=== PATIENT | male | born 1935 | race Caucasian/White ===

== ENCOUNTER 2020-03-23 08:45 | Outpatient (CLI) | payer MEDICARE, SELFPAY ==
--- NOTE | ~2020-03-23 | MR_ITS ---
EXAMINATION: MR lumbar spine wo con EXAM DATE: 03/23/2020 10:06 INDICATION: 2 back surgeries. Back pain. TECHNIQUE: Multi-sequential, multiplanar MR images of the lumbar spine were obtained without contrast . Sagittal T1, T2, T2 fat saturation images. Axial T2 weighted images. Comparison is made to prior examination from 08/10/2019. FINDINGS: There is moderate to severe disc disease L3-4 and L4-5. There is 3 mm anterolisthesis L3 on L4 and 2 mm retrolisthesis L4 on L5. Mild L5-S1 disc disease. The conus medullaris terminates at the L1/2 level and has normal signal intensity and morphology. Prior left hemilaminotomy is L4-5. Omid jarek soft tissue is unremarkable. Level by level evaluation: T12-L1: Disc does not extend beyond the endplate margin. Facet arthropathy: Minimal. Neural foraminal stenosis: No stenosis. Central canal stenosis: No stenosis. L1-L2: Disc does not extend beyond the endplate margin. Facet arthropathy: Mild. Neural foraminal stenosis: No stenosis. Central canal stenosis: No stenosis. L2-L3: There is a mild diffuse disc bulge. Facet arthropathy: Mild to moderate. There is a left facet joint synovial cyst. Neural foraminal stenosis: Mild bilateral. Central canal stenosis: Mild. L3-L4: There is a large diffuse disc bulge. Facet arthropathy: Severe . Ligamentum flavum enlargement. Neural foraminal stenosis: Severe left, moderate to severe right. Central canal stenosis: Severe. L4-L5: There is a moderate to large diffuse disc bulge. Facet arthropathy: Moderate. Neural foraminal stenosis: Severe left, moderate to severe right. Central canal stenosis: Posterior decompression. L5-S1: There is a moderate diffuse disc bulge. Facet arthropathy: Mild to moderate. Neural foraminal stenosis: Moderate to severe left, moderate right. Central canal stenosis: Mild to moderate. Interval progression of the disc disease and stenosis at the L3-4 level. IMPRESSION: 1. L3-4 grade 1 anterolisthesis, severe central canal stenosis with mild progression compared to 201 9. 2. L3-4 and L4-5 significant neural foraminal stenosis. Reviewed, dictated and finalized at location A. IMPRESSION: 1. L3-4 grade 1 anterolisthesis, severe central canal stenosis with mild progr ession compared to 2019. 2. L3-4 and L4-5 significant neural foraminal stenosis.
== END 2020-03-23 08:46 | disposition home or self-care (01) ==
PROVIDERS: PCP Family Medicine; Visit Provider Nurse Practitioner Family
DX: M54.5 Low back pain (principal); M43.16 Spondylolisthesis, lumbar region; M48.061 Spinal stenosis, lumbar region without neurogenic claudication
CPT/HCPCS: 72148

== ENCOUNTER → 2021-08-09 03:09 | Outpatient (CLI) | payer MEDICARE, SELFPAY ==
[2021-08-10 07:19] LABS: SARS-CoV-2 RNA PCR Positive
== END ==
PROVIDERS: PCP Family Medicine; Visit Provider Family Medicine
DX: U07.1 COVID-19 (principal)
CPT/HCPCS: C9803; U0003; U0005

== ENCOUNTER → 2022-04-05 13:23 | Outpatient (CLI) | payer MEDICARE, SELFPAY ==
--- NOTE | ~2022-04-05 | DEXA_ITS ---
Bone Density Report Name: BINTA NICOLE Age: 87 Sex: Male Ethnicity: White Date of : 1935 Indication: screening for osteoporosis; height loss; postmenopausal Referring Provider: Alan, Allegra Rankin Study: Bone densitometry was performed. Exam Date: April 05, 2022 Accession number: [id number] Bone Density: Region BMD T-score Z-score Classification AP Spine (L1, L2) 1.125 0.7 1.9 Normal Femoral Neck (Left) 0.616 -2.3 -0.6 Osteopenia Total Hip (Left) 0.825 -1.4 -0.1 Osteopenia Femoral Neck (Right) 0.611 -2.3 -0.6 Osteopenia Total Hip (Right) 0.865 -1.1 0.2 Osteopenia Total Hip Mean 0.845 -1.3 0.1 Osteopenia World Health Organization criteria for BMD impression classify patients as: Normal (T-score at or above -1.0), Osteopenia (T-score between -1.0 and -2.5), or Osteoporosis (T-score at or below -2.5). 10-year Fracture Risk(1): Major Osteoporotic Fracture 10% Hip Fracture 4.5% Reported Risk Factors: [place] (), Neck BMD=0.611, BMI=28.4 (1) FRAX(R) Version 3.08. Fracture probability calculated for an untreated patient. Fracture probability may be lower if the patient has received treatment. Clinical Information Provided by Patient: Is being treated for osteoporosis Has used the following medications: Prolia (i.e. denosumab), Calcium Patient maximum height was 69.0 No regular weight bearing exercise Impression: The patient has low bone mass, based on the Left Femoral Neck T-score. The patient has an estimated ten-year risk of hip fracture of 4.5% and an estimated ten-year risk of major fracture of 10%, based on the WHO FRAX algorithm. Discussion: It is important to ask patients whether they are taking their medications and to encourage continued and appropriate compliance with their osteoporosis therapies to reduce fracture risk. It is also important to review their risk factors and encourage appropriate calcium and vitamin D intakes, exercise, fall prevention and other lifestyle measures. Follow-Up: Consider repeating this study in 2 years to reassess this patient's status, or sooner if there is some new clinical indication. Reported by: JANNA on 04/05/2022 2:04:00 PM. Reviewed, dictated and finalized at location AValeria BRUNNER
== END ==
PROVIDERS: PCP Family Medicine; Visit Provider Internal Medicine Endocrinology, Diabetes & Metabolism
DX: M81.0 Age-related osteoporosis without current pathological fracture (principal); M85.852 Other specified disorders of bone density and structure, left thigh; M85.851 Other specified disorders of bone density and structure, right thigh
CPT/HCPCS: 77080

== ENCOUNTER 2023-03-14 14:23 | Outpatient (CLI) | payer MEDICARE, SELFPAY ==
[2023-03-14 19:33] LABS: Alanine Aminotransferase 24 U/L (6-50); Albumin Level 4.1 g/dL (3.5-5.1); Alkaline Phosphatase 63 U/L (38-126); Anion Gap 4 mmol/L (8-16); Aspartate Amino Transferase 35 U/L (17-59); Bilirubin,Total 0.6 mg/dL (0.2-1.3); Blood Urea Nitrogen 39 mg/dL (9-20); Calcium 9.3 mg/dL (8.4-10.2); Carbon Dioxide 33 mmol/L (22-30); Chloride 101 mmol/L (98-107); Estimated Glomerular Filt Rate 41; Glucose 115 mg/dL (65-110); Potassium 4.4 mmol/L (3.4-5.0); Sodium 138 mmol/L (137-145)
== END 2023-03-14 14:24 | disposition home or self-care (01) ==
LOC: ANHGOSHLAB 14:24
PROVIDERS: PCP Family Medicine; Visit Provider Family Medicine
DX: R73.03 Prediabetes (principal); I10 Essential (primary) hypertension
CPT/HCPCS: 36415; 80053; 83036

== ENCOUNTER 2023-03-19 09:36 | Outpatient (CLI) | payer MEDICARE, SELFPAY ==
--- NOTE | ~2023-03-19 | MR_ITS ---
MRI of the lumbar spine Clinical History: Pain Technique: Axial T2-weighted images, and sagittal T1-weighted, T2-weighted, and T2 fat-sat images wer e acquired. Findings: No acute fracture seen. Stable 6 mm anterolisthesis of L3 over L4. There is severe degenera tive disc narrowing at L3-L4, L4-L5, and L5-S1. No suspicious bone marrow signal abnormality seen. At L1-L2, there is no disc bulge or herniation. There is minimal facet joint hypertrophy. No spinal c anal stenosis or neural foraminal narrowing. At L2-L3, there is advanced facet arthropathy with minimal disc bulge. There is an associated 6 mm le ft synovial cyst, which mildly compresses the thecal sac. Neural foramina are minimally narrowed. At L3-L4, disc bulge and uncovering is present with probable left foraminal disc protrusion. There is also severe facet arthropathy. These factors all contribute to severe thecal sac compression/spinal canal stenosis and severe left neural foraminal narrowing. There is moderate right neural foraminal n arrowing. At L4-L5, there is diffuse disc bulge and severe facet arthropathy. No central canal stenosis. There is severe bilateral neural foraminal narrowing, left worse than right. At L5-S1, there is diffuse disc bulge and moderate facet arthropathy. No spinal canal stenosis. There is severe bilateral neural foraminal narrowing. Paravertebral soft tissues are unremarkable. Impression: Severe degenerative spondylosis at L3-L4, L4-L5, and L5-S1, as detailed above. 6 mm anterolisthesis of L3 over L4, similar to prior exam. Reviewed, dictated and finalized at [facility]. Impression: Severe degenerative spondylosis at L3-L4, L4-L5, and L5-S1, as detailed above. 6 mm anterolisthesis of L3 over L4, similar to prior exam.
== END 2023-03-19 09:37 | disposition home or self-care (01) ==
PROVIDERS: PCP Family Medicine; Visit Provider Family Medicine
DX: R29.898 Other symptoms and signs involving the musculoskeletal system (principal); R26.81 Unsteadiness on feet; M54.50 Low back pain, unspecified; G89.29 Other chronic pain; R29.6 Repeated falls; M47.896 Other spondylosis, lumbar region
CPT/HCPCS: 72148

== ENCOUNTER 2023-04-18 09:54 | Outpatient (CLI) | payer MEDICARE, SELFPAY ==
[2023-04-18 12:57] LABS: Alanine Aminotransferase 19 U/L (6-50); Albumin Level 3.9 g/dL (3.5-5.1); Alkaline Phosphatase 43 U/L (38-126); Anion Gap 2 mmol/L (8-16); Aspartate Amino Transferase 28 U/L (17-59); Bilirubin,Total 0.7 mg/dL (0.2-1.3); Blood Urea Nitrogen 28 mg/dL (9-20); Calcium 8.6 mg/dL (8.4-10.2); Carbon Dioxide 33 mmol/L (22-30); Chloride 102 mmol/L (98-107); Estimated Glomerular Filt Rate 38; Glucose 106 mg/dL (65-110); Potassium 4.2 mmol/L (3.4-5.0); Sodium 137 mmol/L (137-145)
[2023-04-18 12:59] LABS: Parathyroid Intact 99.9 pg/mL (7.5-53.5)
[2023-04-18 13:01] LABS: Hemoglobin A1C 5.3 % (<5.7)
[2023-04-18 13:18] LABS: Free T4 Free Thyroxine 1.21 ng/mL (0.78-2.19); Vitamin D 25 Hydroxy 44.8 ng/mL
== END 2023-04-18 09:55 | disposition home or self-care (01) ==
LOC: ANHGOSHLAB 09:55
PROVIDERS: PCP Family Medicine; Visit Provider Nurse Practitioner
DX: M81.0 Age-related osteoporosis without current pathological fracture (principal); R73.01 Impaired fasting glucose
CPT/HCPCS: 36415; 80053; 82306; 83036; 83970; 84439; 84443

== ENCOUNTER 2023-04-23 10:00 | Outpatient (RCR) | payer MEDICARE, SELFPAY ==
--- NOTE | 2023-03-26 14:53 | PTOPEVAL1 ---
Assessment and note entered by Mariela Wang, PT, DPT Evaluation Information Assessment Status Evaluation Diagnosis unsteadiness on feet Onset 6-8 months Subjective Information Pt states he has chronic low back pain, he states he is limited in his standing tolerance d/t this. He states in the last 6-8 month he has noticed and increase in balance issues and unsteadiness when he is walking. He reports 4 falls in the last 6 months, he attributes all of these to balance. He is using a cane today and has been for the last 2 weeks, he states he would like to feel stable enough to get rid of the cane. Pt states he like to spend time outdoors walking and fishing. Reported Pain Level Pain Score 0: Self Report Assessment PT Clinical Summary Leobardo presents to therapy today for his initial evaluation with a diagnosis of unsteadiness on feet . Today he demonstrates decreased BLE strength L>R , decreased static and standing balance, and decreased functional mobility. He demonstrates significant L ankle weakness resulting in a mild foot drop during ambulation. He demonstrates a 40 /56 on the CORDOBA balance scale placing him at an increased risk for falls. Skilled physical therapy services are indicated to address the deficits noted above, to improve balance, strength, functional mobility, and to return to PLOF. Plan of Care Interventions Electrical Stimulation,Gait Training,Hot Pack/Cold Pack,Manual Therapy,Neuro Re-education,Patient/ Caregiver Educati,Therapeutic Activities, Therapeutic Exercise PT Services Indicated Yes Treatment Frequency and 2x/wk for 4 wks Duration These treatments will address the objective and functional deficits as defined above. The patient will be advanced safely and appropriately in order for the patient to progress towards his/her prior level of function. Additional exercises will be introduced and as well as a comprehensive home exercise program upon discharge, if needed, ?to ensure carryover of functional gains achieved in the clinic. This treatment plan has been reviewed and agreement upon by the patient.
--- NOTE | 2023-04-23 11:36 | PTOPDC ---
Assessment and note entered by Mariela Wang, PT, DPT Evaluation Information Assessment Status Discharge Diagnosis unsteadiness on feet Onset 6-8 months Subjective Information Pt states things are going slow but sure. Pt reports 50% to where he would like to be. Pt states his foot drop and balance and the biggest deficits. Reported Pain Level Pain Score 0: Self Report Assessment PT Clinical Summary Leobardo presents to therapy today for his initial evalution with a diagnosis of unsteadiness on feet . Today he reports improvement in his overall function despite having many measurable changes. His CORDOBA balance score did increased from 40/56 to 46/56 but his 2 min walk distance and 5xSTS time increased slightly. He declines any falls in the last month and states he feels good with continuing therpay on his own. He will be discharged at this time per pt request. If he needs additional therapy at a later date he will need a new order. Plan of Care PT Services Indicated No
== END 2023-04-23 15:48 | disposition home or self-care (01) ==
LOC: ANHGOSHPT 10:00
PROVIDERS: PCP Family Medicine; Visit Provider Family Medicine
DX: M54.50 Low back pain, unspecified (principal); R26.81 Unsteadiness on feet; R29.898 Other symptoms and signs involving the musculoskeletal system; G89.29 Other chronic pain
CPT/HCPCS: 97110; 97112; 97116; 97161; 97530

== ENCOUNTER 2023-05-21 06:56 | Day surgery (SDC) | payer MEDICARE, SELFPAY ==
[2023-05-09 13:19] VITALS: BMI 25.4
--- NOTE | ~2023-05-21 | XR_ITS ---
EXAMINATION: XR fluoroscopy no charge INDICATION: Left sacroiliac joint injection TECHNIQUE: 49 fluoroscopic images are submitted for review. Total fluoroscopic time is 7.4 seconds. COMPARISON: None available FINDINGS: Fluoroscopic images demonstrate injection of the left sacroiliac joint. Surgical clips are noted in the left pelvis. Please refer to procedure note for full details. IMPRESSION: 1. Please refer to procedure note for full details. Reviewed, dictated and finalized at location D.
[2023-05-21 07:15] VITALS: BP 121/54; PULSE 57; RESP 20; TEMP 36.7; O2SAT 99
--- NOTE | 2023-05-21 07:19 | WPDHPUPDATE1 ---
History and Physical Update Update Date/Time: 05/21/23 07:19 History and Physical has been reviewed, including an updated exam of the patient. There are NO changes in the patient's condition. Risks, benefits, and alternatives have been discussed and questions answered. Patient agrees to proceed with procedure.
[2023-05-21 08:20] VITALS: BP 144/59; PULSE 60; RESP 15; O2SAT 98
[2023-05-21] MEDS: LIDOCAINE HCL 1% PF INJ 5 ML VIAL 4 ML XX (08:20)
[2023-05-21] MEDS: BUPivacaine HCL 0.5% 10 ML AMP INFILTRATE (08:22)
[2023-05-21 08:27] VITALS: BP 132/56; PULSE 60; RESP 18; O2SAT 99
--- NOTE | 2023-05-21 09:39 | W.PM.PROC2 ---
Procedure Note - Detailed Date of Procedure 05/21/23 Pre-op Diagnosis Left Sacroiliitis Sacral Spondylosis Post-op Diagnosis Same Procedure Performed Left SAcroiliac Joint Steroid Injection with Fluoroscopy Surgeon Ger Torres MD Scientific Diver None. Anesthesia Local Indications Low Back Pain Findings None Description of Procedure INFORMED CONSENT: Risks, benefits and alternatives to the procedure were discussed in detail with the patient who expressed explicit understanding and consent to proceed. Patient was informed verbally and in written form regarding the risks associated with the procedure including the low risk of serious infection, bleeding/bruising, allergic reaction, nerve or organ injury, paralysis, procedural site pain or discomfort, worsening pain and/or mobility, failure to treat and/or disfigurement. The patient expressed explicit understanding and consent to proceed. All materials required for the procedure were available prior to procedure start. Site and side were marked prior to procedure and confirmed in the presence of the patient. PROCEDURE IN DETAIL: The patient was brought to the procedural suite and placed in the prone position. Patient was made comfortable with use of pillows under the head/chest, hips and ankles. Skin overlying the injection site on the affected side(s) was prepared broadly with ChloraPrep applicator and draped in a sterile manner. Aseptic technique was used throughout. The left SI joint was identified in the AP view and contralateral oblique angulation with caudal tilt was utilized to optimize visualization of the inferior and medial joint line representing the posterior portion of the joint. Local anesthesia was established by infiltration with approximately 5 mL of 2% lidocaine via a 1-1/2 inch 27-gauge needle. A 22-gauge 3.5 inch Quincke spinal needle was advanced until the needle entered the inferior third of the joint space approximately 1cm cephalad from its most inferior point. In the AP view, 0.5 mL of Omnipaque-300 contrast medium was injected after negative aspiration for CSF, blood or other bodily fluid, showing appropriate intra-articular spread of contrast without evidence of intravascular, perineural or intrathecal placement. A 2.0 mL solution containing 10 mg of dexamethasone in 0.5% PF bupivacaine was injected after repeat negative aspiration. Appropriate spread of the injectate was confirmed with washout of previous injected contrast. No parasthesias were elicited. Needle was removed completely intact without difficulty. Images were saved and documented in the patient chart. Patient's skin was cleansed and sterile bandage applied. The patient tolerated the procedure well. The patient was transported to the recovery area in stable condition where they were observed for an appropriate amount of time prior to discharge, without evidence of complication. The patient was instructed to avoid excessive activity for the next 48 hours, including climbing and frequent use of stairs. Showers only for 48 hours. They were instructed not to drive or operate heavy machinery for 24 hours. They are to monitor for severe headaches, fevers, chills, night sweats, erythema/swelling at the site or any other signs of infection, bleeding/bruising, bowel or bladder changes as well as new pain, weakness or numbness in the upper or lower extremity. Should they notice these changes, they are instructed to call our office immediately or report directly to the nearest Emergency Department if no answer or if after posted office hours. COMPLICATIONS: None COMMENTS: None EXPOSURE: Time: 7.4s, Dose: 3.34mGy CONTRAST WASTED: 14.5mL Omnipaque-300. Drains No Packing No Pathology None sent Complications No immediate complications Condition Stable Disposition PACU [facility] Billing Surgery - Charge Forward: Surgery Billing
== END 2023-05-21 08:49 | disposition home or self-care (01) ==
PROVIDERS: PCP Family Medicine; Visit Provider Anesthesiology Pain Medicine
PROC: (CPT G0260; principal; 2023-05-21 08:00)
DX: M46.1 Sacroiliitis, not elsewhere classified (principal)
CPT/HCPCS: G0260; 27096; 99199

== ENCOUNTER 2023-06-24 08:57 | Outpatient (CLI) | payer MEDICARE, SELFPAY ==
[2023-06-24 13:04] LABS: Basophils Percent Auto 0.4 % (0.2-1.2); Eosinophils Absolute Auto 0.2 K/mm3 (0-0.3); Eosinophils Percent Auto 4.3 % (0-4.4); Hematocrit 36.6 % (42.0-52.0); Hemoglobin 11.7 g/dL (14.0-18.0); Immature Granulocyte Absolute 0.02 K/mm3 (0.00-0.031); Immature Granulocyte Percent A 0.4 % (0-0.5); Lymphocytes Absolute Auto 1.71 K/mm3 (0.9-3.2); Lymphocytes Percent Auto 34.8 % (18.3-44.2); Mean Corpuscular Hemoglobin 31.4 pg (26-34); Mean Corpuscular Volume 98.1 fl (80-100); Mean Platelet Volume 10.7 fl (7.4-10.4); Monocytes Absolute Auto 0.6 K/mm3 (0.1-0.6); Monocytes Percent Auto 11.8 % (2.6-8.5); Neutrophils Absolute Auto 2.4 K/mm3 (1.3-6.7); Neutrophils Percent Auto 48.3 % (45.5-73.1); Platelet Count Result 133 k/mm3 (150-375); Red Blood Count 3.73 M/mm3 (4.6-6.20); Red Cell Distribution Width 12.5 % (11.5-14.5); White Blood Count 4.9 K/mm3 (4.5-10.0)
[2023-06-24 13:13] LABS: Alanine Aminotransferase 19 U/L (6-50); Albumin Level 3.6 g/dL (3.5-5.1); Alkaline Phosphatase 45 U/L (38-126); Anion Gap 1 mmol/L (8-16); Aspartate Amino Transferase 29 U/L (17-59); Bilirubin,Total 0.4 mg/dL (0.2-1.3); Blood Urea Nitrogen 22 mg/dL (9-20); Calcium 9.4 mg/dL (8.4-10.2); Carbon Dioxide 32 mmol/L (22-30); Chloride 100 mmol/L (98-107); Cholesterol 123 mg/dL (0-200); Estimated Glomerular Filt Rate 44; Glucose 91 mg/dL (65-110); HDL Direct 35 mg/dL; Sodium 133 mmol/L (137-145); Triglycerides 105 mg/dL (<150)
[2023-06-24 13:24] LABS: LDL Cholesterol Direct 74 mg/dL
[2023-06-25 00:20] LABS: Hemoglobin A1C 5.4 % (<5.7)
[2023-06-27 09:54] LABS: Vitamin D 1,25 (OH)2 Total 19 pg/mL (18-72); Vitamin D2 1,25 (OH)2 <8 pg/mL; Vitamin D3 1,25 (OH)2 19 pg/mL
[2023-06-27 18:48] LABS: PSA, Free <0.01 ng/mL; PSA, Total <0.1 ng/mL (<=4.0)
== END 2023-06-24 08:58 | disposition home or self-care (01) ==
PROVIDERS: Nurse Practitioner Family; PCP Family Medicine; Visit Provider Family Medicine
DX: R73.03 Prediabetes (principal); I10 Essential (primary) hypertension; Z12.5 Encounter for screening for malignant neoplasm of prostate; E55.9 Vitamin D deficiency, unspecified; E78.5 Hyperlipidemia, unspecified
CPT/HCPCS: 36415; 80053; 80061; 82652; 83036; 84153; 84154; 85025; G0103

== ENCOUNTER 2023-07-12 10:29 | Outpatient (CLI) | payer MEDICARE, SELFPAY ==
[2023-07-12 11:58] LABS: Basophils Percent Auto 0.3 % (0.2-1.2); Eosinophils Absolute Auto 0.3 K/mm3 (0-0.3); Eosinophils Percent Auto 4.4 % (0-4.4); Hematocrit 36.5 % (42.0-52.0); Hemoglobin 11.8 g/dL (14.0-18.0); Immature Granulocyte Absolute 0.01 K/mm3 (0.00-0.031); Immature Granulocyte Percent A 0.2 % (0-0.5); Immature Platelet Fraction Pct 5.8 % (0.9-11.2); Lymphocytes Absolute Auto 1.75 K/mm3 (0.9-3.2); Lymphocytes Percent Auto 29.4 % (18.3-44.2); Mean Corpuscular HGB Conc 32.3 g/dl (32-36); Mean Corpuscular Hemoglobin 31.4 pg (26-34); Mean Corpuscular Volume 97.1 fl (80-100); Mean Platelet Volume 10.9 fl (7.4-10.4); Monocytes Absolute Auto 0.6 K/mm3 (0.1-0.6); Monocytes Percent Auto 10.7 % (2.6-8.5); Neutrophils Absolute Auto 3.3 K/mm3 (1.3-6.7); Platelet Count Result 144 k/mm3 (150-375); Red Blood Count 3.76 M/mm3 (4.6-6.20); Red Cell Distribution Width 12.6 % (11.5-14.5)
== END 2023-07-12 10:30 | disposition home or self-care (01) ==
PROVIDERS: PCP Family Medicine; Visit Provider Nurse Practitioner Family
DX: D69.6 Thrombocytopenia, unspecified (principal); M10.9 Gout, unspecified
CPT/HCPCS: 36415; 84550; 85025; 85055

== ENCOUNTER 2023-08-26 01:58 | Day surgery (SDC) | payer MEDICARE, SELFPAY ==
[2023-08-15 11:27] VITALS: BMI 26.6
--- NOTE | 2023-08-15 11:31 | PC.NURSE ---
Report to the Outpatient Waiting Room, entrance under the green pavilion located off [facility], at time _0700_ on date _[id number]_. Planned Procedure Time: _0900_. Time changes happen often and if your time is changed the preop area will call you the afternoon before. - You and your visitor will be asked to self-screen and do not enter if you have any COVID symptoms. - A mask is optional within the hospital at this time. 1. NPO after midnight. 2. Take a bath/shower the evening before and morning of procedure. 3. Please take your scheduled medications, especially blood pressure and diabetes medications as prescribed, with small sips of water prior to procedure. You may also take your prescribed pain medicaitons as needed. DO NOT STOP ANY OF YOUR OTHER PRESCRIPTION MEDICATIONS PRIOR TO SURGERY ?EXCEPT THE FOLLOWING Please no make-up, nail croatian, hairspray, perfume, deodorant, or body powder the day of surgery. No jewelry (including any body piercings) or valuables the day of surgery, leave them at home. Please take a shower or bath the night before, or the morning of, surgery with an antibacterial soap. Wear comfortable, loose fitting clothing. - Jewelry must be removed prior to entering the operating room. Rings and piercings that are not removed may be cut off. - The hospital will not accept responsibility for valuables. - Please leave all valuables, including medications, at home the day of surgery. If you are going home after surgery, a licensed p d driver must drive you home. - NO public transportation without another adult if you receive anesthesia. - We recommend that an adult stay with you for 24 hours following discharge. - We also recommend that you do not drive, make important decision, drink alcoholic beverages, or take any drugs that were not prescribed by your health care provider for at least 24 hours after your discharge time. Follow any additional instructions given to you from your surgeon. If you or anyone in your household have experienced Covid symptoms in the past week, please notify your surgeon or the nurse liaison at the phone number below for possible testing. Telephone instructions given to __Patient___and asked if any additional questions and then verbalized understanding. Patient advised to call surgeon office or pre surgery nurse liaison [phone] if any additional questions.
--- NOTE | ~2023-08-26 | XR_ITS ---
EXAMINATION: XR fluoroscopy no charge DATE: 08/26/2023 10:14 INDICATION: Lumbar decompression TECHNIQUE: 11 fluoroscopic images of the lumbar spine were obtained during procedure performed by Dr. Torres. Radiologist was not present for the imaging or procedure. The amount of fluoroscopy time used during this procedure was 9.7 minutes. COMPARISON: None. FINDINGS: There is severe lower lumbar spondylosis. Fluoroscopic images demonstrate surgical instrumentation pr ojecting over the posterior elements on the left and right sides of the lower lumbar spine. IMPRESSION: 1. Fluoroscopy utilized during reported lumbar decompression bilaterally at the lower lumbar spine. S ee procedure note for further detail. Reviewed, dictated and finalized at location A. IMPRESSION: 1. Fluoroscopy utilized during reported lumbar decompression bilaterally at the lower lumbar spine. See procedure note for further detail.
--- NOTE | 2023-08-26 04:41 | PM.HPGS ---
History of Present Illness History of Present Illness Consent: Risks, benefits, and alternatives have been discussed and questions answered. Patient agrees to proceed with procedure. Chief complaint: spinal stenosis lumbar region Narrative: Leobardo Torres is a 88 year old male with chronic recalcitrant low back and lower extremity pain secondary to multilevel moderate to severe central canal stenosis at L2-3 and L3-4 with ligamentum flavum hypertrophy resulting in intermittent neurogenic claudication and marked activity intolerance/disability despite aggressive conservative management over the past several years. Patient presents for bilateral L2-3, L3-4 minimally invasive lumbar decompression under fluoroscopic guidance with possible epidurogram. 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[place] artery Chest pain Chronic low back pain Chronic low back pain without sciatica Chronic systolic (congestive) heart failure CKD (chronic kidney disease) stage 3, GFR 30-59 ml/min Conjunctivitis, right eye Dilated cardiomyopathy Dyslipidemia, goal LDL below 100 Environmental allergies Essential (primary) hypertension Fracture of right ankle, lateral malleolus 03/21/2001 Gout attack History of prostate cancer Hypogonadism in male Osteoporosis Pancytopenia Prediabetes Soreness of tongue Spinal stenosis 06/2015 Surgical History Surgical History H/O lumbar discectomy L4-5 2001 History of cholecystectomy 2007 History of hemilaminectomy L3-4 07/09/2016 History of prostatectomy 2004 History of surgery of head SCC of scalp excision 05/2020 Hx of CABG 1993 Hx of lumbosacral spine surgery 2001 and 2015 Family History Family History Mother Lupus Son Lymphoma Social History Social History Smoking status: Never smoker Second hand tobacco smoke exposure: No Alcohol intake: current Drinks per week: 1 Alcohol use details: 2 beers consumed weekly Substance use: never Substance use type: does not use Lack of Transportation: No Lack of Food: Never True Current Housing: I Have Housing Concerned About Future Housing: No Difficulty Paying Gas/Electric Bills: No Difficulty Paying for Meds: No Currently Unemployed: No Education: High School Diploma/GED Difficulty w/ Childcare or Family Care: No Living arrangements: with family Additional living arrangements comments: Occupation/Education: retired Gender identity (if verbalized by the patient): Male Spiritual care concerns: No Meds Home Medications and Allergies Home Medications Medication Instructions Recorded Confirmed Type amlodipine 5 mg tablet 5 mg PO DAILY 10/26/19 08/15/23 History hydralazine 25 mg tablet 25 mg PO BID 10/26/19 08/15/23 History hydrochlorothiazide 12.5 mg tablet 12.5 mg PO DAILY 10/26/19 08/15/23 History carvedilol 25 mg tablet 37.5 mg PO Q12H 07/06/21 08/15/23 History denosumab 60 mg/mL subcutaneous 60 mg subcut [id number] 07/06/21 08/15/23 History syringe (Prolia) simvastatin 20 mg tablet 20 mg PO QHS 07/06/21 08/15/23 History esomeprazole magnesium 40 mg 40 mg PO DAILY PRN GERD #90 caps 11/30/22 08/15/23 Rx capsule,delayed release fluticasone propionate 50 1 spray intranasal DAILY #47.4 mL 03/14/23 08/15/23 Rx mcg/actuation nasal spray,suspension (Allergy Relief (fluticasone)) aspirin 81 mg tablet,delayed 81 mg PO DAILY 07/12/23 08/15/23 History release (Adult Aspirin Regimen) ferrous sulfate 325 mg (65 mg 325 mg PO DAILY 3 months #90 tabs 07/12/23 08/15/23 Rx iron) tablet tramadol 50 mg tablet 50 mg PO Q6H PRN pain #30 tabs 09
--- NOTE | 2023-08-26 05:05 | WPDHPUPDATE1 ---
History and Physical Update Update Date/Time: 08/26/23 05:05 History and Physical has been reviewed, including an updated exam of the patient. There are NO changes in the patient's condition. Risks, benefits, and alternatives have been discussed and questions answered. Patient agrees to proceed with procedure.
[2023-08-26 07:22] VITALS: BP 129/55; PULSE 60; RESP 20; TEMP 36.1; O2SAT 98
[2023-08-26] MEDS: LACTATED RINGERS 1,000 ML 30 ML IV CONT (07:38)
--- NOTE | 2023-08-26 07:47 | WPDANESEPPF ---
Anes - Initial Pre Proc Eval Procedure: Operation Date: 08/26/23 09:00 Proposed Procedures p Bilateral L2-3, L3-4 Minimally Invasive Lumbar Decompression Under Fluoroscopic Guidance with Possible Epidurogram - Ger Torres MD Date/Time: 08/26/23 07:47 Surgeon: Ger Torres MD Pre Op Diagnosis: spinal stenosis lumbar region Patient Data Age: 88 Gender: M Height: 1.75 m Weight: 79.1 kg Last Vital Signs Temp 36.1 C L 08/26/23 07:22 Pulse 60 08/26/23 07:22 Resp 20 08/26/23 07:22 BP 129/55 L 08/26/23 07:22 Pulse Ox 98 08/26/23 07:22 O2 Del Method Room Air 08/26/23 07:22 Allergies Allergy/AdvReac Type Severity Reaction Status Date / Time No Known Allergies Allergy Unknown Verified 08/26/23 07:12 Home Medications Medication Instructions Recorded Confirmed Type amlodipine 5 mg tablet 5 mg PO DAILY 10/26/19 08/15/23 History hydralazine 25 mg tablet 25 mg PO BID 10/26/19 08/15/23 History hydrochlorothiazide 12.5 mg tablet 12.5 mg PO DAILY 10/26/19 08/15/23 History carvedilol 25 mg tablet 37.5 mg PO Q12H 07/06/21 08/15/23 History denosumab 60 mg/mL subcutaneous 60 mg subcut [id number] 07/06/21 08/15/23 History syringe (Prolia) simvastatin 20 mg tablet 20 mg PO QHS 07/06/21 08/15/23 History esomeprazole magnesium 40 mg 40 mg PO DAILY PRN GERD #90 caps 11/30/22 08/15/23 Rx capsule,delayed release fluticasone propionate 50 1 spray intranasal DAILY #47.4 mL 03/14/23 08/15/23 Rx mcg/actuation nasal spray,suspension (Allergy Relief (fluticasone)) aspirin 81 mg tablet,delayed 81 mg PO DAILY 07/12/23 08/15/23 History release (Adult Aspirin Regimen) ferrous sulfate 325 mg (65 mg 325 mg PO DAILY 3 months #90 tabs 07/12/23 08/15/23 Rx iron) tablet tramadol 50 mg tablet 50 mg PO Q6H PRN pain #30 tabs 07/12/23 08/15/23 Rx baclofen 10 mg tablet 10 mg PO QHS PRN muscle spasm #30 07/25/23 08/15/23 Rx tabs diclofenac sodium 3 % topical gel 1 applic topical BID #100 grams 07/25/23 08/15/23 Rx Patient hx anesthesia problems: none Family hx anesthesia problems: none Results Review: All pre-operative results and documents have been reviewed as part of the pre-operative evaluation. [facility] Past Medical History Medical History Anemia CAD in [place] artery Chest pain Chronic low back pain Chronic low back pain without sciatica Chronic systolic (congestive) heart failure CKD (chronic kidney disease) stage 3, GFR 30-59 ml/min Conjunctivitis, right eye Dilated cardiomyopathy Dyslipidemia, goal LDL below 100 Environmental allergies Essential (primary) hypertension Fracture of right ankle, lateral malleolus 03/21/2001 Gout attack History of prostate cancer Hypogonadism in male Osteoporosis Pancytopenia Prediabetes Soreness of tongue Spinal stenosis 06/2015 Surgical History Surgical History H/O lumbar discectomy L4-5 2001 History of cholecystectomy 2008 History of hemilaminectomy L3-4 07/09/2016 History of prostatectomy 2004 History of surgery of head SCC of scalp excision 05/2020 Hx of CABG 1993 Hx of lumbosacral spine surgery 2001 and 2015 Family History Family History Mother Lupus Son Lymphoma Social History Social History Smoking status: Never smoker Second hand tobacco smoke exposure: No Alcohol intake: current Drinks per week: 1 Alcohol use details: 2 beers consumed weekly Substance use: never Substance use type: does not use Lack of Transportation: No Lack of Food: Never True Current Housing: I Have Housing Concerned About Future Housing: No Difficulty Paying Gas/Electric Bills: No Difficulty Paying for Meds: No Currently Unemployed: No Education: High School Diploma/GED Difficulty w/ Childca
[2023-08-26] MEDS: ceFAZolin 2 GM/D5W 50 ML 2 GM/50 ML BAG IVPB (09:01)
[2023-08-26] MEDS: BUPIVACAINE/EPINEPHRINE 0.5% 50 ML VIAL INFILTRATE (09:17)
[2023-08-26] MEDS: LIDO 1%/EPINEPHRINE 1:100,000 50 ML VIAL INFILTRATE (09:17)
[2023-08-26 10:14] VITALS: BP 112/47; PULSE 53; RESP 14; O2SAT 99
[2023-08-26 10:45] VITALS: BP 113/52; PULSE 58; RESP 16
[2023-08-26 11:15] VITALS: BP 116/50; PULSE 62; RESP 20
[2023-08-26 11:30] VITALS: RESP 20
--- NOTE | 2023-08-26 12:56 | W.PM.PROC2 ---
Procedure Note - Detailed Date of Procedure 08/26/23 Pre-op Diagnosis spinal stenosis lumbar region with neurogenic claudication Post-op Diagnosis Same Procedure Performed Bilateral L2-3, L3-4 Minimally Invasive Lumbar Decompression with Fluoroscopy. Surgeon Ger Torres MD Anesthesia MAC and Local Description of Procedure INFORMED CONSENT: Risks, benefits, and alternatives to the procedure were discussed in detail with the patient who expressed explicit understanding and consent to proceed. Risks discussed with the patient included but were not limited to risk of serious local or systemic infection, bleeding/bruising, epidural hematoma, dural puncture or tear resulting in CSF leak and acute or chronic post-dural puncture headache, scarring/deformity, immediate or delayed allergic reaction, decreased mobility, failure to treat pain, inadvertent neurologic injury resulting in increased pain, weakness/paralysis or numbness, inadvertent organ injury, need for additional surgery, allergic reaction, heart attack, stroke, seizure, coma, . Anesthetic risks were also briefly discussed by myself and the rail loader. The patient expressed understanding and consent to proceed, agreeing that potential benefits outweigh risk of harm. All materials required for the procedure were immediately available prior to procedure start. Site and side were confirmed with the patient, compared carefully to the patient chart and consent, and marked prior to transport to the operating room. Appropriate time out procedure was performed per protocol prior to procedure start. PROCEDURE IN DETAIL: The patient was brought to the operative suite and placed in the prone position. Appropriate ASA standard monitors were attached. Anesthesia was initiated without difficulty or event. Eyes were protected. Pressure points were padded with joints in neutral position. When appropriate, breasts and genitals were evaluated and protected. Eyes were checked and were free from undue pressure. Skin overlying the procedure site was marked with sterile marker. Surgical area was prepared in a typical sterile fashion with ChloraPrep and allowed to dry for at least 3 minutes prior to sterilely draping the surgical site. The lumbar spine was identified in the AP fluoroscopic view with slight cephalad tilt perfectly aligning the endplates at the targeted levels with spinous processes bisecting the transpedicular plane. After identifying the intended incision site approximately 1.5 levels inferior to the level of interest, the area was anesthetized by infiltration with no more than 10ml of a 1:1 admixture of 0.5% PF bupivacaine with epinephrine and 2% PF lidocaine with epinepherine via a 27-gauge needle after negative aspiration. A 22-gauge spinal needle was used to provide additional and adequate local anesthesia to the level of the interspinous ligament, ligamentum flavum and the periosteum of the lamina at the intended treatment levels. In the AP view, a #11 scalpel blade was used to create a single stab incision at the intended incision site on the targeted side. The Vertos MILD kit was opened and the included cannula and trocar assembly was advanced through the incision to contact the midportion of the right lamina just adjacent to the spinous process at L4. Once seated, the lateral view was used to gauge depth demonstrating the most anterior tip of the trocar posterior to the epidural space at all times. The nursing care attendant-provided cannula stabilizer was placed over the trocar flush to the patient's lumbar flank. Cannula obturator with handle was removed. Included depth guide was then attached to the insertion port on the cannula and set to an intial depth of 15 mm. The bone rongeur was advanced to the depth of the lumbar lamina at the targeted level. Depth gauge was then adjusted allowing rongeur tip to advance in the contralateral oblique view to the anterior border of the superior and inferior
== END 2023-08-26 11:33 | disposition home or self-care (01) ==
PROVIDERS: PCP Family Medicine; Visit Provider Anesthesiology Pain Medicine
PROC: (CPT 0275T; principal; 2023-08-26 09:00)
DX: M48.062 Spinal stenosis, lumbar region with neurogenic claudication (principal); M47.817 Spondylosis without myelopathy or radiculopathy, lumbosacral region; M96.1 Postlaminectomy syndrome, not elsewhere classified; G89.29 Other chronic pain; Z00.6 Encounter for examination for normal comparison and control in clinical research program; I12.9 Hypertensive chronic kidney disease with stage 1 through stage 4 chronic kidney disease, or unspecified chronic kidney disease; N18.30 Chronic kidney disease, stage 3 unspecified; I50.22 Chronic systolic (congestive) heart failure; I42.0 Dilated cardiomyopathy; E78.5 Hyperlipidemia, unspecified; I25.10 Atherosclerotic heart disease of native coronary artery without angina pectoris; D64.9 Anemia, unspecified; M81.0 Age-related osteoporosis without current pathological fracture; R73.03 Prediabetes; Z79.82 Long term (current) use of aspirin; Z95.1 Presence of aortocoronary bypass graft
CPT/HCPCS: 0275T; 99199; C1889; J0690; J2704; J3010; J7120

== ENCOUNTER 2023-12-04 07:51 | Observation (INO) | payer MEDICARE, SELFPAY ==
[2023-12-04] VITALS (13 sets, daily range): BP systolic 95–119; BP diastolic 46–65; PULSE 64–78; RESP 12–20; TEMP 36.5–36.7; O2SAT 94–98; BMI 24.4
--- NOTE | ~2023-12-04 | XR_ITS ---
XR chest 2V 12/04/2023 08:33 Indication: Increased weakness and cough Procedure: AP and lateral views of the chest Comparison: Comparison to multiple prior studies sequentially, with oldest reviewed study dated 11/23. Findings: Status post median sternotomy for CABG. Heart size normal. Right basilar atelectasis. No ed berna, pleural effusion or pneumothorax. No acute osseous abnormality. Impression: 1: Right basilar atelectasis. Reviewed, dictated and finalized at location B. L FIXER Impression: 1: Right basilar atelectasis.
--- NOTE | 2023-12-04 08:05 | ECG_ITS ---
Measurements Intervals [place] Rate: 68 P: 71 MT: 164 QRS: 12 QRSD: 100 T: 85 QT: 418 QTc: 446 Interpretive Statements SINUS RHYTHM CANNOT RULE OUT SEPTAL INFARCT, AGE INDETERMINATE BORDERLINE ST-T WAVE ABNORMALITY- HIGH LATERAL LEADS BASELINE ARTIFACT- II, III, V4-V6 ABNORMAL ECG NO PREVIOUS ECG AVAILABLE FOR COMPARISON Electronically Signed On 12-04-2023 8:30:27 RHEOLOGIST by Brock Arreola D.O.
[2023-12-04 08:29] LABS: Basophils Percent Auto 0.2 % (0.2-1.2); Eosinophils Percent Auto 0.1 % (0-4.4); Hematocrit 34.6 % (42.0-52.0); Hemoglobin 11.4 g/dL (14.0-18.0); Immature Granulocyte Absolute 0.11 K/mm3 (0.00-0.031); Immature Granulocyte Percent A 0.9 % (0-0.5); Lymphocytes Absolute Auto 0.96 K/mm3 (0.9-3.2); Lymphocytes Percent Auto 7.8 % (18.3-44.2); Mean Corpuscular HGB Conc 32.9 g/dl (32-36); Mean Corpuscular Hemoglobin 30.9 pg (26-34); Mean Corpuscular Volume 93.8 fl (80-100); Mean Platelet Volume 10.2 fl (7.4-10.4); Monocytes Absolute Auto 1.3 K/mm3 (0.1-0.6); Monocytes Percent Auto 10.4 % (2.6-8.5); Neutrophils Absolute Auto 9.9 K/mm3 (1.3-6.7); Neutrophils Percent Auto 80.6 % (45.5-73.1); Platelet Count Result 188 k/mm3 (150-375); Red Blood Count 3.69 M/mm3 (4.6-6.20); Red Cell Distribution Width 13.1 % (11.5-14.5); White Blood Count 12.3 K/mm3 (4.5-10.0)
[2023-12-04 08:31] LABS: Alanine Aminotransferase 29 U/L (6-50); Albumin Level 3.3 g/dL (3.5-5.1); Alkaline Phosphatase 99 U/L (38-126); Anion Gap 9 mmol/L (8-16); Aspartate Amino Transferase 28 U/L (17-59); Bilirubin,Total 1.3 mg/dL (0.2-1.3); Blood Urea Nitrogen 49 mg/dL (9-20); Carbon Dioxide 30 mmol/L (22-30); Chloride 95 mmol/L (98-107); Estimated CRCL calculation 23 ml/min; Estimated Glomerular Filt Rate 30; Glucose 148 mg/dL (65-110); Potassium 3.1 mmol/L (3.4-5.0); Sodium 134 mmol/L (137-145)
--- NOTE | 2023-12-04 09:04 | ED.GENADULT ---
HPI - General Adult General Chief complaint: Weakness Stated complaint: Weakness Time Seen by Provider: 12/04/23 08:12 History of Present Illness HPI narrative: 88-year-old male presenting to the emergency department for evaluation of persistent generalized weakness. Patient states approximately 2 weeks ago he was diagnosed with an upper respiratory infection. Patient also recently had his grown son and has been depressed from that. Family states that the patient has had increased generalized weakness, decreased p.o. intake and has been most of the day in bed. Related Data Home Medications Medication Instructions Recorded Confirmed amlodipine 5 mg tablet 5 mg PO DAILY 10/26/19 12/04/23 hydralazine 25 mg tablet 10 mg PO BID 10/26/19 12/04/23 hydrochlorothiazide 12.5 mg tablet 12.5 mg PO DAILY 10/26/19 12/04/23 carvedilol 25 mg tablet 37.5 mg PO Q12H 07/06/21 12/04/23 denosumab 60 mg/mL subcutaneous 60 mg subcut [id number] 07/06/21 12/04/23 syringe (Prolia) simvastatin 20 mg tablet 20 mg PO QHS 07/06/21 12/04/23 aspirin 81 mg tablet,delayed 81 mg PO DAILY 07/12/23 12/04/23 release (Adult Aspirin Regimen) esomeprazole magnesium 40 mg 40 mg PO EVERY OTHER DAY PRN GERD 12/04/23 12/04/23 capsule,delayed release fluticasone propionate 50 1 spray intranasal QHS PRN 12/04/23 12/04/23 mcg/actuation nasal congestion spray,suspension (Allergy Relief (fluticasone)) Allergies Allergy/AdvReac Type Severity Reaction Status Date / Time No Known Allergies Allergy Unknown Verified 12/04/23 15:17 Review of Systems Review of Systems: All systems reviewed & are unremarkable except as noted in HPI and below PMFSH Past Medical History Medical History Acquired left foot drop Anemia CAD in [place] artery Chronic low back pain Chronic systolic (congestive) heart failure Chronic venous insufficiency of lower extremity CKD (chronic kidney disease) stage 3, GFR 30-59 ml/min Conjunctivitis, right eye Dilated cardiomyopathy Dyslipidemia, goal LDL below 100 Environmental allergies Essential (primary) hypertension Fracture of right ankle, lateral malleolus 03/21/2001 Gout attack (~07/2023) History of prostate cancer Hypogonadism in male Osteoporosis Pancytopenia Prediabetes Spinal stenosis 06/2015 Surgical History Surgical History H/O lumbar discectomy L4-5 2001 History of back surgery (~08/2023) Bilateral L2-3, L3-4 Minimally Invasive Lumbar Decompression with Fluoroscopy. History of cholecystectomy 2007 History of hemilaminectomy L3-4 07/09/2016 History of prostatectomy 2003 History of surgery of head SCC of scalp excision 05/2020 Hx of CABG 1993 Hx of lumbosacral spine surgery 2001 and 2015 Family History Family History (Updated 12/04/23 @ 15:34 by Maxim Cee RN) Mother Lupus Son No problems noted. Sibling Lymphoma Social History Social History Smoking status: Never smoker Second hand tobacco smoke exposure: No Alcohol intake: current Drinks per week: 1 Alcohol use details: 2 beers consumed weekly Substance use: never Substance use type: does not use Do You Feel Safe in your Home?: Yes Lack of Transportation: No Lack of Food: Never True Current Housing: I Have Housing Concerned About Future Housing: No Difficulty Paying Gas/Electric Bills: No Difficulty Paying for Meds: No Currently Unemployed: No Education: High School Diploma/GED Difficulty w/ Childcare or Family Care: No Living arrangements: with family Additional living arrangements comments: Occupation/Education: retired Gender identity (if verbalized by the patient): Male Spiritual care concerns: No Exam Narrative: APPEARANCE: Ill-appearing HEAD: normocephalic, atraumatic. EYES: PER
[2023-12-04] MEDS: SODIUM CHLORIDE 0.9% IV 1,000 ML 999 ML IV CONT (09:43)
[2023-12-04 10:13] LABS: Influenza A QL RT-PCR Negative (Negative); Influenza B QL RT-PCR Negative (Negative); RSV RNA, RT-PCR Negative (Negative); SARS-CoV-2 RNA PCR Negative (Negative)
[2023-12-04 11:48] LABS: Appearance Urine Cloudy (Clear); Bacteria Urine Rare /hpf; Bilirubin Urine Negative (Negative); Blood Urine Negative (Negative); Color Urine Dark Yellow (Yellow); Glucose Urine UA Negative (Negative); Ketones Urine Trace mg/dL (Negative); Leukocyte Esterase Ur 3+ LEU/UL (Negative); Need Manual Microscopic Reviewed; Nitrate Urine Negative (Negative); Protein Urine 1+ mg/dL (Negative); RBC Urine 0-2 /hpf (0-2); Specific Grav Ur 1.014 (1.001-1.035); Squamous Epithelial Cell Urine None seen /hpf (Few); WBC Urine >100 /hpf
[2023-12-04 11:51] LABS: Add Urine Microscopic? YES
--- NOTE | 2023-12-04 15:28 | ADMGEN ---
This patient, Leobardo Torres, was admitted to [facility] Surg Room 331-01. Patient/family oriented to hospital policies and general routines including ID bracelet, bed and alarms, visiting hours, pain management, procedures, bathroom and other care routines, personal items, smoking policy, room service/diet, and visiting hours. Information on how to activate the Rapid Response Team has been discussed. Patient/Family are encouraged to report perceived risks to care and to ask questions if they do not understand what they are told or what they should do.
--- NOTE | 2023-12-04 16:00 | PC.NURSE ---
On 12/04/23, the SUPERVISOR LIQUEFACTION, Jessica Quiles provided care and completed [employer] documentation on this patient. I have reviewed the SUPERVISOR LIQUEFACTION's documentation and agree with the findings.
--- NOTE | 2023-12-04 18:10 | PC.NURSE ---
On 12/04/23, the CAR REPAIRMAN, Jessica Quiles, provided care and completed [employer] documentation on this patient. I have reviewed the CAR REPAIRMAN's documentation and agree with the findings.
[2023-12-04 20:12] LABS: Anion Gap 8 mmol/L (8-16); Blood Urea Nitrogen 44 mg/dL (9-20); Calcium 7.8 mg/dL (8.4-10.2); Carbon Dioxide 28 mmol/L (22-30); Chloride 99 mmol/L (98-107); Estimated CRCL calculation 25 ml/min; Estimated Glomerular Filt Rate 34; Glucose 153 mg/dL (65-110); Magnesium 1.8 mg/dL (1.6-2.3); Sodium 135 mmol/L (137-145)
--- NOTE | 2023-12-04 20:40 | PM.IMHP ---
H&P: HPI History of Present Illness Date/Time: 12/04/23 18:00 Chief Complaint: Weakness. Narrative: This is a very pleasant 88-year-old gentleman with history of coronary artery disease status post bypass, heart failure with reduced ejection fraction, hypertension, dyslipidemia, chronic kidney disease, and other comorbidities who presented to the emergency department via private vehicle from home for evaluation of weakness. Just after the 1st of the year he developed cold symptoms to include cough, postnasal drip, runny nose, and generalized malaise. He tested negative for COVID and influenza and was treated symptomatically. He continues to have symptoms but they are improving. Unfortunately his appetite has not improved and he has not had good oral intake for couple of weeks. He does not necessarily have nausea and denies vomiting. He does have a couple of loose stools a day but not in significant quantities. Overall he is just feeling increasingly more weak leading him to come to the ER today. He denies fever, chills, sweats, focal weakness, paresthesias, lightheadedness, syncope, near syncope, chest pain, pleuritic pain, shortness a breath, vomiting, and dysuria. He was afebrile on arrival to the ED with blood pressures running at the lower end of normal. His labs were significant for WBC count of 12.3, hemoglobin 11.4, sodium 134, potassium 3.1, chloride 95, BUN 49, creatinine 2.10, albumin 3.3, total protein 7.0. Urine was cloudy with trace ketones, 3+ leukocyte esterase, greater than 100 wbc's, and rare bacteria. He tested negative for influenza, RSV, and COVID. Chest x-ray showed right basilar atelectasis. In the ED he received a L of normal saline and 1 g ceftriaxone and he is being admitted in this setting for further hydration given acute on chronic kidney injury. Review of Systems Review of Systems: Twelve systems were reviewed and are negative except for as per HPI. [facility] Past Medical History Medical History Acquired left foot drop Anemia CAD in [place] artery Chronic low back pain Chronic systolic (congestive) heart failure Chronic venous insufficiency of lower extremity CKD (chronic kidney disease) stage 3, GFR 30-59 ml/min Conjunctivitis, right eye Dilated cardiomyopathy Dyslipidemia, goal LDL below 100 Environmental allergies Essential (primary) hypertension Fracture of right ankle, lateral malleolus 03/21/2001 Gout attack (~07/2023) History of prostate cancer Hypogonadism in male Osteoporosis Pancytopenia Prediabetes Spinal stenosis 06/2015 Surgical History Surgical History H/O lumbar discectomy L4-5 2001 History of back surgery (~08/2023) Bilateral L2-3, L3-4 Minimally Invasive Lumbar Decompression with Fluoroscopy. History of cholecystectomy 2008 History of hemilaminectomy L3-4 07/09/2016 History of prostatectomy 2004 History of surgery of head SCC of scalp excision 05/2020 Hx of CABG 1993 Hx of lumbosacral spine surgery 2001 and 2015 Family History Family History Mother Lupus Son No problems noted. Sibling Lymphoma Social History Social History (Updated 12/04/23 @ 20:48 by Pastora Arzola PA-C) Social History: Surrogate medical decision maker: Seemaphan Torres, spouse. Code status: Full code. Smoking status: Never smoker Second hand tobacco smoke exposure: No Alcohol intake: current Drinks per week: 1 Alcohol use details: 2 beers consumed weekly Substance use: never Substance use type: does not use Do You Feel Safe in your Home?: Yes Lack of Transportation: No Lack of Food: Never True Current Housing: I Have Housing Concerned About Future Housing: No Difficulty Paying Gas/Electric Bills: No Difficulty Paying for Meds: No Currently Unemployed: No Education: High School
[2023-12-04] MEDS: ACETAMINOPHEN 325 MG TABLET 650 MG PO (21:18)
[2023-12-04] MEDS: SIMVASTATIN 20 MG TABLET PO (21:18)
[2023-12-04] MEDS: carvediloL 12.5 MG TABLET 37.5 MG PO (21:18)
[2023-12-04] MEDS: POTASSIUM CHLORIDE 20 MEQ ER TABLET 40 MEQ PO (21:19)
[2023-12-04] MEDS: SODIUM CHLORIDE 0.9% IV 1,000 ML 100 ML IV CONT (21:19)
[2023-12-05 05:51] VITALS: BP 110/61; PULSE 71; RESP 18; TEMP 36.7; O2SAT 97
[2023-12-05 06:03] LABS: Hematocrit 33.4 % (42.0-52.0); Hemoglobin 10.8 g/dL (14.0-18.0); Mean Corpuscular HGB Conc 32.3 g/dl (32-36); Mean Corpuscular Hemoglobin 30.5 pg (26-34); Mean Corpuscular Volume 94.4 fl (80-100); Mean Platelet Volume 9.8 fl (7.4-10.4); Platelet Count Result 156 k/mm3 (150-375); Red Blood Count 3.54 M/mm3 (4.6-6.20); Red Cell Distribution Width 13.2 % (11.5-14.5); White Blood Count 8.1 K/mm3 (4.5-10.0)
[2023-12-05 06:14] LABS: Anion Gap 4 mmol/L (8-16); Blood Urea Nitrogen 38 mg/dL (9-20); Calcium 7.6 mg/dL (8.4-10.2); Carbon Dioxide 32 mmol/L (22-30); Chloride 102 mmol/L (98-107); Estimated CRCL calculation 28 ml/min; Estimated Glomerular Filt Rate 38; Glucose 128 mg/dL (65-110); Magnesium 1.8 mg/dL (1.6-2.3); Potassium 3.3 mmol/L (3.4-5.0); Sodium 138 mmol/L (137-145)
[2023-12-05 06:46] LABS: Hemoglobin A1C 5.9 % (<5.7)
[2023-12-05] MEDS: ENOXAPARIN 30 MG/0.3 ML SYRINGE SUB-Q (09:52)
[2023-12-05] MEDS: ASPIRIN 81 MG ENTERIC TABLET PO (09:53)
[2023-12-05 09:54] VITALS: PULSE 72
[2023-12-05] MEDS: carvediloL 12.5 MG TABLET 37.5 MG PO ×2 (09:54→21:37)
[2023-12-05 10:42] VITALS: O2SAT 96
[2023-12-05 13:36] VITALS: BMI 24.5
[2023-12-05 14:00] VITALS: BP 125/49; PULSE 71; RESP 18; TEMP 36.8; O2SAT 97
--- NOTE | 2023-12-05 15:46 | PM.IMPN ---
Progress Note: A&P Assessment and Plan (1) Generalized weakness: Code(s): R53.1 - Weakness Status: Acute Assessment and Plan: Alteration of gait and mobility due to weakness and current dx of foot drop that is pre-existing. PT and OT evaluations ordered. Interval improvement according to pt and Care coordination does not expect any needs at discharge. Fall Precautions. (2) Acute on chronic kidney failure: Code(s): N17.9 - Acute kidney failure, unspecified; N18.9 - Chronic kidney disease, unspecified Status: Acute Assessment and Plan: Interval improvement trend: 2.10-->1.90-->1.70 with known baseline of 1.4-1.7. Continue IVF hydration with NS at 60 ml/hr for continued hydration overnight. Monitor daily labs for trend. (3) Hypokalemia: Code(s): E87.6 - Hypokalemia Status: Acute Assessment and Plan: Potassium this AM increased to 3.3. Continue supplemental potassium as ordered. Encourage dietary supplementation upon discharge. (4) Abnormal urinalysis: Code(s): R82.90 - Unspecified abnormal findings in urine Status: Acute Assessment and Plan: Concerning for possible UTI. Urine culture is pending. Continue Rocephin empirically. Monitor labs and VS. Not currently meeting Sepsis criteria. (5) Congestive heart failure: Code(s): I50.9 - Heart failure, unspecified Status: Chronic Assessment and Plan: Pt appears euvolemic. Last ECHO was 05/2020 and it showed an EF of 32% with no mention of diastolic function. It pt's overall appearance changes to reflect volume overload, consider checking ECHO again. Daily weight Accurate I&O (6) Hypertension: Code(s): I10 - Essential (primary) hypertension Status: Chronic Assessment and Plan: Continue Carvedilol Monitor VS trend Time Spent With Patient Time with patient: 25 - 35 minutes Subjective Date/time seen: 12/05/23 1030 Interval history: This pt was examined at the bedside in interval assessment after presenting to the ER with weakness and was subsequently admitted to the hospital for EDER, Abnormal UA suggestive of UTI, and a low potassium. Overnight he reports interval improvement and states he feels much better. He has no acute complaints at this time. 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 He has had interval improvement in his overall renal function as compared to when he admitted. He does not appear to be in any acute distress at this time. Review of Systems Review of Systems: All systems reviewed & are unremarkable except as noted in HPI and below Exam Narrative: General: Mildly ill-appearing gentleman sitting up in bed in good spirits and without any signs of acute distress. HEENT: PERRL, EOMI. normocephalic and atraumatic Neck: Supple. No JVD and FROM Respiratory: Lungs are clear to auscultation bilaterally. Cardiovascular: Regular rate and rhythm with S1-S2. No peripheral edema noted. No JVD. Gastrointestinal: Abdomen is soft, nontender, and nondistended with positive bowel sounds. Skin: Warm and dry. No rash or lesions on limited exam. Extremities: No cyanosis, clubbing, or significant edema. Radial and pedal pulses intact. Neurological: Alert. No focal deficits with exception of known left foot drop. Psychiatric: Pleasant and cooperative with normal mood and affect. Judgment and insight intact. Objective Data Vital Signs Vital Signs: Vital Signs - 24 hr 12/04/23 20:25 12/04/23 20:00 12/05/23 05:51 Temperature 97.8 F 98.1 F Pulse Rate 78 78 71 Respiratory Rate 20 20 18 Blood Pressure 119/65 110/61 Pulse Oximetry 94 94 97 Oxygen Delivery Room Air 12/05/23 09:54 12/05/23 10:42 12/05/23 14:00 Temperature 98.2 F Pulse Rate 72 71 Respiratory Rate 18 Blo
[2023-12-05] MEDS: SODIUM CHLORIDE 0.9% IV 1,000 ML 60 ML IV CONT (18:53)
[2023-12-05 20:00] VITALS: PULSE 73; RESP 16; O2SAT 96
[2023-12-05 21:23] VITALS: BP 103/40; PULSE 76; RESP 16; TEMP 37.1; O2SAT 97
[2023-12-05] MEDS: ACETAMINOPHEN 325 MG TABLET 650 MG PO (21:38)
[2023-12-05] MEDS: SIMVASTATIN 20 MG TABLET PO (21:38)
[2023-12-06] MEDS: POTASSIUM CHLORIDE 20 MEQ ER TABLET 40 MEQ PO (05:22)
[2023-12-06] MEDS: SODIUM CHLORIDE 0.9% IV 1,000 ML 60 ML IV CONT (05:22)
[2023-12-06 05:46] VITALS: BP 117/48; PULSE 64; RESP 16; TEMP 36.2; O2SAT 96
[2023-12-06 06:17] LABS: Basophils Percent Auto 0.3 % (0.2-1.2); Eosinophils Absolute Auto 0.1 K/mm3 (0-0.3); Eosinophils Percent Auto 1.1 % (0-4.4); Hematocrit 32.1 % (42.0-52.0); Hemoglobin 10.5 g/dL (14.0-18.0); Immature Granulocyte Absolute 0.04 K/mm3 (0.00-0.031); Immature Granulocyte Percent A 0.6 % (0-0.5); Lymphocytes Absolute Auto 1.37 K/mm3 (0.9-3.2); Mean Corpuscular HGB Conc 32.7 g/dl (32-36); Mean Corpuscular Hemoglobin 30.9 pg (26-34); Mean Corpuscular Volume 94.4 fl (80-100); Mean Platelet Volume 9.8 fl (7.4-10.4); Monocytes Absolute Auto 0.6 K/mm3 (0.1-0.6); Monocytes Percent Auto 10.1 % (2.6-8.5); Neutrophils Absolute Auto 4.1 K/mm3 (1.3-6.7); Neutrophils Percent Auto 65.9 % (45.5-73.1); Platelet Count Result 183 k/mm3 (150-375); Red Cell Distribution Width 13.1 % (11.5-14.5); White Blood Count 6.2 K/mm3 (4.5-10.0)
[2023-12-06 06:36] LABS: Alanine Aminotransferase 26 U/L (6-50); Albumin Level 2.8 g/dL (3.5-5.1); Alkaline Phosphatase 82 U/L (38-126); Anion Gap 5 mmol/L (8-16); Aspartate Amino Transferase 30 U/L (17-59); Bilirubin,Total 0.6 mg/dL (0.2-1.3); Blood Urea Nitrogen 30 mg/dL (9-20); Calcium 7.5 mg/dL (8.4-10.2); Carbon Dioxide 29 mmol/L (22-30); Chloride 101 mmol/L (98-107); Estimated CRCL calculation 166 ml/min; Estimated Glomerular Filt Rate 48; Glucose 132 mg/dL (65-110); Magnesium 1.7 mg/dL (1.6-2.3); Potassium 3.3 mmol/L (3.4-5.0); Sodium 135 mmol/L (137-145)
[2023-12-06 08:00] VITALS: BP 130/52; PULSE 64; PULSE 69; RESP 16; RESP 18; TEMP 36.5; O2SAT 96; O2SAT 97
[2023-12-06] MEDS: carvediloL 12.5 MG TABLET 37.5 MG PO (08:47)
[2023-12-06] MEDS: ENOXAPARIN 30 MG/0.3 ML SYRINGE SUB-Q (08:47)
[2023-12-06] MEDS: ASPIRIN 81 MG ENTERIC TABLET PO (08:47)
--- NOTE | 2023-12-06 09:04 | P.DS_ITS ---
DS: Admitting Diagnosis Discharge Date 12/06/2023 Admitting Diagnosis EDER, Hypokalemia, UTI, CHF, HTN DS: Discharge Diagnosis Discharge Diagnosis (1) Generalized weakness: Code(s): R53.1 - Weakness Status: Resolved Assessment and Plan: * Alteration of gait and mobility due to weakness and current dx of foot drop that is pre-existing. * PT and OT evaluations ordered. * Interval improvement according to pt and Care coordination does not expect any needs at discharge. * Fall Precautions. * 12/06/23, Discharge date, pt was evaluated by therapies who state he is CGA, and is stable. It is recommended for skilled as outpatient however, pt is leaving next week for [place] and is not going to cancel his trip. He believes he is at his normal level of functioning. (2) Acute on chronic kidney failure: Code(s): N17.9 - Acute kidney failure, unspecified; N18.9 - Chronic kidney disease, unspecified Status: Resolved Assessment and Plan: * Interval improvement trend: 2.10-->1.90-->1.70 with known baseline of 1.4-1.7. * Continue IVF hydration with NS at 60 ml/hr for continued hydration overnight. * Monitor daily labs for trend. * 12/06/23. Discharge Date, resolved with Cr this AM of 1.4 (3) Hypokalemia: Code(s): E87.6 - Hypokalemia Status: Acute Assessment and Plan: * Potassium this AM increased to 3.3. * Continue supplemental potassium as ordered. * Encourage dietary supplementation upon discharge. * 12/06/23, discharge date, stable potassium at 3.3. (4) Abnormal urinalysis: Code(s): R82.90 - Unspecified abnormal findings in urine Status: Acute Assessment and Plan: * Concerning for possible UTI. * Urine culture is pending. * Continue Rocephin empirically. * Monitor labs and VS. * Not currently meeting Sepsis criteria. * 12/06/23, Discharge date, Urine culture grew out Gram negative Bacilli. Suspect E.coli. Pt has had interval improvement with Beta Lactam abx and will be placed on one for discharge. (5) Congestive heart failure: Code(s): I50.9 - Heart failure, unspecified Status: Chronic Assessment and Plan: * Pt appears euvolemic. * Last ECHO was 05/2020 and it showed an EF of 32% with no mention of diastolic function. * It pt's overall appearance changes to reflect volume overload, consider checking ECHO again. * Daily weight * Accurate I&O * 12/06/23, Discharge date, Stable and pt appears Euvolemic. (6) Hypertension: Code(s): I10 - Essential (primary) hypertension Status: Chronic Assessment and Plan: * Continue Carvedilol * Monitor VS trend * 12/06/23, Discharge date, BP's have remained stable during his hospital course. DS: Summary Hospital Course Reason for hospitalization: IVF hydration for EDER, Abx treatment of UTI, and evaluation of overall generalized weakness for safety. Hospital Course: This pt was admitted to the hospital for EDER, Abnormal UA suggestive of UTI, and a low potassium. He has had interval improvement during the course of his stay and states he feels much better overall with less weakness and increased tolerance. He has no acute complaints at this time. 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 EDER is now resolved. Electrolytes are stable, VSS, and pt is prepared for discharge with an overall favorable hospital course. Pt is a
--- NOTE | 2023-12-06 09:04 | PM.DS ---
DS: Admitting Diagnosis Discharge Date 12/06/2023 Admitting Diagnosis EDER, Hypokalemia, UTI, CHF, HTN DS: Discharge Diagnosis Discharge Diagnosis (1) Generalized weakness: Code(s): R53.1 - Weakness Status: Resolved Assessment and Plan: Alteration of gait and mobility due to weakness and current dx of foot drop that is pre-existing. PT and OT evaluations ordered. Interval improvement according to pt and Care coordination does not expect any needs at discharge. Fall Precautions. 12/06/23, Discharge date, pt was evaluated by therapies who state he is CGA, and is stable. It is recommended for skilled as outpatient however, pt is leaving next week for [place] and is not going to cancel his trip. He believes he is at his normal level of functioning. (2) Acute on chronic kidney failure: Code(s): N17.9 - Acute kidney failure, unspecified; N18.9 - Chronic kidney disease, unspecified Status: Resolved Assessment and Plan: Interval improvement trend: 2.10-->1.90-->1.70 with known baseline of 1.4-1.7. Continue IVF hydration with NS at 60 ml/hr for continued hydration overnight. Monitor daily labs for trend. 12/06/23. Discharge Date, resolved with Cr this AM of 1.4 (3) Hypokalemia: Code(s): E87.6 - Hypokalemia Status: Acute Assessment and Plan: Potassium this AM increased to 3.3. Continue supplemental potassium as ordered. Encourage dietary supplementation upon discharge. 12/06/23, discharge date, stable potassium at 3.3. (4) Abnormal urinalysis: Code(s): R82.90 - Unspecified abnormal findings in urine Status: Acute Assessment and Plan: Concerning for possible UTI. Urine culture is pending. Continue Rocephin empirically. Monitor labs and VS. Not currently meeting Sepsis criteria. 12/06/23, Discharge date, Urine culture grew out Gram negative Bacilli. Suspect E.coli. Pt has had interval improvement with Beta Lactam abx and will be placed on one for discharge. (5) Congestive heart failure: Code(s): I50.9 - Heart failure, unspecified Status: Chronic Assessment and Plan: Pt appears euvolemic. Last ECHO was 05/2020 and it showed an EF of 32% with no mention of diastolic function. It pt's overall appearance changes to reflect volume overload, consider checking ECHO again. Daily weight Accurate I&O 12/06/23, Discharge date, Stable and pt appears Euvolemic. (6) Hypertension: Code(s): I10 - Essential (primary) hypertension Status: Chronic Assessment and Plan: Continue Carvedilol Monitor VS trend 12/06/23, Discharge date, BP's have remained stable during his hospital course. DS: Summary Hospital Course Reason for hospitalization: IVF hydration for EDER, Abx treatment of UTI, and evaluation of overall generalized weakness for safety. Hospital Course: This pt was admitted to the hospital for EDER, Abnormal UA suggestive of UTI, and a low potassium. He has had interval improvement during the course of his stay and states he feels much better overall with less weakness and increased tolerance. He has no acute complaints at this time. 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 EDER is now resolved. Electrolytes are stable, VSS, and pt is prepared for discharge with an overall favorable hospital course. Pt is agreeable with this POC and verbalizes understanding and all questions are answered to his satisfaction. Status at Discharge Cognitive/behavioral status at discharge: At baseline Functional status at discharge: uses cane/walker Overall status at discharge: patient is back to baseline Time Spent with Patient Time attestation: Total time spent providing and/or coordinating discharge services: Time spent: Greater than 30 minutes Specific discharge activities: Follow up direct
[2023-12-06 09:59] VITALS: BP 126/48; PULSE 72; RESP 18; TEMP 36.5; O2SAT 98
[2023-12-06 10:00] VITALS: BP 118/41; PULSE 74; RESP 18; TEMP 36.5; O2SAT 99
== END 2023-12-06 12:02 | disposition home or self-care (01) ==
LOC: ANHED 08:48 → ANH3MEDSUR 14:57
PROVIDERS: Physician Assistant; Admitting Provider Family Medicine; Emergency Provider Emergency Medicine; PCP Family Medicine; Visit Provider Nurse Practitioner Adult Health
DX: N17.9 Acute kidney failure, unspecified (principal); R82.90 Unspecified abnormal findings in urine; E87.6 Hypokalemia; I13.0 Hypertensive heart and chronic kidney disease with heart failure and stage 1 through stage 4 chronic kidney disease, or unspecified chronic kidney disease; R73.9 Hyperglycemia, unspecified; R53.1 Weakness; I25.10 Atherosclerotic heart disease of native coronary artery without angina pectoris; D64.9 Anemia, unspecified; I50.22 Chronic systolic (congestive) heart failure; I42.0 Dilated cardiomyopathy; N18.30 Chronic kidney disease, stage 3 unspecified; E78.5 Hyperlipidemia, unspecified; M81.0 Age-related osteoporosis without current pathological fracture; Z20.822 Contact with and (suspected) exposure to COVID-19; Z85.46 Personal history of malignant neoplasm of prostate; Z79.82 Long term (current) use of aspirin; Z95.1 Presence of aortocoronary bypass graft
CPT/HCPCS: 36415; 71046; 80048; 80053; 81001; 83036; 83735; 84443; 85025; 85027; 87077; 87086; 87186; 87637; 93005; 96361; 96365; 96372; 96376; 97161; 97165; 99285; A9270; G0378; J0696; J1650; J7030

== ENCOUNTER → 2024-01-13 15:00 | Outpatient (CLI) | payer MEDICARE, SELFPAY ==
--- NOTE | ~2024-01-13 | XR_ITS ---
EXAMINATION: XR ankle LT min 3V DATE: 01/13/2024 15:18 INDICATION: Pain in left ankle and joints of left foot. TECHNIQUE: 5 views of left ankle were obtained. COMPARISON: None. FINDINGS: Bone alignment is normal. No fracture. There is an osteochondral lesion of medial talar dom e. There is an enthesophyte at plantar aspect of calcaneal tuberosity. Ankle soft tissue swelling is noted. There are surgical clips in the medial soft tissues. IMPRESSION: 1. Osteochondral lesion of medial talar dome. Reviewed, dictated and finalized at location E. IAL EFFECTS DESIGNER
== END ==
PROVIDERS: PCP Family Medicine; Visit Provider Family Medicine
DX: M25.472 Effusion, left ankle (principal); M25.572 Pain in left ankle and joints of left foot
CPT/HCPCS: 73610

== ENCOUNTER 2024-03-04 15:22 | Outpatient (CLI) | payer MEDICARE, SELFPAY ==
--- NOTE | ~2024-03-04 | MR_ITS ---
EXAMINATION: MR lumbar spine wo con DATE: 03/04/2024 16:09 INDICATION: Low back pain radiating down the left leg. TECHNIQUE: Magnetic resonance imaging (MRI) of the lumbar spine was performed without intravenous con trast. Sequences included sagittal T2-weighted FSE, sagittal T2-weighted FS FSE, sagittal T1-weighted FSE, and axial T2-weighted FSE. COMPARISON: Lumbar spine MRI 03/19/23 FINDINGS: There is 9 degrees dextrocurvature of lumbar spine. There is 3 mm anterolisthesis of L3 on L4. Vertebral body heights are normal. There is mildly decreased disc height at L2-L3 and severely de creased disc height from L3 through L4 through L5-S1. The distal spinal cord signal intensity is norm al. The conus medullaris is at T12-L1. The following disc levels are specifically discussed: L1-L2: The disc is mildly bulging. There is severe bilateral facet joint osteoarthritis. There is mil d bilateral neural foraminal stenosis. There is mild central canal stenosis. L2-L3: The disc is bulging. There is severe bilateral facet joint osteoarthritis. There is an 8 mm sy novial cyst from left facet joint. There is mild right and moderate left neural foraminal stenosis. T here is moderate central canal stenosis. L3-L4: The disc is bulging and has an annular fissure. There is severe bilateral facet joint osteoart hritis. There is moderate bilateral neural foraminal stenosis. There is mild central canal stenosis. There is severe stenosis of left lateral recess. L4-L5: The disc is bulging and has an annular fissure. There is severe right facet joint osteoarthrit is. There is mild left facet joint hypertrophy. There is moderate right and severe left neural forami nal stenosis. There is mild central canal stenosis with posterior decompression. L5-S1: The disc is bulging. There is severe bilateral facet joint osteoarthritis. There is moderate b ilateral neural foraminal stenosis. There is mild central canal stenosis. IMPRESSION: 1. Severe lumbar spondylosis, stable from 03/19/23. Reviewed, dictated and finalized at location E.
== END 2024-03-04 15:23 ==
LOC: GOSHIMG 15:23
PROVIDERS: PCP Family Medicine; Visit Provider Family Medicine
DX: M96.1 Postlaminectomy syndrome, not elsewhere classified (principal); M47.896 Other spondylosis, lumbar region
CPT/HCPCS: 72148

== ENCOUNTER 2024-04-13 08:59 | Outpatient (CLI) | payer MEDICARE, SELFPAY ==
[2024-04-13 12:52] LABS: Hematocrit 36.2 % (42.0-52.0); Hemoglobin 11.8 g/dL (14.0-18.0); Mean Corpuscular HGB Conc 32.6 g/dl (32-36); Mean Corpuscular Hemoglobin 32.1 pg (26-34); Mean Corpuscular Volume 98.4 fl (80-100); Mean Platelet Volume 11.1 fl (7.4-10.4); Platelet Count Result 125 k/mm3 (150-375); Red Blood Count 3.68 M/mm3 (4.6-6.20); Red Cell Distribution Width 13.3 % (11.5-14.5); White Blood Count 5.2 K/mm3 (4.5-10.0)
[2024-04-13 13:12] LABS: Alanine Aminotransferase 21 U/L (6-50); Alkaline Phosphatase 49 U/L (38-126); Anion Gap 5 mmol/L (4-12); Aspartate Amino Transferase 31 U/L (17-59); Bilirubin,Total 0.6 mg/dL (0.2-1.3); Blood Urea Nitrogen 30 mg/dL (9-20); Calcium 9.3 mg/dL (8.4-10.2); Carbon Dioxide 30 mmol/L (22-30); Chloride 105 mmol/L (98-107); Cholesterol 113 mg/dL (0-200); Estimated Glomerular Filt Rate 44; Glucose 98 mg/dL (65-110); HDL Direct 37 mg/dL; Potassium 4.3 mmol/L (3.4-5.0); Sodium 140 mmol/L (137-145); Triglycerides 105 mg/dL (<150)
[2024-04-13 13:14] LABS: Creatinine Urine 60.5 mg/dL
[2024-04-13 13:18] LABS: MALB Creatinine Ratio < 9.9 mg/g (0-30); Microalbumin Urine Random < 6.0 mg/L (0-16.7)
[2024-04-13 13:25] LABS: LDL Cholesterol Direct 67 mg/dL
[2024-04-13 14:05] LABS: Vitamin D 25 Hydroxy 59.4 ng/mL
[2024-04-13 16:34] LABS: Hemoglobin A1C 5.2 % (<5.7)
== END 2024-04-13 09:00 | disposition home or self-care (01) ==
PROVIDERS: PCP Family Medicine; Visit Provider Nurse Practitioner
DX: Z00.00 Encounter for general adult medical examination without abnormal findings (principal); E55.9 Vitamin D deficiency, unspecified; I50.22 Chronic systolic (congestive) heart failure; R73.03 Prediabetes; N18.30 Chronic kidney disease, stage 3 unspecified
CPT/HCPCS: 36415; 80053; 80061; 82043; 82306; 83036; 85027; 85055

== ENCOUNTER 2024-05-13 09:05 | Outpatient (CLI) | payer MEDICARE, SELFPAY ==
--- NOTE | ~2024-05-13 | XR_ITS ---
EXAMINATION: XR barium swallow modified DATE: 05/13/2024 09:36 INDICATION: Dysphagia. TECHNIQUE: The patient was given barium-containing material of multiple consistencies to swallow by t he speech pathologist while I performed fluoroscopy. Fluoroscopy exposure time was 1.6 minutes. The n umber of fluoroscopy images saved to the PACS was 1. Dose-area product was 1.075 Gy-cm^2. FINDINGS: There is reduced laryngeal elevation, reduced laryngeal adduction, reduced tongue base retraction, re duced pharyngeal squeeze, vallecular residue, pyriform sinus residue, pharyngeal wall residue, and la ryngeal penetration. Aspiration would be expected. IMPRESSION: 1. Laryngeal penetration with all consistencies. 2. Please refer to the speech therapy report for recommendations. Reviewed, dictated and finalized at location A.
--- NOTE | 2024-05-13 11:32 | REHSTMBS ---
Assessment and note entered by Johanna Harmon, STATION MASTER Modified Barium Swallow Evaluation Feeding Type Recommended Oral Food Consistency Soft and Bite Size, Level Liquid Consistency Thin (0) Treatment Recommendations Effortful Swallow,Laryngeal Elevation Exerc, Jasbir Maneuver,Supraglottic Swallow,Tongue Base Exercise,Vocal Fold Adduction Exer ST Clinical Summary MODIFIED BARIUM SWALLOW STUDY This patient was seen for a Modified Barium Swallow study at the request of his physician. Patient reports he has had difficulty swallowing for four months, and describes it as a feeling that food is becoming stuck in his throat, including mashed potatoes, other soft foods, and pills. He then stated that if he takes a large sip of water, it also becomes stuck and he has to spit it out. Patient reported that he has to take very small sips in order to use the water to clear the pills. He did not necessarily indicate that the small sips of water help to clear the semi- solid material. Patient stated he hopes that an EGD procedure would stretch the throat and help foods and pills pass through the throat. Patient was viewed in the lateral position to the level of C5/C6. Patient exhibited the following disorders: Oral Stage: None. Pharyngeal Stage: Reduced laryngeal elevation contributing to trace to mild penetration on all consistencies and moderate residue in the pyriform sinuses (at the base of the throat) after each swallow. Reduced base of tongue retraction contributing to significant vallecular residue after each swallow. All swallows after the first presentation of 3 cc of thin were shown to have trace penetration, increased penetration on mildly thick liquids, all clearing with the swallows. Each presentation required multiple,spontaneous swallows, up to 4-5 swallows, to clear pharyngeal pooling as patient was able to feel the residue in the throat. Reduced laryngeal adduction contributing to risk for aspiration.
== END 2024-05-13 09:06 | disposition home or self-care (01) ==
PROVIDERS: PCP Family Medicine; Visit Provider Nurse Practitioner Family
DX: R13.10 Dysphagia, unspecified (principal)
CPT/HCPCS: 92611

== ENCOUNTER 2024-06-02 11:41 | Day surgery (SDC) | payer MEDICARE, SELFPAY ==
[2024-05-27 14:49] VITALS: BMI 25.8
--- NOTE | ~2024-06-02 | XR_ITS ---
EXAMINATION: XR fluoroscopy no charge DATE: 06/02/2024 12:35 CDT INDICATION: LEFT L3 SELECTIVE NERVE ROOT BLK . TECHNIQUE: 8 fluoroscopic images and a cine clips of the lumbar spine were obtained during left L3 se lective nerve root block, performed by Ger Torres MD. I was not present during the procedure. F luoroscopy exposure time was 29.5 seconds. Air Kerma 10.05 mGy. COMPARISON: None FINDINGS/IMPRESSION: Fluoroscopic documentation of left L3 selective nerve root block. Please refer to the operative note for complete procedural details . Reviewed, dictated and finalized at location K.
--- NOTE | 2024-06-02 06:14 | WPDHPUPDATE1 ---
History and Physical Update Update Date/Time: 06/02/24 06:14 History and Physical has been reviewed, including an updated exam of the patient. There are NO changes in the patient's condition. Risks, benefits, and alternatives have been discussed and questions answered. Patient agrees to proceed with procedure.
--- NOTE | 2024-06-02 06:14 | W.PM.PROC2 ---
Procedure Note - Detailed Date of Procedure 06/02/24 Pre-op Diagnosis Lumbar Radiculopathy Post-op Diagnosis Same Procedure Performed Left Lumbar Selective Nerve Root Block via Transforaminal Approach under Fluoroscopic Guidance and with Contrast Control at L3. Surgeon Ger Torres MD Anesthesia Local Description of Procedure INFORMED CONSENT: Risks, benefits and alternatives to the procedure were discussed in detail with the patient who expressed explicit understanding and consent to proceed. Patient was informed verbally and in written form regarding the risks associated with the procedure including the low risk of serious infection, bleeding/bruising, allergic reaction, nerve or organ injury, paralysis, procedural site pain or discomfort, worsening pain and/or mobility, failure to treat and/or disfigurement. The patient expressed explicit understanding and consent to proceed. All materials required for the procedure were available prior to procedure start. Site and side was marked prior to procedure and confirmed in the presence of the patient. PROCEDURE IN DETAIL: The patient was brought to the procedural suite and placed in the prone position. Patient was made comfortable with use of pillows under the head/chest, hips and ankles. Skin overlying the injection site was prepared broadly with ChloraPrep applicator and draped in a sterile manner. Aseptic technique was employed throughout. The endplates of the vertebral body at the site of interest were aligned in the AP view. Ipsilateral oblique angulation was utilized to better visualize the neuroforamen of interest. Local anesthesia was established by infiltration with approximately 5 mL of 2% lidocaine via a 1-1/2 inch 27-gauge needle. A 22-gauge 3.5 inch Ilsa (pencil point) spinal needle was advanced until the needle approached the 6 o'clock position on the pedicle just superior to the exiting nerve root. on the left at L3 -4. Lateral view was utilized to confirm appropriate position of the needle tip within the superior and posterior portion of the respective foramen. In an AP view, 1 mL of Omnipaque 300 contrast medium was injected after negative aspiration for CSF, blood or other bodily fluid, showing appropriate neurogram without evidence of intravascular or intrathecal spread of contrast. Digital subtraction imaging was used with an additional 1ml of the same contrast medium to confirm absence of intravascular contrast spread. A 1.5 mL solution of 0.5% preservative-free bupivacaine was injected after negative repeat aspiration. Appropriate spread of the injectate was confirmed with washout of previously injected contrast. No parasthesias were elicited. Needle was removed completely intact without difficulty. Images were saved and documented in the patient chart. Patient's skin was cleaned and sterile bandage applied. The patient tolerated the procedure well. The patient was transported to the recovery area in stable condition where they were observed for an appropriate amount of time prior to discharge, without evidence of complication. The patient was instructed to avoid excessive activity for the next 48 hours, including climbing and frequent use of stairs. Showers only for 48 hours. They were instructed not to drive or operate heavy machinery for 24 hours. They are to monitor for severe headaches, fevers, chills, night sweats, erythema/swelling at the site or any other signs of infection, bleeding/bruising, bowel or bladder changes as well as new pain, weakness or numbness in the upper or lower extremity. Should they notice these changes, they are instructed to call our office immediately or report directly to the nearest Emergency Department if no answer or if after posted office hours. COMPLICATIONS: None COMMENTS: None CONTRAST WASTED: 28 mL Omnipaque 300. Complications No immediate complications Condition Stable Disposition Same day [facility] - Charge Forward: Ricky
[2024-06-02 12:04] VITALS: BP 137/52; PULSE 56; RESP 16; TEMP 36.8; O2SAT 98
[2024-06-02 12:42] VITALS: BP 173/73; PULSE 60; RESP 16; O2SAT 98
[2024-06-02 12:49] VITALS: BP 174/81; PULSE 59; RESP 18; O2SAT 98
[2024-06-02] MEDS: LIDOCAINE HCL 1% PF INJ 5 ML VIAL XX (12:50)
[2024-06-02] MEDS: BUPivacaine HCL 0.5% 10 ML AMP 1.5 ML INFILTRATE (12:53)
[2024-06-02 12:55] VITALS: BP 144/65; PULSE 54; RESP 15; O2SAT 98
== END 2024-06-02 13:07 | disposition home or self-care (01) ==
PROVIDERS: PCP Family Medicine; Visit Provider Anesthesiology Pain Medicine
PROC: (CPT 64483; principal; 2024-06-02 12:45)
DX: M54.16 Radiculopathy, lumbar region (principal)
CPT/HCPCS: 64483; 99199

== ENCOUNTER 2024-06-24 13:26 | Outpatient (CLI) | payer MEDICARE, SELFPAY ==
--- NOTE | ~2024-06-24 | DEXA_ITS ---
Bone Density Report Name: BINTA NICOLE Age: 89 Sex: Male Ethnicity: White Date of : 1935 Indication: screening for osteoporosis; height loss; cancer; Referring Provider: MARIAM PARSON Study: Bone densitometry was performed. Exam Date: June 24, 2024 Accession number: [id number] Bone Density: Region BMD T-score Z-score Classification AP Spine(L1-L4) 1.548 4.2 5.5 Normal Femoral Neck (Left) 0.601 -2.4 -0.7 Osteopenia Total Hip (Left) 0.881 -1.0 0.3 Normal Femoral Neck (Right) 0.619 -2.3 -0.6 Osteopenia Total Hip (Right) 0.895 -0.9 0.3 Normal Total Hip Mean 0.888 -1.0 0.3 Normal World Health Organization criteria for BMD impression classify patients as: Normal (T-score at or above -1.0), Osteopenia (T-score between -1.0 and -2.5), or Osteoporosis (T-score at or below -2.5). 10-year Fracture Risk(1): Major Osteoporotic Fracture 9.0% Hip Fracture 4.1% Reported Risk Factors: [place] (), Neck BMD=0.601, BMI=26.9 (1) FRAX(R) Version 3.08. Fracture probability calculated for an untreated patient. Fracture probability may be lower if the patient has received treatment. Clinical Information Provided by Patient: Has used the following medications: Prolia (i.e. denosumab) Has the following medical conditions: Cancer Patient maximum height was 68.0 No regular weight bearing exercise Drinks caffeinated beverages Impression: The patient has low bone mass, based on the Left Femoral Neck T-score. The patient has an estimated ten-year risk of hip fracture of 4.1% and an estimated ten-year risk of major fracture of 9%, based on the WHO FRAX algorithm. Discussion: BONE DENSITY IS LOW AT ONE OR MORE SKELETAL SITES. THE PATIENT'S BMD AND CLINICAL RISK FACTORS CONTRIBUTE TO THIS PATIENT'S INCREASED RISK OF FRACTURE. This patient's lowest T-score is low at one or more skeletal sites. It meets the World Health Organization's (WHO) criteria for ?low bone mass? (T-score between -1.0 and -2.5). The patient's 10-year risk of hip fracture as calculated by FRAX exceeds the threshold where pharmacological therapy is recommended by the National Osteoporosis Foundation (NOF). However, all treatment decisions require clinical judgment and consideration of individual patient factors, including patient preferences, comorbidities, previous drug use, risk factors not captured in the FRAX model (e.g., frailty, falls, vitamin D deficiency, increased bone turnover, interval significant decline in bone density) and possible under or overestimation of fracture risk by FRAX. The patient should follow a healthful lifestyle (good nutrition with adequate calcium and vitamin D, and appropriate weight-bearing exercise). Follow-Up: Consider repeating this study in 2 years to reassess this patient's status
== END 2024-06-24 13:27 | disposition home or self-care (01) ==
PROVIDERS: PCP Family Medicine; Visit Provider Nurse Practitioner Family
DX: M81.0 Age-related osteoporosis without current pathological fracture (principal); M47.817 Spondylosis without myelopathy or radiculopathy, lumbosacral region; R29.6 Repeated falls; K21.9 Gastro-esophageal reflux disease without esophagitis; Z51.81 Encounter for therapeutic drug level monitoring; Z79.899 Other long term (current) drug therapy; M85.852 Other specified disorders of bone density and structure, left thigh; M85.851 Other specified disorders of bone density and structure, right thigh
CPT/HCPCS: 36415; 77080; 82040; 82310

== ENCOUNTER 2024-07-07 02:10 | Day surgery (SDC) | payer MEDICARE, SELFPAY ==
[2024-05-25 10:20] VITALS: BMI 25.9
--- NOTE | 2024-06-12 08:47 | SUR.PREOP ---
Patient called in this am reporting that his spouse tested positive to Covid. Patient was rescheduled to Jul 07 at 1500. Instructed patient that we would call him the week before his procedure to check on his status. Patient voiced understanding.
[2024-06-30 10:21] VITALS: BMI 25.9
[2024-07-07 14:08] VITALS: BP 142/66; PULSE 65; RESP 18; TEMP 36.3; O2SAT 65
[2024-07-07] MEDS: LACTATED RINGERS 1,000 ML 150 ML IV CONT (14:16)
--- NOTE | 2024-07-07 14:45 | PM.HPGS ---
History of Present Illness History of Present Illness Consent: Risks, benefits, and alternatives have been discussed and questions answered. Patient agrees to proceed with procedure. Chief complaint: Dysphagia Narrative: Leobardo Torres is a 89 year old male here for first EGD, h/o dysphagia. Review of Systems Review of Systems: All systems reviewed & are unremarkable except as noted in HPI and below PMFSH Past Medical History Medical History Acquired left foot drop Anemia CAD in [place] artery Chronic low back pain Chronic systolic (congestive) heart failure Chronic venous insufficiency of lower extremity CKD (chronic kidney disease) stage 3, GFR 30-59 ml/min Conjunctivitis, right eye Dilated cardiomyopathy Dyslipidemia, goal LDL below 100 Encounter for monitoring long-term proton pump inhibitor therapy Environmental allergies Essential (primary) hypertension Fracture of right ankle, lateral malleolus 03/21/2001 Generalized weakness Gout attack (~07/2023) History of prostate cancer Hypogonadism in male Osteoporosis Pancytopenia Prediabetes Spinal stenosis 06/2015 Surgical History Surgical History H/O lumbar discectomy L4-5 2001 History of back surgery (~08/2023) Bilateral L2-3, L3-4 Minimally Invasive Lumbar Decompression with Fluoroscopy. 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 Sibling Lymphoma Social History Social History Social History: Surrogate medical decision maker: Seema Torres, spouse. Code status: Full code. Smoking status: Never smoker Second hand tobacco smoke exposure: No Alcohol intake: current Drinks per week: 2 Alcohol use details: BEER Substance use: never Substance use type: does not use Do You Feel Safe in your Home?: Yes Lack of Transportation: No Lack of Food: Never True Current Housing: Decline to Answer Concerned About Future Housing: Decline to Answer Difficulty Paying Gas/Electric Bills: Decline to Answer Difficulty Paying for Meds: Decline to Answer Currently Unemployed: Decline to Answer Education: Decline to Answer Difficulty w/ Childcare or Family Care: Decline to Answer Living arrangements: with family Additional living arrangements comments: with sp Occupation/Education: retired Spiritual care concerns: No Meds Home Medications and Allergies Home Medications Medication Instructions Recorded Confirmed Type denosumab 60 mg/mL subcutaneous 60 mg subcut [id number] 07/06/21 07/07/24 History syringe (Prolia) aspirin 81 mg tablet,delayed 81 mg PO DAILY 07/12/23 07/07/24 History release (Adult Aspirin Regimen) amlodipine 5 mg tablet 5 mg PO DAILY #90 tabs 01/13/24 07/07/24 Rx calcium carbonate 600 mg PO BID 01/13/24 07/07/24 History carvedilol 25 mg tablet 37.5 mg PO Q12H #270 tabs 01/13/24 07/07/24 Rx cholecalciferol (vitamin D3) 50 50 mcg PO DAILY 01/13/24 07/07/24 History mcg (2,000 unit) capsule hydralazine 25 mg tablet 25 mg PO BID #180 tabs 01/13/24 07/07/24 Rx hydrochlorothiazide 12.5 mg tablet 12.5 mg PO DAILY #90 tabs 01/13/24 07/07/24 Rx AFO brace #1 ea 01/20/24 07/07/24 Rx fluticasone propionate 50 1 spray intranasal QHS PRN 04/09/24 07/07/24 Rx mcg/actuation nasal congestion #16 grams spray,suspension (Allergy Relief (fluticasone)) famotidine 40 mg tablet 40 mg PO DAILY #30 tabs 05/05/24 07/07/24 Rx ferrous sulfate 325 mg (65 mg 325 mg PO DAILY #90 tabs 06/15/24 07/07/24 Rx iron) tablet simvastatin 20 mg ta
[2024-07-07 14:56] VITALS: BP 108/52; PULSE 49; RESP 16; O2SAT 97
[2024-07-07 15:06] VITALS: BP 112/55; PULSE 55; RESP 16; O2SAT 96
[2024-07-07 15:16] VITALS: BP 125/56; PULSE 55; RESP 15; O2SAT 98
--- NOTE | 2024-07-17 14:57 | WPDANESEPPF ---
Anes - Initial Pre Proc Eval Procedure: Operation Date: 07/07/24 15:00 Proposed Procedures p Esophagogastroduodenoscopy - Dhaval Dumont MD Date/Time: 07/17/24 14:57 Surgeon: Dhaval Dumont MD Pre Op Diagnosis: Dysphagia Patient Data Age: 89 Gender: M Height: 1.73 m Weight: 76.1 kg Last Vital Signs Temp 97.3 F L 07/07/24 14:08 Pulse 55 L 07/07/24 15:16 Resp 15 07/07/24 15:16 BP 125/56 L 07/07/24 15:16 Pulse Ox 98 07/07/24 15:16 O2 Del Method Room Air 07/07/24 15:16 Allergies Allergy/AdvReac Type Severity Reaction Status Date / Time No Known Allergies Allergy Unknown Verified 06/30/24 10:19 Home Medications Medication Instructions Recorded Confirmed Type denosumab 60 mg/mL subcutaneous 60 mg subcut [id number] 07/06/21 07/07/24 History syringe (Prolia) aspirin 81 mg tablet,delayed 81 mg PO DAILY 07/12/23 07/07/24 History release (Adult Aspirin Regimen) amlodipine 5 mg tablet 5 mg PO DAILY #90 tabs 01/13/24 07/07/24 Rx calcium carbonate 600 mg PO BID 01/13/24 07/07/24 History carvedilol 25 mg tablet 37.5 mg PO Q12H #270 tabs 01/13/24 07/07/24 Rx cholecalciferol (vitamin D3) 50 50 mcg PO DAILY 01/13/24 07/07/24 History mcg (2,000 unit) capsule hydralazine 25 mg tablet 25 mg PO BID #180 tabs 01/13/24 07/07/24 Rx hydrochlorothiazide 12.5 mg tablet 12.5 mg PO DAILY #90 tabs 01/13/24 07/07/24 Rx AFO brace #1 ea 01/20/24 07/07/24 Rx fluticasone propionate 50 1 spray intranasal QHS PRN 04/09/24 07/07/24 Rx mcg/actuation nasal congestion #16 grams spray,suspension (Allergy Relief (fluticasone)) famotidine 40 mg tablet 40 mg PO DAILY #30 tabs 05/05/24 07/07/24 Rx ferrous sulfate 325 mg (65 mg 325 mg PO DAILY #90 tabs 06/15/24 07/07/24 Rx iron) tablet simvastatin 20 mg tablet 20 mg PO QHS #90 tabs 07/06/24 07/07/24 Rx Patient hx anesthesia problems: none Family hx anesthesia problems: none Results Review: All pre-operative results and documents have been reviewed as part of the pre-operative evaluation. [facility] Past Medical History Medical History Acquired left foot drop Anemia CAD in [place] artery Chronic low back pain Chronic systolic (congestive) heart failure Chronic venous insufficiency of lower extremity CKD (chronic kidney disease) stage 3, GFR 30-59 ml/min Conjunctivitis, right eye Dilated cardiomyopathy Dyslipidemia, goal LDL below 100 Encounter for monitoring long-term proton pump inhibitor therapy Environmental allergies Essential (primary) hypertension Fracture of right ankle, lateral malleolus 03/21/2001 Generalized weakness Gout attack (~07/2023) History of prostate cancer Hypogonadism in male Osteoporosis Pancytopenia Prediabetes Spinal stenosis 06/2015 Surgical History Surgical History H/O lumbar discectomy L4-5 2001 History of back surgery (~08/2023) Bilateral L2-3, L3-4 Minimally Invasive Lumbar Decompression with Fluoroscopy. 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 Sibling Lymphoma Social History Social History Social History: Surrogate medical decision maker: Seemaphna Torres, spouse. Code status: Full code. Smoking status: Never smoker Second hand tobacco smoke exposure: No Alcohol intake: current Drinks per week: 2 Alcohol use details: BEER Substance use: never Substance use type: does not use Do You Feel Safe in your Home?: Yes Lack of Transportation: No Lack of Food: Never True Current Hous
== END 2024-07-07 15:32 | disposition home or self-care (01) ==
PROVIDERS: PCP Family Medicine; Referring Provider Nurse Practitioner Family; Visit Provider Internal Medicine Gastroenterology
PROC: 0DJ08ZZ Inspection of Upper Intestinal Tract, Via Natural or Artificial Opening Endoscopic (ICD-10-PCS; CPT 43235; principal; 2024-07-07 15:00)
DX: K29.50 Unspecified chronic gastritis without bleeding (principal); R13.13 Dysphagia, pharyngeal phase; I25.10 Atherosclerotic heart disease of native coronary artery without angina pectoris; I50.22 Chronic systolic (congestive) heart failure; N18.30 Chronic kidney disease, stage 3 unspecified; E78.5 Hyperlipidemia, unspecified; I13.0 Hypertensive heart and chronic kidney disease with heart failure and stage 1 through stage 4 chronic kidney disease, or unspecified chronic kidney disease; M81.0 Age-related osteoporosis without current pathological fracture; Z95.1 Presence of aortocoronary bypass graft
CPT/HCPCS: 43239; 43450; 88305; J2001; J2704; J7120

== ENCOUNTER 2024-07-24 15:14 | Outpatient (NON) | payer MEDICARE, SELFPAY | END 2024-07-24 15:15 | disposition home or self-care (01) | LOC: ANHGOSHLAB 15:15 | PROVIDERS: PCP Family Medicine; Visit Provider Student in an Organized Health Care Education/Training Program | DX: R39.9 Unspecified symptoms and signs involving the genitourinary system (principal) | CPT/HCPCS: 87077; 87086; 87088; 87186 ==

== ENCOUNTER 2024-09-17 12:18 | Outpatient (CLI) | payer MEDICARE, SELFPAY ==
[2024-09-17 13:58] LABS: Hematocrit 37.3 % (42.0-52.0); Hemoglobin 12.2 g/dL (14.0-18.0); Immature Platelet Fraction Pct 6.5 % (0.9-11.2); Mean Corpuscular HGB Conc 32.7 g/dl (32-36); Mean Corpuscular Hemoglobin 32.1 pg (26-34); Mean Corpuscular Volume 98.2 fl (80-100); Mean Platelet Volume 11.3 fl (7.4-10.4); Platelet Count Result 123 k/mm3 (150-375); White Blood Count 5.6 K/mm3 (4.5-10.0)
[2024-09-17 14:02] LABS: Add Urine Microscopic? NO; Appearance Urine Clear (Clear); Bilirubin Urine Negative (Negative); Blood Urine Negative (Negative); Color Urine Yellow (Yellow); Glucose Urine UA Negative (Negative); Ketones Urine Negative (Negative); Leukocyte Esterase Ur Negative LEU/UL (Negative); Nitrate Urine Negative (Negative); Protein Urine Negative (Negative); Specific Grav Ur 1.016 (1.001-1.035); Urobilinogen Urine 0.2 mg/dL (<2.0)
[2024-09-17 14:05] LABS: Anion Gap 7 mmol/L (4-12); Blood Urea Nitrogen 36 mg/dL (9-20); Calcium 9.1 mg/dL (8.4-10.2); Carbon Dioxide 30 mmol/L (22-30); Chloride 102 mmol/L (98-107); Estimated Glomerular Filt Rate 36; Glucose 98 mg/dL (65-110); Potassium 4.1 mmol/L (3.4-5.0); Sodium 139 mmol/L (137-145)
[2024-09-17 14:09] LABS: Partial Thromboplastin Time 29.2 Seconds (22.3-36.8); Prothrombin Time 13.6 Seconds (11.1-14.7)
== END 2024-09-17 12:19 | disposition home or self-care (01) ==
LOC: ANHSURGERY 12:22
PROVIDERS: PCP Family Medicine; Visit Provider Neurological Surgery
DX: M51.26 Other intervertebral disc displacement, lumbar region (principal); Z01.818 Encounter for other preprocedural examination
CPT/HCPCS: 36415; 80048; 81003; 85027; 85055; 85610; 85730

== ENCOUNTER 2024-09-22 02:58 | Day surgery (SDC) | payer MEDICARE, SELFPAY ==
[2024-09-11 08:38] VITALS: BMI 26.2
--- NOTE | 2024-09-11 08:38 | PC.NURSE ---
Report to the Outpatient Waiting Room, entrance under the green pavilion located off [facility], at time 1100am___on date _09/22/24 . Planned Procedure Time: __1:00pm .? Time changes happen often and if your time is changed the preop area will call you the afternoon before. - You and your visitor will be asked to self-screen and do not enter if you have any COVID symptoms. Please call surgeon if you need to reschedule. - A mask is optional within the hospital at this time. Patients may have clear liquids (water, carbonated beverages, clear teas, apple juice) until 3 hours prior to surgery with a maximum of 20 ounces. - No food from midnight until time of surgery and no smoking (1000am) Take only the following medications with a SIP of water on the morning of surgery: __Amlodipine, Coreg, Hydralizine and Hydrocodone if needed. DO NOT STOP ANY OF YOUR OTHER PRESCRIPTION MEDICATIONS PRIOR TO SURGERY EXCEPT THE FOLLOWING Medications to discontinue per physician ____Hold Aspirin/Blood thinners [address] Ellis ( and Dr Gifford to give recomm) . Date to take last dose____09/14/24 Hold all Vitamins and supplements 3 days prior to surgery per Anesthesia. Date to take last dose 09/18/24. Please no make-up, nail [place], hairspray, perfume, deodorant, or body powder the day of surgery.? No jewelry (including any body piercings) or valuables the day of surgery, leave them at home.? Please take a shower or bath the night before, or the morning of, surgery with an antibacterial soap.? Wear comfortable, loose fitting clothing.? - Jewelry must be removed prior to entering the operating room.? Rings and piercings that are not removed may be cut off. - The hospital will not accept responsibility for valuables.? - Please leave all valuables, including medications, at home the day of surgery. If you are going home after surgery, a licensed driver manager must drive you home.? - NO public transportation without another adult if you receive anesthesia. - We recommend that an adult stay with you for 24 hours following discharge. - We also recommend that you do not drive, make important decision, drink alcoholic beverages, or take any drugs that were not prescribed by your health care provider for at least 24 hours after your discharge time. Follow any additional instructions given to you from your surgeon. Telephone instructions given to ___Patient and asked if any additional questions and then verbalized understanding. Patient advised to call surgeon office or pre surgery nurse liaison [phone] if any additional questions.
[2024-09-22] VITALS (11 sets, daily range): BP systolic 122–143; BP diastolic 50–64; PULSE 52–85; RESP 10–18; TEMP 36.1–36.8; O2SAT 95–100
--- NOTE | ~2024-09-22 | XR_ITS ---
INTRAOPERATIVE FLUOROSCOPY: CLINICAL HISTORY: 89 years old Male; LEFT 2-4 MARIZA LAMI, LEFT L4-5 LATERAL FORAMINOTOMY PROCEDURE COMMENTS: Limited intraoperative fluoroscopy of the lumbar spine was performed. CUMULATIVE DOSE: 1.44 mGy FLUOROSCOPY TIME: 2 seconds FINDINGS/IMPRESSION: Please refer to operative note for further details. Reviewed, dictated and finalized at location A. [facility]
[2024-09-22] MEDS: LACTATED RINGERS 1,000 ML 30 ML IV CONT ×2 (11:40→15:53)
--- NOTE | 2024-09-22 13:24 | P.HP_ITS ---
H&P: HPI History of Present Illness Date/Time: 09/22/24 13:24 Chief Complaint: back and leg pain Narrative: Leobardo is an 89-year-old gentleman with a past medical history significant for decompression by way of laminectomy or hemilaminectomy at L4-5 and L5-S1 by Dr. Short in the distant past. He has had back pain for years. He now has left lower extremity pain that extends only proximally to about intermediate down the thigh laterally. This is worse when he stands walks and better if he sits. It is limiting and distracting for him on a daily basis. He underwent injections with Dr. Gomez which were not permanently helpful. He persists in having the back discomfort. He does not report specific muscle group weakness or dermatomal numbness. He is not having bowel or bladder difficulty. He does walk with a cane, however, for stability reasons. He has braces across the left knee and ankle.The discomfort is becoming quite limiting for him. While the back pain has been present for a long time and has become worse over time and especially recently. Even without the leg pain, he is enough pain that he is interested in definitive management of his problem. Review of Systems Review of Systems: All systems reviewed & are unremarkable except as noted in HPI and below Denies chills, Denies fever(s), Denies weakness, Denies weight gain and Denies weight loss Eyes Denies change in vision and Denies diplopia ENT Denies neck pain and Denies disequilibrium Card Denies chest pain and Denies dyspnea Resp Denies cough and Denies dyspnea GI Denies abdominal pain, Denies change in bowel habits, Denies fecal incontinence and Denies vomiting Denies hematuria, Denies oliguria, Denies difficulty urinating, Denies dysuria, Denies urinary frequency, Denies urinary hesitancy, Denies urinary incontinence and Denies urinary urgency Musc Reports as per HPI, Reports back pain, Denies muscle weakness, Denies neck pain, Reports numbness and Denies stiffness Skin/ Breast Reports system reviewed and no additional complaints, except as documented Neuro Reports as per HPI, Denies burning sensations, Denies focal weakness, Reports numbness, Denies Other visual disturbances, Reports radicular pain, Reports paresthesias, Denies disequilibrium and Denies weakness Psych Reports no additional complaints, Denies depression and Denies hopelessness Endo Reports no additional complaints and Denies polyuria Jung/ Lymph Reports no additional complaints Aller/ Immun Reports no additional complaints PMFSH Past Medical History Medical History Acquired left foot drop Anemia CAD in [place] artery Chronic low back pain Chronic systolic (congestive) heart failure Chronic venous insufficiency of lower extremity CKD (chronic kidney disease) stage 3, GFR 30-59 ml/min Conjunctivitis, right eye Dilated cardiomyopathy Dyslipidemia, goal LDL below 100 Encounter for monitoring long-term proton pump inhibitor therapy Environmental allergies Essential (primary) hypertension Fracture of right ankle, lateral malleolus 03/21/2001 Generalized weakness Gout attack (~07/2023) History of prostate cancer Hypogonadism in male Osteoporosis Pancytopenia Prediabetes Spinal stenosis 06/2015 Surgical History Surgical History H/O lumbar discectomy L4-5 2001 History of back surgery (~08/2023) Bilateral L2-3, L3-4 Minimally Invasive Lumbar Decompression with Fluoroscopy. 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 Sibling Lymphoma Social History Social History Social History: Surrogate medical decision maker: Seema Torres, spouse. Code status: Full code. Years smoked: 10 Smoking status: Former smoker Second hand tobacco smoke exposure: No Smoking end date: 11/11/86 Alcohol intake: current Drinks per week: 2 Alcohol use details: BEER Substance use: never Substance use type: does not use Do You Feel Safe in your Home?: Yes Lack of Transportation: No Lack of Food: Never True Current Housing: Decline to Answer Concerned About Future Housing: Decline to Answer Difficulty Paying Gas/Electric Bills: Decline to Answer Difficulty Paying for Meds: Decline to Answer Currently Unemployed: Decline to Answer Education: Decline to Answer Difficulty w/ Childcare or Family Care: Decline to Answer Living arrangements: with family Additional living arrangements comments: Occupation/Education: retired Spiritual care concerns: No Meds Home Medications and Allergies Home Medications Medication Instructions Recorded Confirmed Type denosumab 60 mg/mL subcutaneous 60 mg subcut [id number] 07/06/21 09/22/24 History syringe (Prolia) aspirin 81 mg tablet,delayed 81 mg PO DAILY 07/12/23 09/22/24 History release (Adult Aspirin Regimen) calcium carbonate 600 mg PO BID 01/13/24 09/22/24 History cholecalciferol (vitamin D3) 50 50 mcg PO DAILY 01/13/24 09/22/24 History mcg (2,000 unit) capsule hydralazine 25 mg tablet 25 mg PO BID #180 tabs 01/13/24 09/22/24 Rx hydrochlorothiazide 12.5 mg tablet 12.5 mg PO DAILY #90 tabs 01/13/24 09/22/24 Rx AFO brace #1 ea 01/20/24 09/22/24 Rx ferrous sulfate 325 mg (65 mg 325 mg PO DAILY #90 tabs 06/15/24 09/22/24 Rx iron) tablet simvastatin 20 mg tablet 20 mg PO QHS #90 tabs 07/06/24 09/22/24 Rx fluticasone propionate 50 1 spray intranasal QHS PRN 08/07/24 09/22/24 Rx mcg/actuation nasal congestion #16 grams spray,suspension (Allergy Relief (fluticasone)) amlodipine 5 mg tablet 5 mg PO DAILY #90 tabs 08/21/24 09/22/24 Rx carvedilol 25 mg tablet 37.5 mg PO Q12H #270 tabs 08/21/24 09/22/24 Rx allopurinol 100 mg tablet 100 mg PO DAILY 09/11/24 09/22/24 History esomeprazole magnesium 20 mg 40 mg PO DAILY 09/11/24 09/22/24 History capsule,delayed release hydrocodone 5 mg-acetaminophen 325 1 tablet PO PRN PRN Pain 09/11/24 09/22/24 History mg tablet Allergies Allergy/AdvReac Type Severity Reaction Status Date / Time No Known Allergies Allergy Unknown Verified 09/22/24 11:52 Vital Signs Vital Signs - 24 hr 09/22/24 11:26 Temperature 97.1 F L Pulse Rate 85 Respiratory Rate 18 Blood Pressure 132/50 L Pulse Oximetry 99 Oxygen Delivery Room Air Exam Narrative: General: cooperative, no acute distress, well developed, alert and awake Orientation/Consciousness: oriented to person, oriented to place and oriented to time Constitutional Limitations: no limitations Other: The patient is a normally developed, normal appearing male sitting on the examination table in no acute distress. He is awake, alert, and oriented x3 with good fund of knowledge, recall of events, and fluent speech. HENMT Head: normocephalic and atraumatic Ears: external ears normal Face/Nose/Sinus: Normal external nose present Eyes Eyelids: eyelids normal Pupils: Yes Pupils normal by confrontation EOM: EOMs intact bilaterally Neck General: Yes no meningeal signs, Yes supple and Yes no JVD Resp Effort/Inspection: normal respiratory effort and able to speak in complete sentences Cardio Rate: Yes regular rate GI Inspection: No abdominal distension Musc Other: Examination of the back reveals no tenderness. Range of motion of the back is full without pain in forward flexion, and lateral rotation to both sides. He has some discomfort and limitation in extension. Straight leg raise is negative bilaterally. Shlomo?s test is negative bilaterally. Skin General: normal color Neuro General: Yes oriented to person, Yes oriented to place, Yes oriented to time, Yes normal cognition and Yes no meningeal signs Cranial Nerves: Yes CN's II-XII intact bilaterally Other: Motor: Strength is Decreased in the left lower extremity throughout. He wears a brace at the knee and ankle. Hip flexor strength is 4/5.. Sensory: Sensation is intact to light touch throughout the upper and lower extremities bilaterally. Reflexes: Deep tendon reflexes are difficult to elicit at the knees or ankles bilaterally. There is no clonus. Gait: Gait, station, and transfers are independent and steady for short periods of time and over short distances. He walks slightly bent forward. Psych Appearance: grossly normal Mental status: Yes mental status grossly normal Mood: congruent mood Affect: Yes normal affect Speech/Movement: Normal speech and movement present Attitude: Yes cooperative Thought Content: Normal thought content present Assessment and Plan Assessment and plan (1) Lumbar radiculopathy: Code(s): M54.16 - Radiculopathy, lumbar region Status: Acute (2) Lumbar foraminal stenosis: Code(s): M48.061 - Spinal stenosis, lumbar region without neurogenic claudication Status: Acute (3) Lumbar disc herniation: Code(s): M51.26 - Other intervertebral disc displacement, lumbar region Status: Acute (4) Lumbar spondylosis: Code(s): M47.816 - Spondylosis without myelopathy or radiculopathy, lumbar region Status: Acute (5) Synovial cyst: Code(s): M71.30 - Other bursal cyst, unspecified site Status: Acute Sarah Booth is an 89-year-old gentleman with back and left lower extremity pain likely related to the neural compressive pathology at L2-3, L3-4 L4-5. I have recommended him a left L2-3 hemilaminectomy for synovial cyst, L3-4 hemilaminectomy on the left for herniated disc back and a left L4-5 far lateral foraminotomy. I described to him that operation, its risks, potential benefits, the operative postoperative course in detail answered all questions personally. We discussed risks including but not limited to permanent neurologic deficit secondary to nerve root injury, need for reoperation secondary to infection, bleeding, CSF leak, adjacent level disease, recurrent residual pathology or instability, failure of the procedure to relieve his pain or symptoms, persistent pain, medical complications related anesthesia or surgery, etc.. Indicates understanding and elects to proceed with that operation. We will save a dorsal column stimulator trial and perhaps permanent implantation for situation in which he would fail the simple decompressive surgery. He, and I, philosophically prefer a fix, if it can be obtained.
--- NOTE | 2024-09-22 13:39 | WPDANESEPPF ---
Anes - Initial Pre Proc Eval Procedure: Operation Date: 09/22/24 13:00 Proposed Procedures p Left 2-4 Javed Laminectomy, Left L4-5 Far Lateral Foraminotomy - Víctor Ellis MD Date/Time: 09/22/24 13:39 Surgeon: Víctor Ellis MD Pre Op Diagnosis: Lt 2-3 Synovial Cyst, Lt L3-4 Hernitated HNP Patient Data Age: 89 Gender: M Height: 1.73 m Weight: 70 kg Last Vital Signs Temp 97.1 F L 09/22/24 11:26 Pulse 85 09/22/24 11:26 Resp 18 09/22/24 11:26 BP 132/50 L 09/22/24 11:26 Pulse Ox 99 09/22/24 11:26 O2 Del Method Room Air 09/22/24 11:26 Allergies Allergy/AdvReac Type Severity Reaction Status Date / Time No Known Allergies Allergy Unknown Verified 09/22/24 11:52 Home Medications Medication Instructions Recorded Confirmed Type denosumab 60 mg/mL subcutaneous 60 mg subcut [id number] 07/06/21 09/22/24 History syringe (Prolia) aspirin 81 mg tablet,delayed 81 mg PO DAILY 07/12/23 09/22/24 History release (Adult Aspirin Regimen) calcium carbonate 600 mg PO BID 01/13/24 09/22/24 History cholecalciferol (vitamin D3) 50 50 mcg PO DAILY 01/13/24 09/22/24 History mcg (2,000 unit) capsule hydralazine 25 mg tablet 25 mg PO BID #180 tabs 01/13/24 09/22/24 Rx hydrochlorothiazide 12.5 mg tablet 12.5 mg PO DAILY #90 tabs 01/13/24 09/22/24 Rx AFO brace #1 ea 01/20/24 09/22/24 Rx ferrous sulfate 325 mg (65 mg 325 mg PO DAILY #90 tabs 06/15/24 09/22/24 Rx iron) tablet simvastatin 20 mg tablet 20 mg PO QHS #90 tabs 07/06/24 09/22/24 Rx fluticasone propionate 50 1 spray intranasal QHS PRN 08/07/24 09/22/24 Rx mcg/actuation nasal congestion #16 grams spray,suspension (Allergy Relief (fluticasone)) amlodipine 5 mg tablet 5 mg PO DAILY #90 tabs 08/21/24 09/22/24 Rx carvedilol 25 mg tablet 37.5 mg PO Q12H #270 tabs 08/21/24 09/22/24 Rx allopurinol 100 mg tablet 100 mg PO DAILY 09/11/24 09/22/24 History esomeprazole magnesium 20 mg 40 mg PO DAILY 09/11/24 09/22/24 History capsule,delayed release hydrocodone 5 mg-acetaminophen 325 1 tablet PO PRN PRN Pain 09/11/24 09/22/24 History mg tablet Patient hx anesthesia problems: none Family hx anesthesia problems: none Results Review: All pre-operative results and documents have been reviewed as part of the pre-operative evaluation. [facility], [facility] Past Medical History Medical History Acquired left foot drop Anemia CAD in tejon artery Chronic low back pain Chronic systolic (congestive) heart failure Chronic venous insufficiency of lower extremity CKD (chronic kidney disease) stage 3, GFR 30-59 ml/min Conjunctivitis, right eye Dilated cardiomyopathy Dyslipidemia, goal LDL below 100 Encounter for monitoring long-term proton pump inhibitor therapy Environmental allergies Essential (primary) hypertension Fracture of right ankle, lateral malleolus 03/21/2001 Generalized weakness Gout attack (~07/2023) History of prostate cancer Hypogonadism in male Osteoporosis Pancytopenia Prediabetes Spinal stenosis 06/2015 Surgical History Surgical History H/O lumbar discectomy L4-5 2001 History of back surgery (~08/2023) Bilateral L2-3, L3-4 Minimally Invasive Lumbar Decompression with Fluoroscopy. 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 Sibling Lymphoma Social History Social History Social History: Surrogate medical decision maker: Seema Brian, spouse. Code status: Full code. Years smoked: 10 Smoking status: Former smoker Second hand tobacco smoke exposure: No Smoking end date: 11/11/86 Alcohol intake: current Drinks per week: 2 Alcohol use details: BEER Substance use: never Substance use type: does not use Do You Feel Safe in your Home?: Yes Lack of Transportation: No Lack of Food: Never True Current Housing: Decline to Answer Concerned About Future Housing: Decline to Answer Difficulty Paying Gas/Electric Bills: Decline to Answer Difficulty Paying for Meds: Decline to Answer Currently Unemployed: Decline to Answer Education: Decline to Answer Difficulty w/ Childcare or Family Care: Decline to Answer Living arrangements: with family Additional living arrangements comments: Occupation/Education: retired Spiritual care concerns: No Anes - Eval Final PreProcedure Day of Procedure 09/22/24 13:39 Patient weight: normal Heart: regular rate and rhythm Lungs: clear to auscultation Airway: Mallampati scale class III Neurological: alert and oriented Last oral intake: >/= 8 hours ASA classification: III Emergent: no Anesthetic plan: proceed Anesthesia type and monitoring: general ETT and standard monitoring Results Review: All pre-operative results and documents have been reviewed as part of the pre-operative evaluation. Informed Consent: The patient's anesthetic plan and its attendant risks and benefits were discussed with the patient/family/POA. Questions were solicited and answers provided to the satisfaction of the patient/family/POA.
[2024-09-22] MEDS: ceFAZolin 2 GM/D5W 50 ML 2 GM/50 ML BAG IVPB (13:49)
[2024-09-22] MEDS: LIDO 1%/EPINEPHRINE 1:100,000 20 ML VIAL 10 ML INFILTRATE (14:33)
--- NOTE | 2024-09-22 17:30 | PC.NURSE ---
This patient, Leobardo Torres, was admitted to Medical Room 349-01. Patient/family oriented to hospital policies and general routines including ID bracelet, bed and alarms, visiting hours, pain management, procedures, bathroom and other care routines, personal items, smoking policy, room service/diet, and visiting hours. Information on how to activate the Rapid Response Team has been discussed. Patient/Family are encouraged to report perceived risks to care and to ask questions if they do not understand what they are told or what they should do.
--- NOTE | 2024-09-22 21:52 | PC.NURSE ---
Found pts bed saturated w blood from incision. The top of his incision is starting to separate and leak bright red blood. He isnt in pain or discomfort. I spoke with Dr. Pappas. He said to do my best to stop the bleeding by covering w ABDs and having pt lay on his back.
[2024-09-22] MEDS: carvediloL 12.5 MG TABLET 37.5 MG PO (22:10)
[2024-09-22] MEDS: hydrALAZINE HCL 25 MG TABLET PO (22:11)
[2024-09-22] MEDS: SIMVASTATIN 20 MG TABLET PO (22:11)
[2024-09-22] MEDS: DOCUSATE SODIUM 100 MG CAPSULE PO (22:11)
[2024-09-23 00:06] VITALS: BP 131/76; PULSE 76; RESP 18; TEMP 37.2; O2SAT 94
[2024-09-23 04:06] VITALS: BP 126/60; PULSE 66; RESP 18; TEMP 36.9; O2SAT 96
[2024-09-23] MEDS: HYDROcodone/acetaminophen (*CRX) 10-325 MG TABLET 1 TAB PO (04:28)
[2024-09-23] MEDS: ASPIRIN 81 MG ENTERIC TABLET PO (08:35)
[2024-09-23] MEDS: FERROUS SULFATE 325 MG TABLET DR PO (08:35)
[2024-09-23] MEDS: PANTOPRAZOLE 40 MG TABLET PO (08:35)
[2024-09-23] MEDS: hydroCHLOROthiazide 12.5 MG CAPSULE PO (08:35)
[2024-09-23] MEDS: CALCIUM CARBONATE (TUMS) 500 MG (200 MG ELEMENTAL) 600 MG PO (08:35)
[2024-09-23] MEDS: CHOLECALCIFEROL 1,000 UNITS TABLET 2000 UNITS PO (08:35)
[2024-09-23] MEDS: amLODIPine BESYLATE 5 MG TABLET PO (08:35)
[2024-09-23] MEDS: hydrALAZINE HCL 25 MG TABLET PO (08:35)
[2024-09-23] MEDS: allopurinoL 100 MG TABLET PO (08:35)
[2024-09-23] MEDS: DOCUSATE SODIUM 100 MG CAPSULE PO (08:35)
[2024-09-23 08:36] VITALS: PULSE 67
[2024-09-23] MEDS: carvediloL 12.5 MG TABLET 37.5 MG PO (08:36)
[2024-09-23 10:30] VITALS: BP 126/58; PULSE 65; RESP 17; TEMP 36.3; O2SAT 96
[2024-09-23 15:45] VITALS: BP 127/60; PULSE 67; RESP 18; TEMP 36.4; O2SAT 98
--- NOTE | 2024-09-23 16:35 | WPDNEUROSGPN ---
Progress Note: A&P Assessment and Plan (1) Status post lumbar laminectomy: Code(s): Z98.890 - Other specified postprocedural states Status: Acute Plan -Discharge home today -Follow up with Dr. Ellis as scheduled next month Subjective Date/time seen: 09/23/24 16:35 Interval history: Doing well today. His pain is reasonably well controlled. He has been ambulating and voiding independently. He had some drainage from the superior aspect of the incision; dressing was applied. He has not required this to be changed today. He would like to go home. Review of Systems Review of Systems: All systems reviewed & are unremarkable except as noted in HPI and below Exam Narrative: AOx4 Ambulating independently Very superficial dehiscence at superior aspect of incision which is not actively bleeding Objective Data Vital Signs Vital Signs: Vital Signs - 24 hr 09/22/24 16:45 09/22/24 16:59 09/22/24 17:36 Temperature 97.0 F L Pulse Rate 59 L 59 L 59 L Respiratory Rate 18 18 14 Blood Pressure 133/53 L 133/54 L 129/53 L Pulse Oximetry 97 98 95 Oxygen Delivery Room Air Room Air 09/22/24 18:06 09/22/24 22:11 09/22/24 22:10 Temperature 97.7 F 98.2 F Pulse Rate 58 L 73 72 Respiratory Rate 18 18 Blood Pressure 130/51 L 143/64 H Pulse Oximetry 98 96 Oxygen Delivery 09/23/24 00:06 09/23/24 04:06 09/23/24 07:58 Temperature 98.9 F 98.4 F Pulse Rate 76 66 Respiratory Rate 18 18 Blood Pressure 131/76 126/60 Pulse Oximetry 94 96 Oxygen Delivery Room Air 09/23/24 08:36 09/23/24 08:00 09/23/24 10:30 Temperature 97.4 F L Pulse Rate 67 65 Respiratory Rate 17 Blood Pressure 126/58 L Pulse Oximetry 96 Oxygen Delivery Room Air 09/23/24 15:45 Temperature 97.6 F Pulse Rate 67 Respiratory Rate 18 Blood Pressure 127/60 Pulse Oximetry 98 Oxygen Delivery Intake/Output Intake/Output: Intake & Output 09/20/24 09/21/24 09/22/24 09/23/24 23:59 23:59 23:59 23:59 Intake Total 610 900 Output Total 600 Balance 610 300 Meds/Results Medications: Active Medications Generic Name Dose Route Start Last Admin Trade Name Freq PRN Reason Stop Dose Admin Hydrocodone Bitart/Acetaminophen 1 tab 09/22/24 17:06 Hydrocodone/Acetaminophen (*Crx) 5-325 Mg Tablet PO Q4H PRN Mild Pain (1-3) Hydrocodone Bitart/Acetaminophen 1 tab 09/22/24 17:06 09/23/24 04:28 Hydrocodone/Acetaminophen (*Crx) 10-325 Mg Tablet PO 1 tab Q4H PRN Administration Moderate Pain (4-6) Al Hydrox/Mg Hydrox/Simethicone 20 ml 09/22/24 17:06 Mag Hydrox/Al Hydrox/Simeth 30 Ml Udc PO Q4H PRN Indigestion/Heartburn Allopurinol 100 mg 09/23/24 09:00 09/23/24 08:35 Allopurinol 100 Mg Tablet PO 100 mg DAILY CORBY Administration Amlodipine Besylate 5 mg 09/23/24 09:00 09/23/24 08:35 Amlodipine Besylate 5 Mg Tablet PO 5 mg DAILY CORBY Administration Aspirin 81 mg 09/23/24 09:00 09/23/24 08:35 Aspirin 81 Mg Enteric Tablet PO 81 mg DAILY CORBY Administration Bisacodyl 10 mg 09/22/24 17:06 Bisacodyl 10 Mg Suppository RECTAL DAILY PRN Constipation Calcium Carbonate 600 mg 09/23/24 09:00 09/23/24 08:35 Calcium Carbonate (Tums) 500 Mg (200 Mg Elemental) PO 600 mg BID CORBY Administration Carvedilol 37.5 mg 09/22/24 21:00 09/23/24 08:36 Carvedilol 12.5 Mg Tablet PO 37.5 mg Q12HR CORBY Administration Cyclobenzaprine HCl 10 mg 09/22/24 17:06 Cyclobenzaprine Hcl 10 Mg Tablet PO TID PRN Muscle Spasms Docusate Sodium 100 mg 09/22/24 21:00 09/23/24 08:35 Docusate Sodium 100 Mg Capsule PO 100 mg Q12HR CORBY Administration Ferrous Sulfate 325 mg 09/23/24 09:00 09/23/24 08:35 Ferrous Sulfate [address] PO 325 mg DAILY CORBY Administration Fluticasone Propionate 1 spray 09/22/24 17:06 Fluticasone Propionate 0.05% Na Spr 16 Gm Btl (*Bkc) NASAL QHS PRN congestion Hydralazine HCl 25 mg 09/22/24 21:00 09/23/24 08:35 Hydralazine Hcl 25 Mg Tablet PO 25 mg Q12HR CORBY Administration Hydrochlorothiazide 12.5 mg 09/23/24 09:00 09/23/24 08:35 Hydrochlorothiazide 12.5 Mg Capsule PO 12.5 mg DAILY CORBY Administration Morphine Sulfate 2 mg 09/22/24 17:06 Morphine Sulfate (*Crx) 2 Mg/Ml Inj IV PUSH Q2H PRN Pain Rated 7-10 Ondansetron HCl 4 mg 09/22/24 17:06 Ondansetron Inj 4 Mg/2 Ml Vial IV PUSH Q8H PRN Nausea And Vomiting Pantoprazole Sodium 40 mg 09/23/24 09:00 09/23/24 08:35 Pantoprazole 40 Mg Tablet PO 40 mg DAILY CORBY Administration Senna/Docusate Sodium 1 tab 09/22/24 17:06 Senna/Docusate Sodium Tablet PO HS PRN Constipation Simvastatin 20 mg 09/22/24 21:00 09/22/24 22:11 Simvastatin 20 Mg Tablet PO 20 mg QHS CORBY Administration Vitamin D 2,000 units 09/23/24 09:00 09/23/24 08:35 Cholecalciferol 1,000 Units Tablet PO 2,000 units DAILY CORBY Administration
--- NOTE | 2024-09-23 17:35 | PC.NURSE ---
Dressing not changed per md request. Pt advised to monitor incision.
--- NOTE | 2024-09-26 18:59 | WPDHPUPDATE1 ---
History and Physical Update Update Date/Time: 09/22/24 History and Physical has been reviewed, including an updated exam of the patient. There are NO changes in the patient's condition. Risks, benefits, and alternatives have been discussed and questions answered. Patient agrees to proceed with procedure.
--- NOTE | 2024-09-26 19:07 | P.OP_ITS ---
Procedure Note - Detailed Date of Procedure 09/22/24 Pre-op Diagnosis Lt 2-3 Synovial Cyst, Lt L3-4 Hernitated HNP, left L4-5 foraminal stenosis and foraminal disc herniation Post-op Diagnosis Same Procedure Performed left L3-4 hemilaminectomy Surgeon Víctor Ellis MD Anesthesia General Description of Procedure the patient was brought to the operating room in the supine position, was sedated, intubated placed under general anesthesia in routine fashion. He was then turned into the prone position on a Calos frame. The operation his back was examined, marked for incision, prepped and draped in routine sterile fashion. Incision was marked over the L2 through 5 spinous processes in the midline. This area was injected with 0.5% lidocaine with [id number] epinephrine. Intravenous antibiotics given prior to incision. Incision was made with a 10 blade scalpel down to the lumbodorsal fascia. A s ubperiosteal dissection of the muscle and soft tissue away from the spinous process lamina at L2 through 5 was performed with a subperiosteal elevator and Bovie cautery. There was scar at the inferior end of this area related to old operations. A verifying x-rays obtained to verify the level of operation. At L2-3 for a Midas Baron drill was used to perform a hemilaminectomy and medial facetectomy. At L2 and L3 under microscopy the yellow ligament was lifted and removed piecemeal using Kerrison punches. There was soft tissue, perhaps synovial cyst in the lateral epidural space that was removed. At the L3-4 L4-5 levels there was significant scar. This was dissected carefully and the nerve roots freed in the epidural space. 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 This situation plus the scar in the lateral epidural space and foramen made it impossible to safely dissect in the foramen. Therefore this part of the operation was not performed. The wound was then copiously irrigated with bacitracin irrigation all bleeding stopped with bipolar and Bovie cautery and Gelfoam thrombin powder. The wound was then closed in layered fashion with 2-0 Vicryl interrupted sutures in the lumbodorsal fascia and Juanjo's layer. 3-0 Vicryl buried interrupted sutures were placed in the dermis and the skin was closed with a running 4-0 Monocryl subcuticular stitch and dressed with Dermabond. The patient was allowed to wake up in the operating room and was taken to the recovery room in stable condition. There were no immediate complications of this operation. All counts were reported correct at the end of the case. Blood loss was 25 cc. The patient was neurologically at his baseline postoperatively. CPT codes: 18537, 25575 x 2 Estimated Blood Loss 25 Urine Output 600 Drains No Complications None Condition Stable Disposition PACU [facility] Billing Surgery - Charge Forward: Surgery Billing
== END 2024-09-23 17:25 | disposition home or self-care (01) ==
LOC: ANHSURGERY 11:11 → ANH3MED 17:09
PROVIDERS: PCP Family Medicine; Visit Provider Neurological Surgery
PROC: (CPT 63030; principal; 2024-09-22 13:00)
DX: M51.26 Other intervertebral disc displacement, lumbar region (principal); M71.38 Other bursal cyst, other site; M48.061 Spinal stenosis, lumbar region without neurogenic claudication; M47.26 Other spondylosis with radiculopathy, lumbar region; I13.0 Hypertensive heart and chronic kidney disease with heart failure and stage 1 through stage 4 chronic kidney disease, or unspecified chronic kidney disease; I50.22 Chronic systolic (congestive) heart failure; N18.30 Chronic kidney disease, stage 3 unspecified; I25.10 Atherosclerotic heart disease of native coronary artery without angina pectoris; I42.0 Dilated cardiomyopathy; E78.5 Hyperlipidemia, unspecified; D64.9 Anemia, unspecified; R73.03 Prediabetes; M81.0 Age-related osteoporosis without current pathological fracture; Z85.46 Personal history of malignant neoplasm of prostate; Z98.1 Arthrodesis status; Z87.891 Personal history of nicotine dependence
CPT/HCPCS: 63047; 36415; 80048; 81003; 85027; 85055; 85610; 85730; 97161; 97165; 99199; A9270; J0690; J1100; J2004; J2405; J2704; J3010; J7120

== ENCOUNTER 2024-10-21 09:20 | Outpatient (CLI) | payer MEDICARE, SELFPAY ==
[2024-10-21 12:53] LABS: Basophils Percent Auto 0.4 % (0.2-1.2); Eosinophils Absolute Auto 0.3 K/mm3 (0-0.3); Eosinophils Percent Auto 5.8 % (0-4.4); Hematocrit 35.4 % (42.0-52.0); Hemoglobin 11.6 g/dL (14.0-18.0); Immature Granulocyte Absolute 0.01 K/mm3 (0.00-0.031); Immature Granulocyte Percent A 0.2 % (0-0.5); Lymphocytes Absolute Auto 1.65 K/mm3 (0.9-3.2); Lymphocytes Percent Auto 32.9 % (18.3-44.2); Mean Corpuscular HGB Conc 32.8 g/dl (32-36); Mean Corpuscular Hemoglobin 32.2 pg (26-34); Mean Corpuscular Volume 98.3 fl (80-100); Mean Platelet Volume 11.2 fl (7.4-10.4); Monocytes Absolute Auto 0.5 K/mm3 (0.1-0.6); Neutrophils Absolute Auto 2.6 K/mm3 (1.3-6.7); Neutrophils Percent Auto 50.7 % (45.5-73.1); Platelet Count Result 116 k/mm3 (150-375); Red Cell Distribution Width 14.1 % (11.5-14.5)
[2024-10-21 13:20] LABS: Alanine Aminotransferase 15 U/L (6-50); Albumin Level 3.8 g/dL (3.5-5.1); Alkaline Phosphatase 56 U/L (38-126); Anion Gap 3 mmol/L (4-12); Aspartate Amino Transferase 33 U/L (17-59); Bilirubin,Total 0.5 mg/dL (0.2-1.3); Blood Urea Nitrogen 30 mg/dL (9-20); Calcium 9.3 mg/dL (8.4-10.2); Carbon Dioxide 30 mmol/L (22-30); Chloride 105 mmol/L (98-107); Cholesterol 126 mg/dL (0-200); Estimated Glomerular Filt Rate 38; Glucose 103 mg/dL (65-110); HDL Direct 40 mg/dL; Potassium 4.3 mmol/L (3.4-5.0); Sodium 138 mmol/L (137-145); Triglycerides 74 mg/dL (<150); Uric Acid 6.7 mg/dL (3.5-8.5)
[2024-10-21 13:32] LABS: LDL Cholesterol Direct 63 mg/dL
[2024-10-21 13:52] LABS: Prostate Specific Antigen < 0.1 ng/mL (< OR = 4.0)
[2024-10-21 13:53] LABS: Iron 87 ug/dL (49-181)
[2024-10-21 16:59] LABS: Percent Iron Saturation 30 % (20-50)
[2024-10-21 17:26] LABS: Vitamin D 25 Hydroxy 47.9 ng/mL
[2024-10-21 18:05] LABS: Hemoglobin A1C 5.7 % (<5.7)
[2024-10-21 22:22] LABS: Folic Acid 8.8 ng/mL (2.76->20)
== END 2024-10-21 09:21 | disposition home or self-care (01) ==
LOC: ANHGOSHLAB 09:21
PROVIDERS: PCP Family Medicine; Visit Provider Family Medicine
DX: D64.9 Anemia, unspecified (principal); I10 Essential (primary) hypertension; R73.9 Hyperglycemia, unspecified; E78.5 Hyperlipidemia, unspecified; Z00.00 Encounter for general adult medical examination without abnormal findings; E55.9 Vitamin D deficiency, unspecified; M10.00 Idiopathic gout, unspecified site; Z12.5 Encounter for screening for malignant neoplasm of prostate
CPT/HCPCS: 36415; 80053; 80061; 82306; 82607; 82728; 82746; 83036; 83540; 83550; 84153; 84443; 84550; 85025; G0103

== ENCOUNTER 2025-02-11 10:14 | Outpatient (NON) | payer MEDICARE, SELFPAY ==
--- OUTSIDE RECORDS SUMMARY | 2025-02-12 10:38 | XMS_ITS | Referral Summary ---
Author Organization [facility] D Address [address] [place] [address] Care Team Providers Care Information Assoc Name Role Phone Tray Rose MD Primary Care Provider Encounters Date Type Department Care Team Description 02/01/2025 1:00 PM CDT Office Visit [facility] Cardiology [address] [place] [address] Debra Moses NP Coronary artery disease involving [place] coronary artery of [place] heart without angina pectoris (Primary Dx); Ischemic cardiomyopathy; Essential hypertension from Last 3 Months Allergies No known active allergies Medications esomeprazole DR (NexIUM) 40 mg capsule take 1 capsule (40MG) by oral route every day 0 2 Active fluticasone propionate (FLONASE) 50 mcg/actuation nasal spray Administer 1 spray into each nostril daily 0 Active denosumab (PROLIA) 60 mg/mL syringe Inject 1 mL (60 mg total) under the skin once Active amLODIPine (NORVASC) 5 mg tablet Take 1 tablet (5 mg total) by mouth daily 90 tablet 3 3 Active simvastatin (ZOCOR) 20 mg tablet Take 1 tablet (20 mg total) by mouth nightly 90 tablet 3 3 Active hydroCHLOROthia zide (HYDRODIURIL) 12.5 mg tablet Take 1 tablet (12.5 mg total) by mouth daily 90 tablet 3 3 Active aspirin 81 mg enteric coated tablet Take 1 tablet (81 mg total) by mouth daily 30 tablet 11 3 Active carvediloL (COREG) 25 mg tablet TAKE 1 AND 1/2 TABLETS BY MOUTH TWICE DAILY 270 tablet 3 3 Active hydrALAZINE (APRESOLINE) 25 mg tablet TAKE 1 TABLET BY MOUTH TWICE DAILY 180 tablet 3 3 Active calcium carbonate/vitam in D3 (CALCIUM 500 + D ORAL) Take by mouth Ac tive cholecalciferol (VITAMIN D-3) 2000 unit capsule 1 capsule (2,000 Units total) Active ferrous sulfate 325 mg (65 mg of elemental iron) tablet Take 1 tablet (325 mg total) by mouth daily 5 Active nitroglycerin (NITROSTAT) 0.4 mg SL tabletIndicatio ns:Coronary artery disease involving [place] coronary artery of [place] heart without angina pectoris Place 1 tablet (0.4 mg total) under the tongue every 5 (five) minutes as needed for chest pain May repeat dose q 5 min, up to 3 doses total 25 tablet 3 5 02/02/20 26 Active Active Problems Problem Noted Date Diagnosed Date Hx of CABG 04/17/2022 Ischemic cardiomyopathy 04/17/2022 Dyspnea on exertion 05/16/2021 Assessment & Plan (05/16/2021 12:34 PM CDT): No evidence of congestive heart failure on exam. Blood pressure is a little high today, which is not typical for him. Will obtain a pharmacologic stress test to make sure that his increasing exertional dyspnea is not an angina equivalent. Squamous cell carcinoma in situ (SCCIS) of scalp 05/02/2020 Overview (05/02/2020): Added automatically from request for surgery [id number] Coronary artery disease invo lving [place] coronary artery of [place] heart without angina pectoris 12/03/2017 Assessment & Plan (11/21/2021 11:26 AM WEIGHER AND CHARGER): No symptoms of myocardial ischemia. Continue aspirin 325 mg daily. No stress- induced ischemia on recent pharmacologic MPI. He was advised of my care home in February 2022. I recommended that he see a napper fixer in six months. He is going to consider whether he wants to [facility] which is closer to his home, or see someone here at [facility]. He will call and let us know. Assessment & Plan (05/16/2021 12:35 PM CDT): No symptoms of chest discomfort. Most recent stress test showed fixed abnormalities and no stress-induced ischemia. Will repeat because of increasing exertional dyspnea. Assessment & Plan (11/17/2020 11:20 AM WEIGHER AND CHARGER): No symptoms of myocardial ischemia. Recent favorable MPI. Continue aspirin. Assessment & Plan (05/26/2020 10:34 AM CDT): No symptoms of chest discomfort. Exertional dyspnea could be an angina equivalent. As he appears to be facing back surgery, will obtain a Lexiscan study. Assessment & Plan (11/26/2019 10:26 AM WEIGHER AND CHARGER): No symptoms of myocardial ischemia. Continue aspirin. Assessment & Plan (06/06/2019 3:30 PM CDT): Asymptomatic. Continue aspirin. Assessment & Plan (12/05/2018 11:05 AM WEIGHER AND CHARGER): Asymptomatic. Continue aspirin. Assessment & Plan (06/03/2018 11:07 AM CDT): Asymptomatic. Continue aspirin. Assessment & Plan (12/03/2017 11:31 AM WEIGHER AND CHARGER): No symptoms of myocardial ischemia. He is on anti-platelet and beta-wilfrido therapy. He was given a new prescription for nitroglycerin since his current supply has crumbled. He has not been needing to use it. Essential hypertension 12/03/2017 Assessment & Plan (11/21/2021 11:25 AM WEIGHER AND CHARGER): Blood pressure is well controlled on current regimen which has been adjusted for his renal insufficiency. Assessment & Plan (05/16/2021 12:35 PM CDT): Blood pressure is higher than usual. He will monitor it at home. If it is elevated at home there is room to increase his hydralazine dosage. Assessment & Plan (11/17/2020 11:20 AM WEIGHER AND CHARGER): Blood pressure is adequately controlled on current regimen. No change was made. Assessment & Plan (05/26/2020 10:34 AM CDT): Blood pressure is adequately controlled on current regimen. No change was made. Assessment & Plan (11/26/2019 10:26 AM WEIGHER AND CHARGER): Blood pressure is adequately controlled on current regimen. No change was made. Assessment & Plan (06/06/2019 3:31 PM CDT): Blood pressure is adequately controlled on current regimen. No change was made. Assessment & Plan (12/05/2018 11:05 AM WEIGHER AND CHARGER): Blood pressure is adequately controlled on current regimen. No change was made. Assessment & Plan (06/03/2018 11:07 AM CDT): Not ideally controlled. There may be some component of office hypertension. Will increase hydralazine to 25 mg b.i.d.. He is to call me with blood pressures in a couple of weeks. Assessment & Plan (12/03/2017 11:31 AM WEIGHER AND CHARGER): Blood pressure is adequately controlled on current regimen. No change was made. Hyperlipidemia 12/03/2017 Assessment & Plan (11/21/2021 11:26 AM WEIGHER AND CHARGER): He tolerates low intensity statin therapy, simvastatin 20 mg daily. He has not previously tolerated high-intensity statin therapy. Assessment & Plan (05/16/2021 12:36 PM CDT): He does not tolerate high-intensity statin therapy but on low intensity statin therapy his LDL today is 53. Assessment & Plan (11/17/2020 11:20 AM WEIGHER AND CHARGER): On chronic lipid lowering therapy with good control. No changes made. Assessment & Plan (05/26/2020 10:39 AM CDT): On chronic lipid lowering therapy with good control. No changes made. He has previously not tolerated high-intensity statin therapy and is on intermediate intensity statin therapy. Assessment & Plan (11/26/2019 10:26 AM WEIGHER AND CHARGER): On chronic lipid lowering therapy with good control. No changes made. Assessment & Plan (06/06/2019 3:34 PM CDT): On chronic lipid lowering therapy with good control. No changes made. Assessment & Plan (12/05/2018 11:05 AM WEIGHER AND CHARGER): On chronic lipid lowering therapy with good control. No changes made. Assessment & Plan (06/03/2018 11:09 AM CDT): On chronic lipid lowering therapy with good control. No changes made. Assessment & Plan (12/03/2017 11:31 AM WEIGHER AND CHARGER): On chronic lipid lowering therapy with good control. No changes made. Ischemic cardiomyopathy 12/03/2017 Assessment & Plan (11/21/2021 11:25 AM WEIGHER AND CHARGER): Despite his reduced ejection fraction, he has not clinically had congestive heart failure. Continue carvedilol 25 mg b.i.d. and hydralazine 25 mg b.i.d.. Assessment & Plan (05/16/2021 12:35 PM CDT): EF was 32% by nuclear methodology but better than that by echo. He is on carvedilol and hydralazine. Assessment & Plan (11/17/2020 11:20 AM WEIGHER AND CHARGER): No evidence of congestive heart failure. Continue carvedilol. Assessment & Plan (05/26/2020 10:36 AM CDT): This also could be contributing to his exertional dyspnea. He does not appear to be in congestive heart failure. He is on beta-wilfrido and afterload reducing therapy. Afterload reduction is with hydralazine rather than an JIMMY-inhibitor because of renal function. Will assess with echo Doppler in anticipation of back surgery and in evaluation of his shortness of breath. Assessment & Plan (11/26/2019 10:26 AM WEIGHER AND CHARGER): No evidence of congestive heart failure by exam or chest x-ray on current regimen. Assessment & Plan (06/06/2019 3:31 PM CDT): Mild exertional dyspnea which has not progressed. There is no evidence of congestive heart failure. Assessment & Plan (12/05/2018 11:05 AM WEIGHER AND CHARGER): Well compensated on current regimen. No change made in medications. Assessment & Plan (06/03/2018 11:09 AM CDT): Well compensated. No evidence of congestive heart failure. Assessment & Plan (12/03/2017 11:31 AM WEIGHER AND CHARGER): Moderately reduced ejection fraction. He is on appropriate medication. There is no evidence of congestive heart failure on exam. 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 Prostate cancer 06/09/2013 Resolved Problems Problem Noted Date Diagnosed Date Resolved Date SCC (squamous cell carcinoma), scalp/neck 05/05/2020 06/13/2020 Immunizations Immunization Administration Dates Next Due Influenza, Quadrivalent, Hig h Dose, Preservative Free, Intrr 07/21/2020 Influenza, Trivalent, Adjuva nted, Intramuscular 08/23/2017 Influenza, Trivalent, High D ose, Split, Preservative Free, Intramuscular 08/24/2019,08/01/2018,07/31/2018 Influenza, Trivalent, Preser vative Free, Intramuscular 08/11/2015,08/11/2015 Influenza, Unspecified 06/30/2014,12/09/2013, Pneumococcal Conjugate PCV 13 12/03/2015 Pneumococcal Polysaccharide PPV23 10/15/2005 TD Preservative Free 11/23/2003 Tdap 04/05/2015 Social History Tobacco Use Types Packs/Day Years Used Date Smoking Tobacco: Never Smokeless Tobacco: Former Tobacco Cessation:Counseling Given: Not Answered Alcohol Use Standard Drinks/Week Comments Yes 2 (1 standard drink = 0.6 oz pur e alcohol) weekly AUDIT-C Answer Date Recorded Q1: How often do you have a drink containing alc ohol? Never 01/18/2023 Average Number of Drinks Not on file 023 Frequency of Binge Drinking Not on file 01/09 Sex and Gender Information Value Date Recorded Sex Assigned at Not on file Legal Sex Male 1:56 AM WEIGHER AND CHARGER Gender Identity Not on file Sexual Orientation Not on file Last Filed Vital Signs Vital Sign Reading Time Taken Comments Blood Pressure 140/58 02/01/2025 1:00 PM CDT Pulse 54 02/01/2025 1:00 PM CDT Temperature 36.7 C (98.1 F) 01/18/2023 7:05 AM WEIGHER AND CHARGER Respiratory Rate 16 01/18/2023 8:00 AM WEIGHER AND CHARGER Oxygen Saturation 97% 02/01/2025 1:00 PM CDT Inhaled Oxygen Concentration - - Weight 78 kg (172 lb) 02/01/2025 1:00 PM CDT Height 172.7 cm (5' 8 ) 02/01/2025 1:00 PM CDT Body Mass Index 26.15 02/01/2025 1:00 PM CDT Plan of Treatment Not on file Goals Goal Patient Goal Type Associated Problems Recent Progress Patient-Stated? Author CCM Chronic Pain Care Plan Chronic Care Management Yes Cat White, VEE Note: Problem: Chronic Pain Goals: 1. Minimize further functional decline 2. Maximize quality of life 3. Control pain Strategies: - Activity/exercise program recommendation - Conservative stepwise pain medicine strategy with multi-disciplinary approach - Recommend healthy lifestyle strategies and compensatory methods as needed Reduce the likelihood of falling Lifestyle No Cat White, RN Note: Below are four things you can do to prevent falls: Begin an exercise program to improve your leg strength & balance Ask your doctor or pharmacist to review your medicines Get annual eye check-ups & update your eyeglasses Make your home safer by: Removing clutter & tripping hazards Putting railings on all stairs & adding grab bars in the bathroom Having good lighting, especially on stairs Contact your local community or [facility] for information on exercise, fall prevention programs, or options for improving home safety. Insurance [facility] MEDICARE ADVANTAGE [facility] MEDICARE Address: [address] [address] [place] [address] [facility] MEDICARE [facility] MEDICARE Address: [address] [place] [address] Care Teams Information Assoc Relationship Specialty Start Date End Date Tray Rose MD PCP - General Family Practice 01/17/23
--- OUTSIDE RECORDS SUMMARY | 2025-02-12 10:38 | XMS_ITS ---
Author Organization [facility] D Address [address] [place] [id number] Care Team Providers Care Tour Consultant Name Role Phone Tray Rose MD Primary Care Provider Active Problems Problem Noted Date Diagnosed Date [...] (05/02/2020): Added automatically from request for surgery [id number] Coronary artery disease invo lving [place] coronary artery of [place] heart without angina pectoris 12/03/2017 Assessment & Plan (11/21/2021 11:26 AM ACCOUNTING LECTURER): No symptoms of myocardial ischemia. Continue aspirin 325 mg daily. No stress- induced ischemia on recent pharmacologic MPI. He was advised of my usp in February 2022. I recommended that he see a metal smelter in six months. He is going to consider whether he wants to switch to the [facility] which is closer to his home, or see someone here at [facility]. He will call and let us know. Assessment & Plan (05/16/2021 12:35 PM CDT): No symptoms of chest discomfort. Most recent stress test showed fixed abnormalities and no stress-induced ischemia. Will repeat because of increasing exertional dyspnea. Assessment & Plan (11/17/2020 11:20 AM ACCOUNTING LECTURER): No symptoms of myocardial ischemia. Recent favorable MPI. Continue aspirin. Assessment & Plan (05/26/2020 10:34 AM CDT): No symptoms of chest discomfort. Exertional dyspnea could be an angina equivalent. As he appears to be facing back surgery, will obtain a Lexiscan study. Assessment & Plan (11/26/2019 10:26 AM ACCOUNTING LECTURER): No symptoms of myocardial ischemia. Continue aspirin. Assessment & Plan (06/06/2019 3:30 PM CDT): Asymptomatic. Continue aspirin. Assessment & Plan (12/05/2018 11:05 AM ACCOUNTING LECTURER): Asymptomatic. Continue aspirin. Assessment & Plan (06/03/2018 11:07 AM CDT): Asymptomatic. Continue aspirin. Assessment & Plan (12/03/2017 11:31 AM ACCOUNTING LECTURER): No symptoms of myocardial ischemia. He is on anti-platelet and beta-wilfrido therapy. He was given a new prescription for nitroglycerin since his current supply has crumbled. He has not been needing to use it. Essential hypertension 12/03/2017 Assessment & Plan (11/21/2021 11:25 AM ACCOUNTING LECTURER): Blood pressure is well controlled on current regimen which has been adjusted for his renal insufficiency. Assessment & Plan (05/16/2021 12:35 PM CDT): Blood pressure is higher than usual. He will monitor it at home. If it is elevated at home there is room to increase his hydralazine dosage. Assessment & Plan (11/17/2020 11:20 AM ACCOUNTING LECTURER): Blood pressure is adequately controlled on current regimen. No change was made. Assessment & Plan (05/26/2020 10:34 AM CDT): Blood pressure is adequately controlled on current regimen. No change was made. Assessment & Plan (11/26/2019 10:26 AM ACCOUNTING LECTURER): Blood pressure is adequately controlled on current regimen. No change was made. Assessment & Plan (06/06/2019 3:31 PM CDT): Blood pressure is adequately controlled on current regimen. No change was made. Assessment & Plan (12/05/2018 11:05 AM ACCOUNTING LECTURER): Blood pressure is adequately controlled on current regimen. No change was made. Assessment & Plan (06/03/2018 11:07 AM CDT): Not ideally controlled. There may be some component of office hypertension. Will increase hydralazine to 25 mg b.i.d.. He is to call me with blood pressures in a couple of weeks. Assessment & Plan (12/03/2017 11:31 AM ACCOUNTING LECTURER): Blood pressure is adequately controlled on current regimen. No change was made. Hyperlipidemia 12/03/2017 Assessment & Plan (11/21/2021 11:26 AM ACCOUNTING LECTURER): He tolerates low intensity statin therapy, simvastatin 20 mg daily. He has not previously tolerated high-intensity statin therapy. Assessment & Plan (05/16/2021 12:36 PM CDT): He does not tolerate high-intensity statin therapy but on low intensity statin therapy his LDL today is 53. Assessment & Plan (11/17/2020 11:20 AM ACCOUNTING LECTURER): On chronic lipid lowering therapy with good control. No changes made. Assessment & Plan (05/26/2020 10:39 AM CDT): On chronic lipid lowering therapy with good control. No changes made. He has previously not tolerated high-intensity statin therapy and is on intermediate intensity statin therapy. Assessment & Plan (11/26/2019 10:26 AM ACCOUNTING LECTURER): On chronic lipid lowering therapy with good control. No changes made. Assessment & Plan (06/06/2019 3:34 PM CDT): On chronic lipid lowering therapy with good control. No changes made. Assessment & Plan (12/05/2018 11:05 AM ACCOUNTING LECTURER): On chronic lipid lowering therapy with good control. No changes made. Assessment & Plan (06/03/2018 11:09 AM CDT): On chronic lipid lowering therapy with good control. No changes made. Assessment & Plan (12/03/2017 11:31 AM ACCOUNTING LECTURER): On chronic lipid lowering therapy with good control. No changes made. Ischemic cardiomyopathy 12/03/2017 Assessment & Plan (11/21/2021 11:25 AM ACCOUNTING LECTURER): Despite his reduced ejection fraction, he has not clinically had congestive heart failure. Continue carvedilol 25 mg b.i.d. and hydralazine 25 mg b.i.d.. Assessment & Plan (05/16/2021 12:35 PM CDT): EF was 32% by nuclear methodology but better than that by echo. He is on carvedilol and hydralazine. Assessment & Plan (11/17/2020 11:20 AM ACCOUNTING LECTURER): No evidence of congestive heart failure. Continue [...] breath. Assessment & Plan (11/26/2019 10:26 AM ACCOUNTING LECTURER): No evidence of congestive heart failure by exam or chest x-ray on current regimen. Assessment & Plan (06/06/2019 3:31 PM CDT): Mild exertional dyspnea which has not progressed. There is no evidence of congestive heart failure. Assessment & Plan (12/05/2018 11:05 AM ACCOUNTING LECTURER): Well compensated on current regimen. No change made in medications. Assessment & Plan (06/03/2018 11:09 AM CDT): Well compensated. No evidence of congestive heart failure. Assessment & Plan (12/03/2017 11:31 AM ACCOUNTING LECTURER): Moderately reduced ejection fraction. He is on appropriate medication. There is no evidence of congestive heart failure on exam. 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 Past Treatment and Therapy Plans No past plan information found. Lifetime Dose Tracking * Chemical Lifetime Dose Automatic Entry Manual Entr y Fluoro Time 1.822 minutes 1.822 minutes 0 minutes Air kerma at the reference point (Ka,r) 18.41 mGy 1 8.41 mGy 0 mGy Resolved Problems Problem Noted Date Diagnosed Date Resolved Date SCC (squamous cell carcinoma), scalp/neck 05/05/2020 06/13/2020
--- OUTSIDE RECORDS SUMMARY | 2025-02-12 10:38 | XMS_ITS | Clinical Summary ---
Author Organization [facility] Address [address] [place] [address] Phone Care Team Providers Care Electrical Controls Assembler Name Role Phone Tray Rose MD Primary Care Provider Allergies No known active allergies Medications hydroCHLOROthia zide (HYDRODIURIL) 12.5 mg tablet Take 12.5 mg by mouth daily. Active simvastatin (ZOCOR) 20 mg tablet Take 20 mg by mouth daily with supper. Active carvediloL (COREG) 25 mg tablet Take 37.5 mg by mouth 2 times daily with meals. Active amLODIPine (NORVASC) 5 mg tablet Take 5 mg by mouth daily. Active hydrALAZINE (APRESOLINE) 25 mg tablet Take 25 mg by mouth 4 times daily. Active aspirin (DARIEN) 325 mg tablet Take 325 mg by mouth daily. Active esomeprazole (NexIUM) 40 mg Capsule, Delayed Release(E.C.) Take 40 mg by mouth daily before breakfast. Active fluticasone propionate (FLONASE) 50 mcg/spray [place], Suspension nasal inhaler Administer 2 Sprays in each nostril daily. Active denosumab (Prolia) 60 mg/mL Syringe Inject 1 mL (60 mg) under the skin every six months. 1 mL 1 04/11/2022 3:50 PM CDT 2 Active denosumab (Prolia) 60 mg/mL Syringe Inject 1 syringe (60mg) under the skin as directed EVERY 6 MONTHS 1 mL 1 04/12/2023 2:22 PM CDT 2 Active Active Problems No known active problems Family History Medical History Relation Name Comments Lymphoma Brother Other Mother lupus Relation Name Status Comments Brother Mother Social History Tobacco Use Types Packs/Day Years Used Date Smoking Tobacco: Never Smokeless Tobacco: Never Alcohol Use Standard Drinks/Week Comments Yes 0 (1 standard drink = 0.6 oz pur e alcohol) Sex and Gender Information Value Date Recorded Sex Assigned at Not on file Legal Sex Male 5:24 AM SPANISH MEDICAL INTERPRETER Gender Identity Not on file Sexual Orientation Not on file Last Filed Vital Signs Vital Sign Reading Time Taken Comments Blood Pressure 124/58 08/16/2020 10:09 AM CDT Pulse 60 08/16/2020 10:09 AM CDT Temperature 37.1 C (98.8 F) 07/12/2020 2:09 PM CDT Respiratory Rate - - Oxygen Saturation - - Inhaled Oxygen Concentration - - Weight 82.1 kg (181 lb) 08/16/2020 10:09 AM CDT Height 172.7 cm (5' 8 ) 08/16/2020 10:09 AM CDT Body Mass Index 27.52 08/16/2020 10:09 AM CDT Plan of Treatment Health Maintenance Due Date Last Done Comments DTAP/TDAP/TD VACCINES (1 - Tdap) 02[birth year]03/1954 PNEUMOCOCCAL VACCINE 50+ YEARS (1 of 1 - PCV) 02/02/19 87 ZOSTER VACCINE (1 of 2) 1987 RSV VACCINE (60+ or ) (1 - 1-dose 75+ series) 02/03/2012 INFLUENZA VACCINE (#1) 2024 08/11/[address] [id number] [place] [address] [facility] [id number] [facility] [address] [address] [place] [address] RX [employer] Member Subscriber Plan / Payer (Ef fective for All Dates) Name:Brian Leobardo Relation to Subscriber:Self Name:BrianJorgeLeobardo Payer ID:Not on file Group ID:[id number] Type:RX Medicare Part D Address: [address] Care Teams Electrical Controls Assembler Relationship Specialty Start Date End Date Tray Rose MD [address] [place] [address] PCP - General Family Practice 07/22/20
--- OUTSIDE RECORDS SUMMARY | 2025-02-12 10:38 | XMS_ITS | Clinical Summary ---
Author Organization [facility] Address [address] [place] [address] Care Team Providers Care Insole Tacker Name Role Phone Tray Rose MD Primary Care Provider Allergies No known active allergies Medications esomeprazole [...] mg SL tabletIndicatio ns:Coronary artery disease involving sycuan coronary artery of sycuan heart without angina pectoris Place 1 tablet [...] (05/02/2020): Added automatically from request for surgery [id number] Coronary artery disease invo lving sycuan coronary artery of sycuan heart without angina pectoris 12/03/2017 Assessment & Plan (11/21/2021 11:26 AM POSTER): No symptoms of myocardial ischemia. Continue aspirin 325 mg daily. No stress- induced ischemia on recent pharmacologic MPI. He was advised of my halfway in February 2022. I recommended that he see a avionics system engineer in six months. He is going to consider whether he wants to switch [facility] which [facility] closer to his home, or see someone here at [facility]. He will call and let us know. Assessment & Plan (05/16/2021 12:35 PM CDT): No symptoms of chest discomfort. Most recent stress test showed fixed abnormalities and no stress-induced ischemia. Will repeat because of increasing exertional dyspnea. Assessment & Plan (11/17/2020 11:20 AM POSTER): No symptoms of myocardial ischemia. Recent favorable MPI. Continue aspirin. Assessment & Plan (05/26/2020 10:34 AM CDT): No symptoms of chest discomfort. Exertional dyspnea could be an angina equivalent. As he appears to be facing back surgery, will obtain a Lexiscan study. Assessment & Plan (11/26/2019 10:26 AM POSTER): No symptoms of myocardial ischemia. Continue aspirin. Assessment & Plan (06/06/2019 3:30 PM CDT): Asymptomatic. Continue aspirin. Assessment & Plan (12/05/2018 11:05 AM POSTER): Asymptomatic. Continue aspirin. Assessment & Plan (06/03/2018 11:07 AM CDT): Asymptomatic. Continue aspirin. Assessment & Plan (12/03/2017 11:31 AM POSTER): No symptoms of myocardial ischemia. He is on anti-platelet and beta-wilfrido therapy. He was given a new prescription for nitroglycerin since his current supply has crumbled. He has not been needing to use it. Essential hypertension 12/03/2017 Assessment & Plan (11/21/2021 11:25 AM POSTER): Blood pressure is well controlled on current regimen which has been adjusted for his renal insufficiency. Assessment & Plan (05/16/2021 12:35 PM CDT): Blood pressure is higher than usual. He will monitor it at home. If it is elevated at home there is room to increase his hydralazine dosage. Assessment & Plan (11/17/2020 11:20 AM POSTER): Blood pressure is adequately controlled on current regimen. No change was made. Assessment & Plan (05/26/2020 10:34 AM CDT): Blood pressure is adequately controlled on current regimen. No change was made. Assessment & Plan (11/26/2019 10:26 AM POSTER): Blood pressure is adequately controlled on current regimen. No change was made. Assessment & Plan (06/06/2019 3:31 PM CDT): Blood pressure is adequately controlled on current regimen. No change was made. Assessment & Plan (12/05/2018 11:05 AM POSTER): Blood pressure is adequately controlled on current regimen. No change was made. Assessment & Plan (06/03/2018 11:07 AM CDT): Not ideally controlled. There may be some component of office hypertension. Will increase hydralazine to 25 mg b.i.d.. He is to call me with blood pressures in a couple of weeks. Assessment & Plan (12/03/2017 11:31 AM POSTER): Blood pressure is adequately controlled on current regimen. No change was made. Hyperlipidemia 12/03/2017 Assessment & Plan (11/21/2021 11:26 AM POSTER): He tolerates low intensity statin therapy, simvastatin 20 mg daily. He has not previously tolerated high-intensity statin therapy. Assessment & Plan (05/16/2021 12:36 PM CDT): He does not tolerate high-intensity statin therapy but on low intensity statin therapy his LDL today is 53. Assessment & Plan (11/17/2020 11:20 AM POSTER): On chronic lipid lowering therapy with good control. No changes made. Assessment & Plan (05/26/2020 10:39 AM CDT): On chronic lipid lowering therapy with good control. No changes made. He has previously not tolerated high-intensity statin therapy and is on intermediate intensity statin therapy. Assessment & Plan (11/26/2019 10:26 AM POSTER): On chronic lipid lowering therapy with good control. No changes made. Assessment & Plan (06/06/2019 3:34 PM CDT): On chronic lipid lowering therapy with good control. No changes made. Assessment & Plan (12/05/2018 11:05 AM POSTER): On chronic lipid lowering therapy with good control. No changes made. Assessment & Plan (06/03/2018 11:09 AM CDT): On chronic lipid lowering therapy with good control. No changes made. Assessment & Plan (12/03/2017 11:31 AM POSTER): On chronic lipid lowering therapy with good control. No changes made. Ischemic cardiomyopathy 12/03/2017 Assessment & Plan (11/21/2021 11:25 AM POSTER): Despite his reduced ejection fraction, he has not clinically had congestive heart failure. Continue carvedilol 25 mg b.i.d. and hydralazine 25 mg b.i.d.. Assessment & Plan (05/16/2021 12:35 PM CDT): EF was 32% by nuclear methodology but better than that by echo. He is on carvedilol and hydralazine. Assessment & Plan (11/17/2020 11:20 AM POSTER): No evidence of congestive heart failure. Continue [...] breath. Assessment & Plan (11/26/2019 10:26 AM POSTER): No evidence of congestive heart failure by exam or chest x-ray on current regimen. Assessment & Plan (06/06/2019 3:31 PM CDT): Mild exertional dyspnea which has not progressed. There is no evidence of congestive heart failure. Assessment & Plan (12/05/2018 11:05 AM POSTER): Well compensated on current regimen. No change made in medications. Assessment & Plan (06/03/2018 11:09 AM CDT): Well compensated. No evidence of congestive heart failure. Assessment & Plan (12/03/2017 11:31 AM POSTER): Moderately reduced ejection fraction. He is on [...] SCC (squamous cell carcinoma), scalp/neck 05/05/2020 06/13/2020 Encounters Date Type Department Care Team Description 02/01/2025 1:00 PM CDT Office Visit [facility] [address] [place] [address] Debra Moses NP Coronary artery disease involving sycuan coronary artery of sycuan heart without angina pectoris (Primary Dx); Ischemic cardiomyopathy; Essential hypertension from Last 3 Months Immunizations Immunization Administration Dates Next Due Influenza, Quadrivalent, Hig h Dose, Preservative Free, Intrr 07/21/2020 Influenza, Trivalent, Adjuva nted, Intramuscular 08/23/2017 Influenza, Trivalent, High D ose, Split, Preservative Free, Intramuscular 08/24/2019,08/01/2018,07/31/2018 Influenza, Trivalent, Preser vative Free, Intramuscular 08/11/2015,08/11/2015 Influenza, Unspecified 06/30/2014,12/09/2013, Pneumococcal Conjugate PCV 13 12/03/2015 Pneumococcal Polysaccharide PPV23 10/15/2005 TD Preservative Free 11/23/2003 Tdap 04/05/2015 Surgical History Surgery Date Site/Laterality Comments PROSTATECTOMY Prostatectomy BACK SURGERY Back Surgery CHOLECYSTECTOMY Cholecystectomy EPIDURAL INJECTION LUMBOSACRAL 05/28/2016 N/A CORONARY ARTERY BYPASS GRAFT SQUAMOUS CELL CARCINOMA EXCISION 11/11/2019 - 11/10/2020 Medical History Medical History Date Comments Hx Other Medical h/o lower GI bl eed Hx Other Medical Ulcer disease Myocardial infarction (HCC) Peptic ulceration SCC (squamous cell carcinoma), scalp/neck 2019 Abnormal ECG Chest pain CHF (congestive heart failure) (HCC) Osteoporosis Hypertension Low back pain Chronic pain disorder RA (rheumatoid arthritis) (HCC) Family History Medical History Relation Name Comments Lymphoma Brother No Known Problems Father No Known Problems Father's Brother No Known Problems Father's Sister No Known Problems Maternal Grandfather No Known Problems Maternal Grandmother Lupus Mother No Known Problems Mother's Brother No Known Problems Mother's Sister No Known Problems Paternal Grandfather No Known Problems Paternal Grandmother No Known Problems Sister Anemia Neg Hx Arrhythmia Neg Hx Asthma Neg Hx Clotting disorder Neg Hx Fainting Neg Hx Heart attack Neg Hx Heart disease Neg Hx Heart failure Neg Hx Hyperlipidemia Neg Hx Hypertension Neg Hx Hypertrophic cardiomyopathy Neg Hx Stroke Neg Hx Sudden Cardiac Neg Hx Relation Name Status Comments Brother Father Father's Brother Father's Sister Maternal Grandfather Maternal Grandmother Mother Mother's Brother Mother's Sister Paternal Grandfather Paternal Grandmother Sister Social History Tobacco Use Types Packs/Day Years [...] on file Legal Sex Male 1:56 AM POSTER Gender Identity Not on file Sexual Orientation Not on file Obstetrics History Last Filed Vital Signs Vital Sign Reading Time Taken Comments Blood Pressure 140/58 02/01/2025 1:00 PM CDT Pulse 54 02/01/2025 1:00 PM CDT Temperature 36.7 C (98.1 F) 01/18/2023 7:05 AM POSTER Respiratory Rate 16 01/18/2023 8:00 AM POSTER Oxygen Saturation 97% 02/01/2025 1:00 PM CDT Inhaled Oxygen Concentration - - Weight 78 kg (172 lb) 02/01/2025 1:00 PM CDT Height 172.7 cm (5' 8 ) 02/01/2025 1:00 PM CDT Body Mass Index 26.15 02/01/2025 1:00 PM CDT Plan of Treatment Health Maintenance Due Date Last Done Comments Depression Screening 1935 Hepatitis B Screening 1955 Zoster Vaccine (1 of 2) 1987 Well Visit 65+ 2002 Fall Risk Assessment 01/19/2024 01/18/2023, 09/11/2022, 10/27/2021, Additional history exists Influenza Vaccine (#1) 2024 , 08/24/2019, 08/01/2018, Additional history exists DTaP/Tdap/Td Vaccine (2 - Td or Tdap) 04/05/2025 04/05/2015, 11/23/2003 Pneumococcal vaccine 65+ Completed 12/03/2015, 03/2005 Goals Goal Patient Goal Type Associated Problems Recent Progress Patient-Stated? Author CCM Chronic Pain Care Plan Chronic Care Management Yes Cat White, RN Note: Problem: Chronic Pain Goals: 1. Minimize [...] on stairs Contact your local community or [facility] for information on exercise, fall prevention programs, or options for improving home safety. Insurance [employer] MEDICARE ADVANTAGE [facility] MEDICARE Address: [address] [address] [place] [address] FORMERLY [facility] MEDICARE [facility] MEDICARE Address: [address] [place] [address] Care Teams Insole Tacker Relationship Specialty Start Date End Date Tray Rose MD PCP - General Family Practice 01/17/23
--- OUTSIDE RECORDS SUMMARY | 2025-02-12 10:39 | XMS_ITS | Encounter Summary ---
Author Organization [facility] Address 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
--- OUTSIDE RECORDS SUMMARY | 2025-02-12 10:39 | XMS_ITS | Encounter Summary ---
Author Organization [facility] Address 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
--- OUTSIDE RECORDS SUMMARY | 2025-02-12 10:39 | XMS_ITS | Clinical Summary ---
Author Organization [facility] Address [address] [place] [address] Care Team Providers Care Physician Underwriter Name Role Phone Unavailable Primary Care Provider Unavailabl e Social History Tobacco Use Types Packs/Day Years Used Date Smoking Tobacco: Never Assessed Sex and Gender Information Value Date Recorded Sex Assigned at Not on file Legal Sex Male 7:32 PM CDT Gender Identity Not on file Sexual Orientation Not on file Plan of Treatment Health Maintenance Due Date Last Done Comments DTaP, Tdap and Td Vaccines ( 1 - Tdap) 02/03/1956 Zoster Vaccines (1 of 2) 1987 Pneumococcal Vaccine: 65+ Ye ars (1 of 1 - PCV) 2002 RSV Immunization or 60+ Years (1 - 1-dose 75+ series) 02/03/2012 COVID-19 Vaccine ( - 2023-2 5 season) 2024 Influenza Adult (#1) 2024 Meningococcal B Vaccine Aged Out No l onger eligible based on patient's age to complete this topic Meningococcal Vaccine Aged Out No fausto fernandez eligible based on patient's age to complete this topic RSV Immunizations Under 20 Months Aged Out No longer eligible based on patient's age to complete this topic
--- OUTSIDE RECORDS SUMMARY | 2025-02-12 10:39 | XMS_ITS | Encounter Summary ---
Author Organization [facility] Address [address] [place] [address] Care Team Providers Care Skeet Operator Name Role Phone Tray Rose MD Primary Care Provider Encounter Details Date Type Department Care Team (Late st Contact Info) Description 03/25/2003 Outpatient Historical [facility] (Adt Cardiology[facility]) [address] 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
--- OUTSIDE RECORDS SUMMARY | 2025-02-12 10:39 | XMS_ITS | Encounter Summary ---
Author Organization [facility] Address 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
== END 2025-02-11 10:15 | disposition home or self-care (01) ==
PROVIDERS: PCP Family Medicine; Visit Provider Plastic Surgery
DX: C34.92 Malignant neoplasm of unspecified part of left bronchus or lung (principal)
CPT/HCPCS: 88305

== ENCOUNTER 2025-03-27 10:33 | Emergency (ER) | payer MEDICARE, SELFPAY ==
[2025-03-27 11:20] VITALS: BP 120/50; PULSE 70; RESP 16; TEMP 36.3; O2SAT 98
--- NOTE | 2025-03-27 11:44 | ED_ITS ---
HPI - Extremity Injury (Upper) General Chief Complaint: Skin/Abscess/Foreign Body Stated Complaint: L ARM INJURY Time Seen by Provider: 03/27/25 12:07 Source: patient Mode of arrival: ambulatory Limitations: no limitations History of Present Illness HPI narrative: 89 y/o male presented for c/o skin tear to the left forearm sustained 2 days ago. States he tripped and skinned the arm on a wooden deck. Since then, they have kept the skin clean and applied a nonstick dressing and neosporin daily. Denies any pain or decreased ROM to the arm, denies numbness, tingling or weakness to the left hand. Related Data Home Medications Medication Instructions Recorded Confirmed Last Taken Type denosumab 60 mg/mL subcutaneous 60 mg subcut [id number] 07/06/21 03/27/25 07/06/24 21:00 History syringe (Prolia) aspirin 81 mg tablet,delayed 81 mg PO DAILY 07/12/23 03/27/25 07/06/24 21:00 History release (Adult Aspirin Regimen) calcium carbonate 600 mg PO BID 01/13/24 03/27/25 07/06/24 21:00 History cholecalciferol (vitamin D3) 50 50 mcg PO DAILY 01/13/24 03/27/25 07/06/24 21:00 History mcg (2,000 unit) capsule nitroglycerin 0.4 mg sublingual mg 03/27/25 Unknown History tablet Allergies Allergy/AdvReac Type Severity Reaction Status Date / Time No Known Allergies Allergy Unknown Verified 03/27/25 11:05 Review of Systems Review of Systems: CONSTITUTIONAL: Denies body aches, fever, chills, or sweats. EYES: Denies visual changes, redness, or discharge. ENT: Denies rhinorrhea, congestion CARDIOVASCULAR: Denies chest pain, palpitations, or edema. RESPIRATORY: Denies cough or dyspnea. GASTROINTESTINAL: Denies abdominal pain, nausea, vomiting, or diarrhea. SKIN: reports skin tears MUSCULOSKELETAL: Denies back pain, joint pain, or myalgia. NEUROLOGIC: Denies headache, numbness, tingling, or weakness. [facility] Past Medical History Medical History Personal history of colonic polyps Chronic venous insufficiency of lower extremity Acquired left foot drop Anemia Gout attack (~07/2023) Chronic low back pain Conjunctivitis, right eye Prediabetes Osteoporosis Pancytopenia Dilated cardiomyopathy Fracture of right ankle, lateral malleolus 03/21/2001 Spinal stenosis 06/2015 Hypogonadism in male Environmental allergies CAD in [place] artery Essential (primary) hypertension CKD (chronic kidney disease) stage 3, GFR 30-59 ml/min Dyslipidemia, goal LDL below 100 History of prostate cancer Chronic systolic (congestive) heart failure Surgical History Surgical History History of back surgery (~08/2023) Bilateral L2-3, L3-4 Minimally Invasive Lumbar Decompression with Fluoroscopy. History of surgery of head SCC of scalp excision 05/2020 History of cholecystectomy 2007 History of hemilaminectomy L3-4: 07/09/2016 left L3-4 hemilaminectomy 09/2024 H/O lumbar discectomy L4-5 2002 History of prostatectomy 2003 Hx of CABG 1992 Family History Family History Mother Lupus Son No problems noted. Sibling Lymphoma Social History Social History Social History: Surrogate medical decision maker: Seema Torres, spouse. Code status: Full code. Years smoked: 10 Smoking status: Former smoker (as a teenager) Second hand tobacco smoke exposure: No Alcohol intake: current Drinks per week: 2 Alcohol use details: BEER Substance use: never Substance use type: does not use Do You Feel Safe in your Home?: Yes Lack of Transportation: No Lack of Food: Never True Current Housing: Decline to Answer Concerned About Future Housing: Decline to Answer Difficulty Paying Gas/Electric Bills: Decline to Answer Difficulty Paying for Meds: Decline to Answer Currently Unemployed: Decline to Answer Education: Decline to Answer Difficulty w/ Childcare or Family Care: Decline to Answer Living arrangements: with family Additional living arrangements comments: Occupation/Education: retired Spiritual care concerns: No Comments At time of signature, I have reviewed and agree with nursing past medical, surgical, social and family history unless otherwise noted. Please see nursing chart for further information. There is no relevant family history pertinent to the presenting complaint Exam Narrative: GENERAL: Well-appearing HEAD: Normocephalic, atraumatic. EYES: conjunctivae clear, and EOMI. ENT: Mucous membranes moist. Oropharynx without edema, erythema or lesions. NECK: Supple. No lymphadenopathy CHEST: Clear to auscultation. HEART: Regular rate and rhythm. SKIN: Warm, dry. left forearm skin tears; proximal 3cm diameter, distal 6cm, unable to approximate the wound edges. NEURO: Alert and oriented x3. Course Course Emergency Course: Patient is aware of diagnosis, understands and agrees to treatment plan. Anticipatory guidance given. Patient agrees to follow-up as directed and is aware of reasons to seek care at the emergency department. Portions of this record may have been created with voice recognition software Level of Care: Express Care Visit Vital Signs Vital signs: Vital Signs Temperature 97.3 F L 03/27/25 11:20 Pulse Rate 70 03/27/25 11:20 Respiratory Rate 16 03/27/25 11:20 Blood Pressure 120/50 L 03/27/25 11:20 Pulse Oximetry 98 03/27/25 11:20 Oxygen Delivery Room Air 03/27/25 11:20 Temperature 97.3 F L 03/27/25 11:20 Pulse Rate 70 03/27/25 11:20 Respiratory Rate 16 03/27/25 11:20 Blood Pressure 120/50 L 03/27/25 11:20 Pulse Oximetry 98 03/27/25 11:20 Oxygen Delivery Room Air 03/27/25 11:20 Reviewed MDM - Extremity Injury (Upper) MDM Narrative Medical decision making narrative: Discussed physical exam findings; skin tears to left forearm. Skin is unable to be approximated. Wound cleansed, vaseline gauze applied. Tetanus updated. Advised supportive measures and signs/symptoms to go to the ER. Pt is appropriate for outpt treatment and f/u with pcp for wound recheck. Differential Diagnosis Differential diagnosis: Likely other (abrasion, avulsion, laceration, contusion, cellulitis) Discharge Plan Discharge Clinical Impression: Avulsion of skin of forearm Patient Disposition: Home Condition: Stable Instructions: Laceration (ED) Additional Instructions: Keep the area clean and dry - cleanse daily with either wound cleanser spray or with warm water and mild soap and allow to fully dry. apply ointment as prescribed to the site Keep it covered, change the dressing daily. Avoid any adhesive to the site. Use a nonstick dressing with the ointment and wrap with gauze or coban Watch for worsening symptoms including pain, redness, swelling, streaking, pus/drainage, fever. Go to the ER with any of these symptoms or concerns. Follow up with primary care provider in 1 week as needed for wound recheck. Patient Language: German Prescriptions: New cephalexin 500 mg capsule 500 mg PO Q8H 5 Days Qty: 15 0RF mupirocin 2 % ointment 1 applic topical BID 14 Days Qty: 22 0RF No Action nitroglycerin 0.4 mg tablet, sublingual aspirin [Adult Aspirin Regimen] 81 mg tablet,delayed release (DR/EC) 81 mg PO DAILY Patient Comments: Hold ASA 7 days prior Prolia 60 mg/mL syringe 60 mg subcut [id number] Rx Instructions: NOV 2024 due calcium carbonate 600 mg calcium (1,500 mg) tablet 600 mg PO BID cholecalciferol (vitamin D3) 50 mcg (2,000 unit) capsule 50 mcg PO DAILY esomeprazole magnesium 20 mg capsule,delayed release(DR/EC) 20 mg PO DAILY Qty: 90 2RF (DME) AFO brace See Rx Instructions .Route .MEDSUPPLY Qty: 1 0RF Rx Instructions: use As directed ferrous sulfate 325 mg (65 mg iron) tablet 325 mg PO DAILY Qty: 90 2RF cyanocobalamin (vitamin B-12) 1,000 mcg tablet, sublingual 1,000 mcg sublingual DAILY Qty: 90 1RF fluticasone propionate [Allergy Relief (fluticasone)] 50 mcg/actuation spray,suspension 1 spray NASAL QHS PRN (Reason: congestion) Qty: 16 5RF simvastatin 20 mg tablet 20 mg PO QHS Qty: 90 1RF carvedilol 25 mg tablet 37.5 mg PO Q12H Qty: 270 1RF amlodipine 5 mg tablet 5 mg PO DAILY Qty: 90 1RF hydrochlorothiazide 12.5 mg tablet 12.5 mg PO DAILY Qty: 90 1RF hydralazine 25 mg tablet 25 mg PO BID Qty: 180 1RF Follow-up/Referrals: Hayley Rose MD [Primary Care Provider] - Time of Disposition: 12:01
[2025-03-27] MEDS: TETANUS,DIPHTHERIA,AC PERTUSSIS ADULT (0.5 ML) BOOSTRIX IM (12:16)
== END 2025-03-27 12:23 | disposition home or self-care (01) ==
PROVIDERS: Emergency Provider Nurse Practitioner Family; PCP Family Medicine
DX: S51.812A Laceration without foreign body of left forearm, initial encounter (principal); W01.198A Fall on same level from slipping, tripping and stumbling with subsequent striking against other object, initial encounter; Z23 Encounter for immunization; I25.10 Atherosclerotic heart disease of native coronary artery without angina pectoris; I13.0 Hypertensive heart and chronic kidney disease with heart failure and stage 1 through stage 4 chronic kidney disease, or unspecified chronic kidney disease; N18.30 Chronic kidney disease, stage 3 unspecified; I50.22 Chronic systolic (congestive) heart failure; R73.03 Prediabetes; M81.0 Age-related osteoporosis without current pathological fracture; E78.5 Hyperlipidemia, unspecified; M10.9 Gout, unspecified; D64.9 Anemia, unspecified; M48.00 Spinal stenosis, site unspecified; Z85.46 Personal history of malignant neoplasm of prostate; I42.0 Dilated cardiomyopathy; Z90.79 Acquired absence of other genital organ(s); Z95.1 Presence of aortocoronary bypass graft; Z87.891 Personal history of nicotine dependence; Z79.82 Long term (current) use of aspirin
CPT/HCPCS: 90471; 90715; 99213; G0463

== ENCOUNTER 2025-04-20 11:16 | Outpatient (CLI) | payer MEDICARE, SELFPAY ==
--- OUTSIDE RECORDS SUMMARY | 2025-04-20 12:37 | XMS_ITS | Clinical Summary ---
Author Organization [facility] Address [address] [place] [address] Phone Care Team Providers Care Certified Adapted Physical Educator Name Role Phone Tray Rose MD Primary [...] breakfast. 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 Gender Identity Not on file Sexual Orientation [...] 10:09 AM CDT Height 172.7 cm (5' 8) 08/16/2020 10:09 AM CDT Body Mass Index [...] VACCINE (#1) 2024 08/11/[address] [id number] [place] [address] [facility] [id number] [facility] [address] [address] [place] [address] RX [employer] Member Subscriber Plan / Payer (Ef fective for All Dates) Name:Brian Leobardo Relation to Subscriber:Self Name:BrianJorgeLeobardo Payer ID:Not on file Group ID:[id number] Type:RX Medicare Part D Address: [address] Care Teams Certified Adapted Physical Educator Relationship Specialty Start Date End Date Tray Rose MD [address] [place] [address] PCP - General Family Practice 07/22/20
--- OUTSIDE RECORDS SUMMARY | 2025-04-20 12:37 | XMS_ITS | Encounter Summary ---
Author Organization [facility] Address 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
--- OUTSIDE RECORDS SUMMARY | 2025-04-20 12:37 | XMS_ITS | Encounter Summary ---
Author Organization [facility] Address 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
--- OUTSIDE RECORDS SUMMARY | 2025-04-20 12:37 | XMS_ITS | Clinical Summary ---
Author Organization [facility] Address [address] [place] [address] Care Team Providers Care Dietary Service Aide Name Role Phone Tray Rose MD Primary [...] mg SL tabletIndicatio ns:Coronary artery disease involving [place] coronary artery of [place] heart without angina pectoris Place 1 tablet [...] (05/02/2020): Added automatically from request for surgery [id number] Coronary artery disease invo lving [place] coronary artery of [place] heart without angina pectoris 12/03/2017 Assessment & Plan (11/21/2021 11:26 AM COSMETIC SALES CONSULTANT): No symptoms of myocardial ischemia. Continue aspirin 325 mg daily. No stress- induced ischemia on recent pharmacologic MPI. He was advised of my skilled nursing in February 2022. I recommended that he see a capital markets specialist in six months. He is going to consider whether he wants to switch to the [facility] which is closer to his home, or see someone here at [facility]. He will call and let us know. Assessment & Plan (05/16/2021 12:35 PM CDT): No symptoms of chest discomfort. Most recent stress test showed fixed abnormalities and no stress-induced ischemia. Will repeat because of increasing exertional dyspnea. Assessment & Plan (11/17/2020 11:20 AM COSMETIC SALES CONSULTANT): No symptoms of myocardial ischemia. Recent favorable MPI. Continue aspirin. Assessment & Plan (05/26/2020 10:34 AM CDT): No symptoms of chest discomfort. Exertional dyspnea could be an angina equivalent. As he appears to be facing back surgery, will obtain a Lexiscan study. Assessment & Plan (11/26/2019 10:26 AM COSMETIC SALES CONSULTANT): No symptoms of myocardial ischemia. Continue aspirin. Assessment & Plan (06/06/2019 3:30 PM CDT): Asymptomatic. Continue aspirin. Assessment & Plan (12/05/2018 11:05 AM COSMETIC SALES CONSULTANT): Asymptomatic. Continue aspirin. Assessment & Plan (06/03/2018 11:07 AM CDT): Asymptomatic. Continue aspirin. Assessment & Plan (12/03/2017 11:31 AM COSMETIC SALES CONSULTANT): No symptoms of myocardial ischemia. He is on anti-platelet and beta-wilfrido therapy. He was given a new prescription for nitroglycerin since his current supply has crumbled. He has not been needing to use it. Essential hypertension 12/03/2017 Assessment & Plan (11/21/2021 11:25 AM COSMETIC SALES CONSULTANT): Blood pressure is well controlled on current regimen which has been adjusted for his renal insufficiency. Assessment & Plan (05/16/2021 12:35 PM CDT): Blood pressure is higher than usual. He will monitor it at home. If it is elevated at home there is room to increase his hydralazine dosage. Assessment & Plan (11/17/2020 11:20 AM COSMETIC SALES CONSULTANT): Blood pressure is adequately controlled on current regimen. No change was made. Assessment & Plan (05/26/2020 10:34 AM CDT): Blood pressure is adequately controlled on current regimen. No change was made. Assessment & Plan (11/26/2019 10:26 AM COSMETIC SALES CONSULTANT): Blood pressure is adequately controlled on current regimen. No change was made. Assessment & Plan (06/06/2019 3:31 PM CDT): Blood pressure is adequately controlled on current regimen. No change was made. Assessment & Plan (12/05/2018 11:05 AM COSMETIC SALES CONSULTANT): Blood pressure is adequately controlled on current regimen. No change was made. Assessment & Plan (06/03/2018 11:07 AM CDT): Not ideally controlled. There may be some component of office hypertension. Will increase hydralazine to 25 mg b.i.d.. He is to call me with blood pressures in a couple of weeks. Assessment & Plan (12/03/2017 11:31 AM COSMETIC SALES CONSULTANT): Blood pressure is adequately controlled on current regimen. No change was made. Hyperlipidemia 12/03/2017 Assessment & Plan (11/21/2021 11:26 AM COSMETIC SALES CONSULTANT): He tolerates low intensity statin therapy, simvastatin 20 mg daily. He has not previously tolerated high-intensity statin therapy. Assessment & Plan (05/16/2021 12:36 PM CDT): He does not tolerate high-intensity statin therapy but on low intensity statin therapy his LDL today is 53. Assessment & Plan (11/17/2020 11:20 AM COSMETIC SALES CONSULTANT): On chronic lipid lowering therapy with good control. No changes made. Assessment & Plan (05/26/2020 10:39 AM CDT): On chronic lipid lowering therapy with good control. No changes made. He has previously not tolerated high-intensity statin therapy and is on intermediate intensity statin therapy. Assessment & Plan (11/26/2019 10:26 AM COSMETIC SALES CONSULTANT): On chronic lipid lowering therapy with good control. No changes made. Assessment & Plan (06/06/2019 3:34 PM CDT): On chronic lipid lowering therapy with good control. No changes made. Assessment & Plan (12/05/2018 11:05 AM COSMETIC SALES CONSULTANT): On chronic lipid lowering therapy with good control. No changes made. Assessment & Plan (06/03/2018 11:09 AM CDT): On chronic lipid lowering therapy with good control. No changes made. Assessment & Plan (12/03/2017 11:31 AM COSMETIC SALES CONSULTANT): On chronic lipid lowering therapy with good control. No changes made. Ischemic cardiomyopathy 12/03/2017 Assessment & Plan (11/21/2021 11:25 AM COSMETIC SALES CONSULTANT): Despite his reduced ejection fraction, he has not clinically had congestive heart failure. Continue carvedilol 25 mg b.i.d. and hydralazine 25 mg b.i.d.. Assessment & Plan (05/16/2021 12:35 PM CDT): EF was 32% by nuclear methodology but better than that by echo. He is on carvedilol and hydralazine. Assessment & Plan (11/17/2020 11:20 AM COSMETIC SALES CONSULTANT): No evidence of congestive heart failure. Continue [...] breath. Assessment & Plan (11/26/2019 10:26 AM COSMETIC SALES CONSULTANT): No evidence of congestive heart failure by exam or chest x-ray on current regimen. Assessment & Plan (06/06/2019 3:31 PM CDT): Mild exertional dyspnea which has not progressed. There is no evidence of congestive heart failure. Assessment & Plan (12/05/2018 11:05 AM COSMETIC SALES CONSULTANT): Well compensated on current regimen. No change made in medications. Assessment & Plan (06/03/2018 11:09 AM CDT): Well compensated. No evidence of congestive heart failure. Assessment & Plan (12/03/2017 11:31 AM COSMETIC SALES CONSULTANT): Moderately reduced ejection fraction. He is on [...] Description 02/01/2025 1:00 PM CDT Office Visit [facility] Card[facility] [address] [place] [address] Debra Moses NP Coronary artery disease involving [place] coronary artery of [place] heart without angina pectoris (Primary Dx); Ischemic [...] on file Legal Sex Male 1:56 AM COSMETIC SALES CONSULTANT Gender Identity Not on file Sexual Orientation Not on file Obstetrics History Last Filed Vital Signs Vital Sign Reading Time Taken Comments Blood Pressure 140/58 02/01/2025 1:00 PM CDT Pulse 54 02/01/2025 1:00 PM CDT Temperature 36.7 C (98.1 F) 01/18/2023 7:05 AM COSMETIC SALES CONSULTANT Respiratory Rate 16 01/18/2023 8:00 AM COSMETIC SALES CONSULTANT Oxygen Saturation 97% 02/01/2025 1:00 PM CDT Inhaled Oxygen Concentration - - Weight 78 kg (172 lb) 02/01/2025 1:00 PM CDT Height 172.7 cm (5' 8) 02/01/2025 1:00 PM CDT Body Mass Index 26.15 02/01/2025 1:00 PM CDT Plan of Treatment Health Maintenance Due Date Last Done Comments Depression Screening 1937 Hepatitis B Screening 1955 Zoster Vaccine (1 of 2) 1987 Well Visit 65+ 2002 Fall Risk Assessment 01/19/2024 01/18/2023, 09/11/2022, 10/27/2021, Additional history exists DTaP/Tdap/Td Vaccine (2 - Td or Tdap) 04/05/2025 04/05/2015, 11/23/2003 Influenza Vaccine (Season Ended) 2025 07/21/2020, 08/24/2019, 08/01/2018, Additional history exists Pneumococcal vaccine 65+ Completed 12/03/2015, 03/2005 Goals [...] on stairs Contact your local community or senior center for information on exercise, fall prevention programs, or options for improving home safety. Insurance [facility] MEDICARE [facility] Address: [address] [address] [place] [address] [facility] Address: [address] [place] [address] Care Teams Dietary Service Aide Relationship Specialty Start Date End Date Tray Rose MD PCP - General Family Practice 01/17/23
--- OUTSIDE RECORDS SUMMARY | 2025-04-20 12:37 | XMS_ITS | Encounter Summary ---
Author Organization [facility] Address [address] [place] [address] Care Team Providers Care New Car Get Ready Mechanic Name Role Phone Tray Rose MD Primary Care Provider Encounter Details Date Type Department Care Team (Late st Contact Info) Description 03/25/2003 Outpatient Historical [facility] Support Serv. (Adt Cardiology[facility]) [address] 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
--- OUTSIDE RECORDS SUMMARY | 2025-04-20 12:37 | XMS_ITS | Encounter Summary ---
Author Organization [facility] Address 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
--- OUTSIDE RECORDS SUMMARY | 2025-04-20 12:37 | XMS_ITS | Referral Summary ---
Author Organization [facility] D Address [address] [place] [address] Care Team Providers Care Professor Of Latin American Studies Name Role Phone Tray Rose MD Primary Care Provider Encounters Date Type Department Care Team Description 02/01/2025 1:00 PM CDT Office Visit [facility] Card[facility] [address] [place] [address] Debra Moses NP Coronary artery disease involving coquille coronary artery of coquille heart without angina pectoris (Primary Dx); Ischemic [...] mg SL tabletIndicatio ns:Coronary artery disease involving coquille coronary artery of coquille heart without angina pectoris Place 1 tablet [...] (05/02/2020): Added automatically from request for surgery [id number] Coronary artery disease invo lving coquille coronary artery of coquille heart without angina pectoris 12/03/2017 Assessment & Plan (11/21/2021 11:26 AM SCREEN AND CYCLONE REPAIRER): No symptoms of myocardial ischemia. Continue aspirin 325 mg daily. No stress- induced ischemia on recent pharmacologic MPI. He was advised of my detention in February 2022. I recommended that he see a messaging architect in six months. He is going to consider whether he wants to [facility] which [facility] closer to his home, or see someone here at [facility]. He will call and let us know. Assessment & Plan (05/16/2021 12:35 PM CDT): No symptoms of chest discomfort. Most recent stress test showed fixed abnormalities and no stress-induced ischemia. Will repeat because of increasing exertional dyspnea. Assessment & Plan (11/17/2020 11:20 AM SCREEN AND CYCLONE REPAIRER): No symptoms of myocardial ischemia. Recent favorable MPI. Continue aspirin. Assessment & Plan (05/26/2020 10:34 AM CDT): No symptoms of chest discomfort. Exertional dyspnea could be an angina equivalent. As he appears to be facing back surgery, will obtain a Lexiscan study. Assessment & Plan (11/26/2019 10:26 AM SCREEN AND CYCLONE REPAIRER): No symptoms of myocardial ischemia. Continue aspirin. Assessment & Plan (06/06/2019 3:30 PM CDT): Asymptomatic. Continue aspirin. Assessment & Plan (12/05/2018 11:05 AM SCREEN AND CYCLONE REPAIRER): Asymptomatic. Continue aspirin. Assessment & Plan (06/03/2018 11:07 AM CDT): Asymptomatic. Continue aspirin. Assessment & Plan (12/03/2017 11:31 AM SCREEN AND CYCLONE REPAIRER): No symptoms of myocardial ischemia. He is on anti-platelet and beta-wiflrido therapy. He was given a new prescription for nitroglycerin since his current supply has crumbled. He has not been needing to use it. Essential hypertension 12/03/2017 Assessment & Plan (11/21/2021 11:25 AM SCREEN AND CYCLONE REPAIRER): Blood pressure is well controlled on current regimen which has been adjusted for his renal insufficiency. Assessment & Plan (05/16/2021 12:35 PM CDT): Blood pressure is higher than usual. He will monitor it at home. If it is elevated at home there is room to increase his hydralazine dosage. Assessment & Plan (11/17/2020 11:20 AM SCREEN AND CYCLONE REPAIRER): Blood pressure is adequately controlled on current regimen. No change was made. Assessment & Plan (05/26/2020 10:34 AM CDT): Blood pressure is adequately controlled on current regimen. No change was made. Assessment & Plan (11/26/2019 10:26 AM SCREEN AND CYCLONE REPAIRER): Blood pressure is adequately controlled on current regimen. No change was made. Assessment & Plan (06/06/2019 3:31 PM CDT): Blood pressure is adequately controlled on current regimen. No change was made. Assessment & Plan (12/05/2018 11:05 AM SCREEN AND CYCLONE REPAIRER): Blood pressure is adequately controlled on current regimen. No change was made. Assessment & Plan (06/03/2018 11:07 AM CDT): Not ideally controlled. There may be some component of office hypertension. Will increase hydralazine to 25 mg b.i.d.. He is to call me with blood pressures in a couple of weeks. Assessment & Plan (12/03/2017 11:31 AM SCREEN AND CYCLONE REPAIRER): Blood pressure is adequately controlled on current regimen. No change was made. Hyperlipidemia 12/03/2017 Assessment & Plan (11/21/2021 11:26 AM SCREEN AND CYCLONE REPAIRER): He tolerates low intensity statin therapy, simvastatin 20 mg daily. He has not previously tolerated high-intensity statin therapy. Assessment & Plan (05/16/2021 12:36 PM CDT): He does not tolerate high-intensity statin therapy but on low intensity statin therapy his LDL today is 53. Assessment & Plan (11/17/2020 11:20 AM SCREEN AND CYCLONE REPAIRER): On chronic lipid lowering therapy with good control. No changes made. Assessment & Plan (05/26/2020 10:39 AM CDT): On chronic lipid lowering therapy with good control. No changes made. He has previously not tolerated high-intensity statin therapy and is on intermediate intensity statin therapy. Assessment & Plan (11/26/2019 10:26 AM SCREEN AND CYCLONE REPAIRER): On chronic lipid lowering therapy with good control. No changes made. Assessment & Plan (06/06/2019 3:34 PM CDT): On chronic lipid lowering therapy with good control. No changes made. Assessment & Plan (12/05/2018 11:05 AM SCREEN AND CYCLONE REPAIRER): On chronic lipid lowering therapy with good control. No changes made. Assessment & Plan (06/03/2018 11:09 AM CDT): On chronic lipid lowering therapy with good control. No changes made. Assessment & Plan (12/03/2017 11:31 AM SCREEN AND CYCLONE REPAIRER): On chronic lipid lowering therapy with good control. No changes made. Ischemic cardiomyopathy 12/03/2017 Assessment & Plan (11/21/2021 11:25 AM SCREEN AND CYCLONE REPAIRER): Despite his reduced ejection fraction, he has not clinically had congestive heart failure. Continue carvedilol 25 mg b.i.d. and hydralazine 25 mg b.i.d.. Assessment & Plan (05/16/2021 12:35 PM CDT): EF was 32% by nuclear methodology but better than that by echo. He is on carvedilol and hydralazine. Assessment & Plan (11/17/2020 11:20 AM SCREEN AND CYCLONE REPAIRER): No evidence of congestive heart failure. Continue [...] breath. Assessment & Plan (11/26/2019 10:26 AM SCREEN AND CYCLONE REPAIRER): No evidence of congestive heart failure by exam or chest x-ray on current regimen. Assessment & Plan (06/06/2019 3:31 PM CDT): Mild exertional dyspnea which has not progressed. There is no evidence of congestive heart failure. Assessment & Plan (12/05/2018 11:05 AM SCREEN AND CYCLONE REPAIRER): Well compensated on current regimen. No change made in medications. Assessment & Plan (06/03/2018 11:09 AM CDT): Well compensated. No evidence of congestive heart failure. Assessment & Plan (12/03/2017 11:31 AM SCREEN AND CYCLONE REPAIRER): Moderately reduced ejection fraction. He is on [...] on file Legal Sex Male 1:56 AM SCREEN AND CYCLONE REPAIRER Gender Identity Not on file Sexual Orientation Not on file Last Filed Vital Signs Vital Sign Reading Time Taken Comments Blood Pressure 140/58 02/01/2025 1:00 PM CDT Pulse 54 02/01/2025 1:00 PM CDT Temperature 36.7 C (98.1 F) 01/18/2023 7:05 AM SCREEN AND CYCLONE REPAIRER Respiratory Rate 16 01/18/2023 8:00 AM SCREEN AND CYCLONE REPAIRER Oxygen Saturation 97% 02/01/2025 1:00 PM CDT [...] on stairs Contact your local community or [facility] for information on exercise, fall prevention programs, or options for improving home safety. Insurance [facility] MEDICARE ADVANTAGE [facility] MEDICARE Care Teams Professor Of Latin American Studies Relationship Specialty Start Date End Date Tray Rose MD PCP - General Family Practice 01/17/23
--- OUTSIDE RECORDS SUMMARY | 2025-04-20 12:37 | XMS_ITS ---
[facility] Organization [facility] D Address [address] [place] [id number] Care Team Providers Care Neuro Psych Sales Specialist Name Role Phone Tray Rose MD Primary [...] (05/02/2020): Added automatically from request for surgery [id number] Coronary artery disease invo lving [place]am[place] coronary artery of [place] heart without angina pectoris 12/03/2017 Assessment & Plan (11/21/2021 11:26 AM LOADING SUPERVISOR): No symptoms of myocardial ischemia. Continue aspirin 325 mg daily. No stress- induced ischemia on recent pharmacologic MPI. He was advised of my long term in February 2022. I recommended that he see a curling machine operator in six months. He is going to consider whether he wants to switch to [facility] which is closer to his home, or see someone here at [facility]. He will call and let us know. Assessment & Plan (05/16/2021 12:35 PM CDT): No symptoms of chest discomfort. Most recent stress test showed fixed abnormalities and no stress-induced ischemia. Will repeat because of increasing exertional dyspnea. Assessment & Plan (11/17/2020 11:20 AM LOADING SUPERVISOR): No symptoms of myocardial ischemia. Recent favorable MPI. Continue aspirin. Assessment & Plan (05/26/2020 10:34 AM CDT): No symptoms of chest discomfort. Exertional dyspnea could be an angina equivalent. As he appears to be facing back surgery, will obtain a Lexiscan study. Assessment & Plan (11/26/2019 10:26 AM LOADING SUPERVISOR): No symptoms of myocardial ischemia. Continue aspirin. Assessment & Plan (06/06/2019 3:30 PM CDT): Asymptomatic. Continue aspirin. Assessment & Plan (12/05/2018 11:05 AM LOADING SUPERVISOR): Asymptomatic. Continue aspirin. Assessment & Plan (06/03/2018 11:07 AM CDT): Asymptomatic. Continue aspirin. Assessment & Plan (12/03/2017 11:31 AM LOADING SUPERVISOR): No symptoms of myocardial ischemia. He is on anti-platelet and beta-wilfrido therapy. He was given a new prescription for nitroglycerin since his current supply has crumbled. He has not been needing to use it. Essential hypertension 12/03/2017 Assessment & Plan (11/21/2021 11:25 AM LOADING SUPERVISOR): Blood pressure is well controlled on current regimen which has been adjusted for his renal insufficiency. Assessment & Plan (05/16/2021 12:35 PM CDT): Blood pressure is higher than usual. He will monitor it at home. If it is elevated at home there is room to increase his hydralazine dosage. Assessment & Plan (11/17/2020 11:20 AM LOADING SUPERVISOR): Blood pressure is adequately controlled on current regimen. No change was made. Assessment & Plan (05/26/2020 10:34 AM CDT): Blood pressure is adequately controlled on current regimen. No change was made. Assessment & Plan (11/26/2019 10:26 AM LOADING SUPERVISOR): Blood pressure is adequately controlled on current regimen. No change was made. Assessment & Plan (06/06/2019 3:31 PM CDT): Blood pressure is adequately controlled on current regimen. No change was made. Assessment & Plan (12/05/2018 11:05 AM LOADING SUPERVISOR): Blood pressure is adequately controlled on current regimen. No change was made. Assessment & Plan (06/03/2018 11:07 AM CDT): Not ideally controlled. There may be some component of office hypertension. Will increase hydralazine to 25 mg b.i.d.. He is to call me with blood pressures in a couple of weeks. Assessment & Plan (12/03/2017 11:31 AM LOADING SUPERVISOR): Blood pressure is adequately controlled on current regimen. No change was made. Hyperlipidemia 12/03/2017 Assessment & Plan (11/21/2021 11:26 AM LOADING SUPERVISOR): He tolerates low intensity statin therapy, simvastatin 20 mg daily. He has not previously tolerated high-intensity statin therapy. Assessment & Plan (05/16/2021 12:36 PM CDT): He does not tolerate high-intensity statin therapy but on low intensity statin therapy his LDL today is 53. Assessment & Plan (11/17/2020 11:20 AM LOADING SUPERVISOR): On chronic lipid lowering therapy with good control. No changes made. Assessment & Plan (05/26/2020 10:39 AM CDT): On chronic lipid lowering therapy with good control. No changes made. He has previously not tolerated high-intensity statin therapy and is on intermediate intensity statin therapy. Assessment & Plan (11/26/2019 10:26 AM LOADING SUPERVISOR): On chronic lipid lowering therapy with good control. No changes made. Assessment & Plan (06/06/2019 3:34 PM CDT): On chronic lipid lowering therapy with good control. No changes made. Assessment & Plan (12/05/2018 11:05 AM LOADING SUPERVISOR): On chronic lipid lowering therapy with good control. No changes made. Assessment & Plan (06/03/2018 11:09 AM CDT): On chronic lipid lowering therapy with good control. No changes made. Assessment & Plan (12/03/2017 11:31 AM LOADING SUPERVISOR): On chronic lipid lowering therapy with good control. No changes made. Ischemic cardiomyopathy 12/03/2017 Assessment & Plan (11/21/2021 11:25 AM LOADING SUPERVISOR): Despite his reduced ejection fraction, he has not clinically had congestive heart failure. Continue carvedilol 25 mg b.i.d. and hydralazine 25 mg b.i.d.. Assessment & Plan (05/16/2021 12:35 PM CDT): EF was 32% by nuclear methodology but better than that by echo. He is on carvedilol and hydralazine. Assessment & Plan (11/17/2020 11:20 AM LOADING SUPERVISOR): No evidence of congestive heart failure. Continue [...] breath. Assessment & Plan (11/26/2019 10:26 AM LOADING SUPERVISOR): No evidence of congestive heart failure by exam or chest x-ray on current regimen. Assessment & Plan (06/06/2019 3:31 PM CDT): Mild exertional dyspnea which has not progressed. There is no evidence of congestive heart failure. Assessment & Plan (12/05/2018 11:05 AM LOADING SUPERVISOR): Well compensated on current regimen. No change made in medications. Assessment & Plan (06/03/2018 11:09 AM CDT): Well compensated. No evidence of congestive heart failure. Assessment & Plan (12/03/2017 11:31 AM LOADING SUPERVISOR): Moderately reduced ejection fraction. He is on [...]
[2025-04-20 16:50] LABS: Hemoglobin A1C 5.4 % (<5.7)
[2025-04-20 17:05] LABS: Alanine Aminotransferase 21 U/L (6-50); Albumin Level 4.1 g/dL (3.5-5.1); Alkaline Phosphatase 62 U/L (38-126); Anion Gap 8 mmol/L (4-12); Aspartate Amino Transferase 32 U/L (17-59); Bilirubin,Total 0.4 mg/dL (0.2-1.3); Blood Urea Nitrogen 36 mg/dL (9-20); Calcium 9.4 mg/dL (8.4-10.2); Carbon Dioxide 28 mmol/L (22-30); Chloride 104 mmol/L (98-107); Estimated Glomerular Filt Rate 38; Glucose 86 mg/dL (65-110); Potassium 3.9 mmol/L (3.4-5.0); Sodium 140 mmol/L (137-145)
== END 2025-04-20 11:17 | disposition home or self-care (01) ==
LOC: ANHGOSHLAB 11:16
PROVIDERS: PCP Family Medicine; Visit Provider Family Medicine
DX: R73.03 Prediabetes (principal); I10 Essential (primary) hypertension
CPT/HCPCS: 36415; 80053; 83036